=== PATIENT | male | born 1955 | race Caucasian/White ===

== ENCOUNTER 2016-09-19 14:26 | Emergency (ER) | payer MEDICARE, MEDICAID ==
[2016-09-19] MEDS ORDERED: HYDROmorphone* 1 MG/ML 1 ML SYR IV ONE ×3 (16:34→18:03)
[2016-09-19] MEDS ORDERED: Ondansetron INJ* 2 MG/ML VIAL IV ONE ×3 (16:34→21:17)
[2016-09-19] MEDS ORDERED: NS 0.9% 1000 ML* 1,000 ML IV ONE (16:35)
[2016-09-19] MEDS ORDERED: Ondansetron INJ* 2 MG/ML VIAL ONE (16:37)
[2016-09-19 16:40] LABS: Hematocrit 40 % (42-52); Hemoglobin 13.9 g/dl (14.0-18.0); Mean Corpuscular HGB Conc 35 g/dl (31-36); Mean Corpuscular Hemoglobin 29 pg (27-31); Mean Corpuscular Volume 85 fL (80-94); Mean Platelet Volume 8 um3 (7.4-10.4); Red Blood Count 4.73 10^6/ul (4.0-5.4); Red Cell Distribution Width 14 % (10.5-15); White Blood Count 9.8 10^3/ul (3.5-10.8)
[2016-09-19 17:04] LABS: Albumin 3.9 g/dL (3.2-5.2); C Reactive Protein 22.19 mg/L (< 5.00); EGFR African American 98.4 (>60); EGFR Non-African American 76.5 (>60); Globulin 2.8 g/dL (2-4); Potassium 3.3 mmol/L (3.5-5.0); Total Bilirubin 0.7 mg/dL (0.2-1.0); Total Protein 6.7 g/dL (6.4-8.9)
--- NOTE | 2016-09-19 18:12 | RAD ---
INDICATION: Right-sided abdominal pain. COMPARISON: Comparison is made with a prior CT of the abdomen and pelvis from September 13, 2012. TECHNIQUE: A CT scan of the abdomen and pelvis was performed without intravenous or oral contrast. Contiguous axial sections were obtained from the lung bases through the symphysis pubis. Images were reconstructed in the coronal and sagittal planes. FINDINGS: There is mild dependent bilateral lower lobe subsegmental atelectasis. No pleural effusion is present. The liver is normal in size without significant focal abnormality on this noncontrast study. The spleen is mildly enlarged without focal abnormality. No calcified gallstones are seen. The pancreas appears to be within normal limits. The kidneys and adrenal glands are normal in size. There are multiple small bilateral renal calculi measuring up to 5 mm within the right kidney. No hydronephrosis is seen. No ureteral or bladder calculi are noted. The aorta is normal in caliber with moderate calcific plaque present. No significant enlarged retroperitoneal lymph nodes are seen. The stomach, small and large bowel appear nondistended. There is a suture line present along the lateral aspect of the stomach possibly related to a gastric sleeve procedure. The patient is status post appendectomy by history. There is mild to moderate descending and sigmoid diverticulosis without evidence for diverticulitis. There is a suture line present within the sigmoid colon. Dense contrast is noted within a couple diverticuli in the right moderate likely from the patient's prior upper GI series from August 02, 2016. There is a periumbilical hernia containing fat. No free intraperitoneal air or fluid is seen. No significant focal osseous abnormality is seen. IMPRESSION: MULTIPLE BILATERAL RENAL CALCULI, NO EVIDENCE FOR HYDRONEPHROSIS, URETERAL OR BLADDER CALCULI.
[2016-09-19] MEDS ORDERED: Pantoprazole IV* 40 MG IV ONE (19:13)
[2016-09-19] MEDS ORDERED: Metoclopramide IV* 5 MG/ML 2 ML VIAL IV ONE (19:13)
[2016-09-19] MEDS ORDERED: Ketorolac INJ* 30 MG/ML 1 ML VIAL IV ONE (19:13)
--- NOTE | 2016-09-19 19:22 | ED ---
I, DoctorOrquidea, scribed for Abdullahi Ortiz MD on 09/19/16 at 1604 . GI/ HPI - HPI Summary HPI Summary: 61 year old male arrived to [facility] c/o abdominal pain for 3 weeks. He is experiencing some pain on the left side, but it is primarily localized to the right. He rates his pain as 10/10, and describes it as initially dull but now very sharp. The pain radiates from his abdomen to his right flank; it is aggravated with movement and pressure. He has also been experiencing vomiting, nausea, watery diarrhea, and decreased p.o. intake. Pt reports that for the past 2 weeks, he has been unable to hold down any food (vomits 15-30 minutes after eating). He recently had bariatric surgery (03/2016), and indicates that he has been experiencing increased nausea and vomiting since. He also has a kidney stone, but was told by his [employer] (Dr. Mccarty) that it was not of immediate concern. Additionally, he takes regular medication for gout. - History of Current Complaint Chief Complaint: EDAbdPain Time Seen by Provider: 09/19/16 15:48 Stated Complaint: ABD/BACK PAIN Hx Obtained From: Patient Onset/Duration: Started Weeks Ago, Still Present Timing: Constant Severity: Moderate Current Severity: Moderate Pain Intensity: 10 - on 0-10 numerical scale Location of Pain: RUQ, RLQ Pain Characteristics: Sharp - current, Dull - initially dull Pain Radiates to: Flank - right Associated Signs and Symptoms: Positive: Nausea, Vomiting, Diarrhea, Change in Appetite - decreased po intake, Flank Pain, Abdominal Pain Aggravating Factor(s): Movement - Additional Pertinent History Primary Care Physician: [id number] - Allergy/Home Medications Allergies/Adverse Reactions: Allergies Allergy/AdvReac Type Severity Reaction Status Date / Time Iodine Allergy Severe Rash Verified 04/05/16 07:28 Liraglutide [From Victoza] Allergy Severe See Comment Verified 04/05/16 07:28 Meperidine [From Demerol HCl] Allergy Severe Hives Verified 04/05/16 07:28 Phenol [From Victoza] Allergy Severe See Comment Verified 04/05/16 07:28 Propylene Glycol Allergy Severe See Comment Verified 04/05/16 07:28 [From Victoza] Shellfish Allergy Allergy Severe hives/sob Verified 04/05/16 07:28 SEAFOOD Allergy Rash Uncoded 04/05/16 07:28 PMH/Surg Hx/FS Hx/Imm Hx Endocrine/Hematology History: Reports: Hx Anticoagulant Therapy - Plavix, Hx Diabetes - TYPE II- INSULIN Denies: Hx Blood Disorders, Hx Thyroid Disease, Hx Unexplained Bleeding Cardiovascular History: Reports: Hx Angina, Hx Angioplasty - Feb 1992 x2, Hx Auto Implanted Cardiovert Defib - AICD, Hx Congestive Heart Failure - IN THE PAST, Hx Coronary Artery Disease, Hx Hypercholesterolemia, Hx Myocardial Infarction, Hx Pacemaker/ICD - [facility]- DR. WALLACE BURKETT FOLLOWS, Hx Peripheral Vascular Disease, Hx Syncope, Other Cardiovascular Problems/ Disorders - 1991-ANGIOPLASTY X 2,TRIPLE BYPASS-2003 AND 3 STENTS-2011 Denies: Hx Deep Vein Thrombosis, Hx Hypertension, Hx Rheumatic Fever, Hx Valvular Heart Disease Respiratory History: Reports: Hx Asthma - HX OF, Hx Chronic Bronchitis, Hx Chronic Obstructive Pulmonary Disease (COPD), Hx Sleep Apnea - WEARS CPAP AT HOME, Other Respiratory Problems/Disorders - PNEUMONIA IN THE END OF DECEMBER Denies: Hx Cystic Fibrosis, Hx Lung Cancer, Hx Pleural Effusion, Hx Pneumonia , Hx Pulmonary Edema, Hx Pulmonary Embolism, Hx Seasonal Allergies GI History: Reports: Hx Diverticulosis, Hx Gastroesophageal Reflux Disease, Other GI Disorders - DIVERTICULITIS BOWEL RESECTION, 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, OBESITY Denies: Hx Ulcer History: Reports: Hx Kidney Stones - HX OF STATES NONE CURRENTLY, Other Problems/Disorders - URETHRAL STRICTURES IN THE PAST Musculoskeletal History: Reports: Hx Gout Denies: Other Musculoskeletal History Sensory History: Reports: Hx Contacts or Glasses - GLASSES, Hx Eye Prosthesis - LEFT EYE Denies: Hx Cataracts, Hx Eye Injury, Hx Glaucoma, Hx Macular Degeneration, Hx Deafness, Hx Hearing Aid Opthamlomology History: Reports: Hx Contacts or Glasses - GLASSES, Hx Eye Prosthesis - LEFT EYE Denies: Hx Cataracts, Hx Eye Injury, Hx Glaucoma, Hx Macular Degeneration Neurological History: Reports: Hx Transient Ischemic Attacks (TIA), Other Neuro Impairments/Disorders - POSSIBLE TIA IN 2009- STATES NO RESIDUAL - Surgical History Surgery Procedure, Year, and Place: L EYE REMOVED. CABG x3. ICD/defib in place 08/2011. BOWEL RESECTION 11/2009. CARDIAC CATH WITH STENTS X 3. LEFT EYE INJURY & REMOVAL OF EYE. appendectomy age 12. Angioplasty. Right second finger. Left lower leg- COMPOUND FRACTURE Hx Anesthesia Reactions: No - Immunization History Date of Tetanus Vaccine: Unk Date of Influenza Vaccine: Fall 2013 Infectious Disease History: Denies: Hx Clostridium Difficile, Hx Hepatitis, Hx Human Immunodeficiency Virus (HIV), Hx of Known/Suspected MRSA, Hx Shingles, Hx Tuberculosis, Hx Known/ Suspected VRE, Hx Known/Suspected VRSA, History Other Infectious Disease, Traveled Outside the [place] in Last 30 Days - Family History Known Family History: Positive: Cardiac Disease, Diabetes - Social History Alcohol Use: None Hx Substance Use: No Substance Use Type: Reports: None Hx Tobacco Use: Yes - 1 PACK EVERY 4 DAYS Smoking Status (MU): Former Smoker Type: Cigarettes Amount Used/How Often: 2 PPD X 34 YEARS Length of Time of Smoking/Using Tobacco: 40 years Have You Smoked in the Last Year: No Review of Systems Negative: Fever Gastrointestinal: Other - decreased po intake Positive: Abdominal Pain, Vomiting, Diarrhea, Nausea All Other Systems Reviewed And Are Negative: Yes Physical Exam Triage Information Reviewed: Yes Vital Signs On Initial Exam: Initial Vitals Temp Pulse Resp BP Pulse Ox 99.1 F 78 20 118/71 100 09/19/16 14:28 09/19/16 14:28 09/19/16 14:28 09/19/16 14:28 09/19/16 14:28 Vital Signs Reviewed: Yes Appearance: Positive: Well-Appearing, Pain Distress Skin: Positive: Warm, Skin Color Reflects Adequate Perfusion, Dry Head/Face: Positive: Normal Head/Face Inspection Eyes: Positive: Normal ENT: Positive: Normal ENT inspection Neck: Positive: Supple, Nontender Respiratory/Lung Sounds: Positive: Clear to Auscultation, Breath Sounds Present Cardiovascular: Positive: RRR Abdomen Description: Positive: Soft. Negative: Nontender - tender in the right periumbilical region Bowel Sounds: Positive: Present Musculoskeletal: Positive: Normal Neurological: Positive: Normal Psychiatric: Positive: Normal, Affect/Mood Appropriate Diagnostics - Vital Signs Vital Signs Temp Pulse Resp BP Pulse Ox 09/19/16 14:28 99.1 F 78 20 118/71 100 - Laboratory Lab Results: Lab Results 09/19/16 09/19/16 09/19/16 Range/Units 15:50 15:50 15:50 WBC 9.8 (3.5-10.8) 10^3/ul RBC 4.73 (4.0-5.4) 10^6/ul Hgb 13.9 L (14.0-18.0) g/dl Hct 40 L (42-52) % MCV 85 (80-94) fL MCH 29 (27-31) pg MCHC 35 (31-36) g/dl RDW 14 (10.5-15) % Plt Count 171 (150-450) 10^3/ul MPV 8 (7.4-10.4) um3 Neut % (Auto) 77.7 (38-83) % Lymph % (Auto) 14.7 L (25-47) % Elk % (Auto) 5.7 (1-9) % Eos % (Auto) 1.7 (0-6) % Baso % (Auto) 0.2 (0-2) % Absolute Neuts (auto) 7.6 (1.5-7.7) 10^3/ul Absolute Lymphs (auto) 1.4 (1.0-4.8) 10^3/ul Absolute Monos (auto) 0.6 (0-0.8) 10^3/ul Absolute Eos (auto) 0.2 (0-0.6) 10^3/ul Absolute Basos (auto) 0 (0-0.2) 10^3/ul Absolute Nucleated RBC 0 10^3/ul Nucleated RBC % 0 Sodium 137 (133-145) mmol/L Potassium 3.3 L (3.5-5.0) mmol/L Chloride 102 (101-111) mmol/L Carbon Dioxide 27 (22-32) mmol/L Anion Gap 8 (2-11) mmol/L BUN 10 (6-24) mg/dL Creatinine 1.00 (0.67-1.17) mg/dL Est GFR ( Amer) 98.4 (>60) Est GFR (Non-Af Amer) 76.5 (>60) BUN/Creatinine Ratio 10.0 (8-20) Glucose 103 H (70-100) mg/dL Lactic Acid 0.8 (0.5-2.0) mmol/L Calcium 9.0 (8.6-10.3) mg/dL Total Bilirubin 0.70 (0.2-1.0) mg/dL AST 16 (13-39) U/L ALT 12 (7-52) U/L Alkaline Phosphatase 63 (34-104) U/L C-Reactive Protein 22.19 H (< 5.00) mg/L Total Protein 6.7 (6.4-8.9) g/dL Albumin 3.9 (3.2-5.2) g/dL Globulin 2.8 (2-4) g/dL Albumin/Globulin Ratio 1.4 (1-3) Lipase 22 (11.0-82.0) U/L Result Diagrams: 09/19/16 15:50 09/19/16 15:50 Lab Statement: Any lab studies that have been ordered have been reviewed, and results considered in the medical decision making process. - CT CT A/P W/O [CT] CT Interpretation Completed By: Radiologist - IMPRESSION: MULTIPLE BILATERAL RENAL CALCULI, NO EVIDENCE FOR HYDRONEPHROSIS, URETERAL OR BLADDER CALCULI. GIGU Course/Dx - Course Course Of Treatment: Mr. Rosenthal's labs and CT were unremarkable but his pain is severe and refractory to treatment. I consulted Dr. Vera and she recommended an upper GI series after consulting with Dr. Jose. We aare unable to obtain that at this time so will do a PO contrast CT. - Diagnoses Provider Diagnoses: Abdominal pain - Physician Notifications Discussed Care Of Patient With: Dr. Vera Discharge - Discharge Plan Condition: Stable Disposition: ADMITTED TO [facility] documentation as recorded by the Doctor mcqueen Tahera accurately reflects the service I personally performed and the decisions made by me, Abdullahi Ortiz MD.
[2016-09-19 20:19] LABS: Urine Bilirubin Negative (Negative); Urine Glucose Negative (Negative); Urine Nitrite Negative (Negative)
[2016-09-19 22:21] VITALS: BP 100/57
== END 2016-09-19 22:19 | disposition left against medical advice (07) ==
LOC: ED 14:26
DX: R11.2 Nausea with vomiting, unspecified (principal); R19.7 Diarrhea, unspecified; Z87.891 Personal history of nicotine dependence; R10.84 Generalized abdominal pain
CPT/HCPCS: 36415; 74176; 80053; 81003; 83605; 83690; 85025; 86140; 99284; J1170; J1885; J2405

== ENCOUNTER 2017-03-18 21:21 | Emergency (ER) | payer MEDICARE, MEDICAID ==
[2017-03-18] MEDS ORDERED: Aspirin Low Dose CHEW TAB* 81 MG PO ONE (21:27)
[2017-03-18 22:03] LABS: Hematocrit 42 % (42-52); Hemoglobin 14.6 g/dl (14.0-18.0); Mean Corpuscular HGB Conc 35 g/dl (31-36); Mean Corpuscular Hemoglobin 31 pg (27-31); Mean Corpuscular Volume 89 fL (80-94); Mean Platelet Volume 8 um3 (7.4-10.4); Red Blood Count 4.74 10^6/ul (4.0-5.4); Red Cell Distribution Width 13 % (10.5-15); White Blood Count 9.2 10^3/ul (3.5-10.8)
[2017-03-18 22:18] LABS: Albumin 4.1 g/dL (3.2-5.2); BUN/Creatinine Ratio 15.2 (8-20); Calcium 8.9 mg/dL (8.6-10.3); EGFR Non-African American 59.1 (>60); Globulin 2.5 g/dL (2-4); Potassium 4.9 mmol/L (3.5-5.0); Total Bilirubin 0.5 mg/dL (0.2-1.0); Total Protein 6.6 g/dL (6.4-8.9)
--- NOTE | 2017-03-18 22:22 | RAD ---
INDICATION: Chest pain COMPARISON: Chest x-ray dated March 23, 2016 TECHNIQUE: Single AP portable view of the chest was obtained. FINDINGS: Image quality is compromised due to the relative inferiority of a portable chest x-ray. Stable postoperative findings include a left upper chest cardiac pacemaker with one lead overlying the heart and sternotomy wires. The heart and mediastinum exhibit normal size and contour. The lungs are grossly clear. There is no evidence of a large pleural effusion. Visualized bones are normal for the patient's age. IMPRESSION: No radiographic evidence for acute cardiopulmonary abnormality on this portable chest x-ray.
[2017-03-18] MEDS ORDERED: HYDROmorphone INJ* 1 MG/ML CARPUJECT SYRINGE IV SLOW PU ONE (23:16)
[2017-03-18] MEDS ORDERED: Ondansetron INJ* 2 MG/ML VIAL IV ONE (23:16)
[2017-03-18] MEDS ORDERED: fentaNYL* 50 MCG/ML 2 ML VIAL (100 MCG VIAL) IV SLOW PU ONE (23:27)
--- NOTE | 2017-03-18 23:44 | ED ---
Austin Sanford Rebecca, scribed for Maria L Sewell MD on 03/18/17 at 2204 . HPI Chest Pain - HPI Summary HPI Summary: Pt is a 61 y/o M who presents to ED c/o CP. Pain began at 2000 tonight and has been constant since onset. Pain is in the left anterior region, characterized as heaviness and is currently severe, ranked 9/10. Took NTG at home and was given 324 mg ASA upon arrival at [facility]. Sx aggravated and alleviated by nothing. Additionally notes tingling in the left anterior chest at 1500 that resolved shortly after onset. PMHx [place] x3 and current sx are similar to prior MIs. Reports he is hypotensive at baseline. - History of Current Complaint Chief Complaint: EDChestPainROMI Time Seen by Provider: 03/18/17 22:01 Hx Obtained From: Patient Onset/Duration: Still Present Time of Onset: 20:00 Timing: Constant Current Severity: Severe Pain Intensity: 8 Pain Scale Used: 0-10 Numeric Chest Pain Location: Left Anterior Chest Pain Radiates: No Character: Pressure/Squeezing Aggravating Factor(s): Nothing Alleviating Factor(s): Nothing Associated Signs and Symptoms: Positive: Other: - Left anterior chest tingling - resolved - Additional Pertinent History Primary Care Physician: [id number] - Allergy/Home Medications Allergies/Adverse Reactions: Allergies Allergy/AdvReac Type Severity Reaction Status Date / Time Iodine Allergy Severe Rash Verified 03/18/17 22:01 Liraglutide [From Victoza] Allergy Severe See Comment Verified 03/18/17 22:01 Meperidine [From Demerol HCl] Allergy Severe Hives Verified 03/18/17 22:01 Phenol [From Victoza] Allergy Severe See Comment Verified 03/18/17 22:01 Propylene Glycol Allergy Severe See Comment Verified 03/18/17 22:01 [From Victoza] Shellfish Allergy Allergy Severe hives/sob Verified 03/18/17 22:01 SEAFOOD Allergy Rash Uncoded 03/18/17 22:01 PMH/Surg Hx/FS Hx/Imm Hx Endocrine/Hematology History: Reports: Hx Anticoagulant Therapy - Plavix, Hx Diabetes - TYPE II- INSULIN Denies: Hx Blood Disorders, Hx Thyroid Disease, Hx Unexplained Bleeding Cardiovascular History: Reports: Hx Angina, Hx Angioplasty - Feb 1992 x2, Hx Auto Implanted Cardiovert Defib - AICD, Hx Congestive Heart Failure - IN THE PAST, Hx Coronary Artery Disease, Hx Hypercholesterolemia, Hx Myocardial Infarction, Hx Pacemaker/ICD, Hx Peripheral Vascular Disease, Hx Syncope, Other Cardiovascular Problems/Disorders - 1991-ANGIOPLASTY X 2,TRIPLE BYPASS-2003 AND 3 STENTS-2011 Denies: Hx Deep Vein Thrombosis, Hx Hypertension, Hx Rheumatic Fever, Hx Valvular Heart Disease Respiratory History: Reports: Hx Asthma - HX OF, Hx Chronic Bronchitis, Hx Chronic Obstructive Pulmonary Disease (COPD), Hx Sleep Apnea - WEARS CPAP AT HOME, Other Respiratory Problems/Disorders - PNEUMONIA IN THE END OF DECEMBER Denies: Hx Cystic Fibrosis, Hx Lung Cancer, Hx Pleural Effusion, Hx Pneumonia , Hx Pulmonary Edema, Hx Pulmonary Embolism, Hx Seasonal Allergies GI History: Reports: Hx Diverticulosis, Hx Gastroesophageal Reflux Disease, Other GI Disorders - DIVERTICULITIS BOWEL RESECTION, 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, OBESITY Denies: Hx Ulcer History: Reports: Hx Kidney Stones - HX OF STATES NONE CURRENTLY, Other Problems/Disorders - URETHRAL STRICTURES IN THE PAST Musculoskeletal History: Reports: Hx Gout Denies: Other Musculoskeletal History Sensory History: Reports: Hx Contacts or Glasses - GLASSES, Hx Eye Prosthesis - LEFT EYE Denies: Hx Cataracts, Hx Eye Injury, Hx Glaucoma, Hx Macular Degeneration, Hx Deafness, Hx Hearing Aid Opthamlomology History: Reports: Hx Contacts or Glasses - GLASSES, Hx Eye Prosthesis - LEFT EYE Denies: Hx Cataracts, Hx Eye Injury, Hx Glaucoma, Hx Macular Degeneration Neurological History: Reports: Hx Transient Ischemic Attacks (TIA), Other Neuro Impairments/Disorders - POSSIBLE TIA IN 2009- STATES NO RESIDUAL - Surgical History Surgery Procedure, Year, and Place: L EYE REMOVED. CABG x3. ICD/defib in place 08/2011. BOWEL RESECTION 11/2009. CARDIAC CATH WITH STENTS X 3. LEFT EYE INJURY & REMOVAL OF EYE. appendectomy age 12. Angioplasty. Right second finger. Left lower leg- COMPOUND FRACTURE Hx Anesthesia Reactions: No - Immunization History Date of Tetanus Vaccine: Unk Date of Influenza Vaccine: Fall 2013 Infectious Disease History: No Infectious Disease History: Denies: Hx Clostridium Difficile, Hx Hepatitis, Hx Human Immunodeficiency Virus (HIV), Hx of Known/Suspected MRSA, Hx Shingles, Hx Tuberculosis, Hx Known/ Suspected VRE, Hx Known/Suspected VRSA, History Other Infectious Disease, Traveled Outside the [place] in Last 30 Days - Family History Known Family History: Positive: Cardiac Disease, Diabetes - Social History Alcohol Use: None Hx Substance Use: No Substance Use Type: Reports: None Hx Tobacco Use: Yes - 1 PACK EVERY 4 DAYS Smoking Status (MU): Former Smoker Type: Cigarettes Amount Used/How Often: 2 PPD X 34 YEARS Length of Time of Smoking/Using Tobacco: 40 years Have You Smoked in the Last Year: No Review of Systems Positive: Other - Left anterior chest tingling - resolved. Negative: Fever Positive: Chest Pain All Other Systems Reviewed And Are Negative: Yes Physical Exam - Summary Physical Exam Summary: General: Well appearing, mild pain distress Skin: Warm, Skin Color Reflects Adequate Perfusion, Dry Eyes: EOMI, BLAISE ENT: Pharynx normal, TMs normal Neck: Supple, nontender Respiratory: CTA, breath sounds present, no rhonchi, no wheezes, no rales Cardiovascular: RRR, no murmur, no rub, no gallop, Abdomen: Soft, nontender, Non-distended, no guarding, no rebound Bowel: Present Musculoskeletal: SRAVANTHI, No edema Neuro: Sensory/motor intact, A&Ox3, CN intact 2-12 Psych: Affect/mood appropriate Triage Information Reviewed: Yes Vital Signs On Initial Exam: Initial Vitals Temp Pulse Resp BP Pulse Ox 98.6 F 73 14 124/79 98 03/18/17 21:24 03/18/17 21:24 03/18/17 21:24 03/18/17 21:24 03/18/17 21:24 Vital Signs Reviewed: Yes Diagnostics - Vital Signs Vital Signs Temp Pulse Resp BP Pulse Ox 03/18/17 21:24 98.6 F 73 14 124/79 98 - Laboratory Lab Results: Lab Results 03/18/17 03/18/17 03/18/17 Range/Units 21:52 21:52 21:52 WBC 9.2 (3.5-10.8) 10^3/ul RBC 4.74 (4.0-5.4) 10^6/ul Hgb 14.6 (14.0-18.0) g/dl Hct 42 (42-52) % MCV 89 (80-94) fL MCH 31 (27-31) pg MCHC 35 (31-36) g/dl RDW 13 (10.5-15) % Plt Count 165 (150-450) 10^3/ul MPV 8 (7.4-10.4) um3 Neut % (Auto) 67.4 (38-83) % Lymph % (Auto) 21.7 L (25-47) % Band[place] % (Auto) 6.9 (1-9) % Eos % (Auto) 3.0 (0-6) % Baso % (Auto) 1.0 (0-2) % Absolute Neuts (auto) 6.2 (1.5-7.7) 10^3/ul Absolute Lymphs (auto) 2.0 (1.0-4.8) 10^3/ul Absolute Monos (auto) 0.6 (0-0.8) 10^3/ul Absolute Eos (auto) 0.3 (0-0.6) 10^3/ul Absolute Basos (auto) 0.1 (0-0.2) 10^3/ul Absolute Nucleated RBC 0.01 10^3/ul Nucleated RBC % 0.1 INR (Anticoag Therapy) 0.91 (0.89-1.11) APTT 32.3 (26.0-36.3) seconds Sodium 135 (133-145) mmol/L Potassium 4.9 (3.5-5.0) mmol/L Chloride 100 L (101-111) mmol/L Carbon Dioxide 30 (22-32) mmol/L Anion Gap 5 (2-11) mmol/L BUN 19 (6-24) mg/dL Creatinine 1.25 H (0.67-1.17) mg/dL Est GFR ( Amer) 76.0 (>60) Est GFR (Non-Af Amer) 59.1 (>60) BUN/Creatinine Ratio 15.2 (8-20) Glucose 101 H (70-100) mg/dL Calcium 8.9 (8.6-10.3) mg/dL Total Bilirubin 0.50 (0.2-1.0) mg/dL AST 16 (13-39) U/L ALT 12 (7-52) U/L Alkaline Phosphatase 51 (34-104) U/L Troponin I 0.00 (<0.04) ng/mL Total Protein 6.6 (6.4-8.9) g/dL Albumin 4.1 (3.2-5.2) g/dL Globulin 2.5 (2-4) g/dL Albumin/Globulin Ratio 1.6 (1-3) Result Diagrams: 03/18/17 21:52 03/18/17 21:52 Lab Statement: Any lab studies that have been ordered have been reviewed, and results considered in the medical decision making process. - Radiology CXR Xray Interpretation: No Acute Changes - No radiographic evidence for acute cardiopulmonary abnormality on this portable chest x-ray. ED physician reviewed radiology repotr and agrees. Radiology Interpretation Completed By: Radiologist - EKG 2126 Cardiac Rate: NL - 68 bpm EKG Rhythm: Sinus Rhythm ST Segment: Non-Specific - Non-specific T wave changes EKG Interpretation: Anterior Qs EKG Comparison: No Significant Change - From EKG on 03/06/2016 Chest Pain Course/Dx - Course Course Of Treatment: 61 yo with cp since 8pm 01/05 not better with nitro. Pt was discussed with Dr. Ya for admission - Diagnoses Provider Diagnoses: Chest pain Discharge - Discharge Plan Condition: Stable Disposition: ADMITTED TO [facility] The documentation as recorded by the Austin mcqueen Rebecca accurately reflects the service I personally performed and the decisions made by , Maria L Sewell MD.
[2017-03-19 02:23] VITALS: BP 93/56
--- NOTE | 2017-03-21 02:47 | PN ---
Earlene Sanford Edward, scribed for Zachary Caceres on 03/19/17 at 0120 . Progress Note - Progress Note Date of Service: 03/19/17 Note: Pt wants pain medication. Discuss with Dr. Ya about pain medication and recommended not to prescribe any narcotics until he sees the patient. Pt wants to sign out AMA or walk out from the ER because he is demanding narcotics. Pt left AMA. The documentation as recorded by the karenibEarlene torres Edward accurately reflects the service I personally performed and the decisions made by Morris gray Emmanuel.
== END 2017-03-19 01:00 | disposition left against medical advice (07) ==
LOC: ED 21:21
DX: R07.9 Chest pain, unspecified (principal); Z79.02 Long term (current) use of antithrombotics/antiplatelets; Z95.810 Presence of automatic (implantable) cardiac defibrillator; I50.9 Heart failure, unspecified; I25.10 Atherosclerotic heart disease of native coronary artery without angina pectoris; E78.00 Pure hypercholesterolemia, unspecified; I25.2 Old myocardial infarction; I73.9 Peripheral vascular disease, unspecified; J44.9 Chronic obstructive pulmonary disease, unspecified; G47.30 Sleep apnea, unspecified; Z87.442 Personal history of urinary calculi; Z86.73 Personal history of transient ischemic attack (TIA), and cerebral infarction without residual deficits; Z87.891 Personal history of nicotine dependence; Z53.21 Procedure and treatment not carried out due to patient leaving prior to being seen by health care provider
CPT/HCPCS: 36415; 71010; 80053; 84484; 85025; 85610; 85730; 93005; 96374; 96375; 99284; A9270-GY; J1170; J2405; J3010

== ENCOUNTER 2017-06-26 07:11 | Day surgery (SDC) | payer MEDICAID, MEDICARE, OTHER ==
--- NOTE | 2017-06-16 07:32 | HP ---
PREOPERATIVE HISTORY AND PHYSICAL: DATE OF ADMISSION: 06/26/17 PROVIDER: Topher Barbour MD * (DICTATED BY ABNER CHANEY) CHIEF COMPLAINT: Left ankle pain. HISTORY OF PRESENT ILLNESS: Cholo is a 62-year-old gentleman who has been followed by Dr. Barbour for ongoing left ankle pain. He has had many injuries as he was playing football until his 40s, where he also sustained a compound fracture of his tibia. He reports that he had a deformity in the ankle. Ever since that time as the fracture healed with the some malalignment, the deformity in the ankle seems to be progressing worse. At this point, he has attempted bracing in the past with very minimal relief. He has also tried corticosteroids without any relief. He is interested in surgical intervention for correction of this problem. At this point, he states that this has been limiting his activities with any of his family. PAST MEDICAL HISTORY: 1. Cardiomyopathy. 2. Hypertension. 3. Congestive heart failure. 4. Angina. 5. COPD. 6. History of heart attack. 7. He has type 2 diabetes. 8. Gout. PAST SURGICAL HISTORY: 1. Three-vessel coronary artery bypass grafting in 2003. 2. Cardiac catheterization in 1991, 1992, and 2004. 3. Defibrillator placement in 2011. 4. Sigmoid colectomy in 2009. 5. Left eye surgery 1981. 6. Left eyelid surgery in 2014. 7. Bariatric surgery with a laparoscopic sleeve gastrectomy in 2015. 8. Lithotripsy x7. CURRENT MEDICATIONS: 1. Pravastatin sodium 80 mg 1 p.o. q.h.s. 2. Metoprolol succinate 50 mg 1 p.o. b.i.d. 3. Aspirin 81 mg 1 p.o. every day. 4. Protonix 40 mg 1 p.o. every day. 5. Fluticasone nasal spray 2 sprays in each nostril daily. 6. Nitroglycerine 0.5 mg p.r.n. 7. Ranexa 500 mg 2 tabs p.o. every day. 8. Plavix 75 mg 1 p.o. every day. 9. Albuterol sulfate nebulizer 4 times a day as needed. 10. Lasix 20 mg 1 p.o. every day. 11. Naproxen 500 mg 1 p.o. b.i.d. p.r.n. 12. Prochlorperazine maleate 10 mg as needed. 13. Allopurinol 100 mg p.o. every day. 14. Colchicine 0.6 mg 1 tab b.i.d. as needed. 15. Metoclopramide 5 mg p.o. every day as needed. 16. Vitamin B12 supplement. 17. Vitamin D supplement. 18. Potassium. ALLERGIES: DEMEROL, IODINE, SHELLFISH, DAIRY PRODUCTS, and VICTOZA. FAMILY HISTORY: Positive for diabetes, heart disease, hypertension, stroke, cancer and rheumatoid arthritis. SOCIAL HISTORY: He lives with his . He is disabled. He is a former smoker and quit in 2009. He smoked 1-1/2 to 2 packs of cigarettes per day since the age of 18 prior to that. He denies alcohol beverages. He exercises sporadically. REVIEW OF SYSTEMS: Constitutional: Negative for recent hospitalizations, fevers, chills, night sweats, or unexplained weight loss. Head: Negative for headache, lightheadedness or balance problems. Cardiovascular: Negative for chest or arm pain with exertion. Positive for history of heart attack. Negative for heart murmur, negative for heart palpitations. Positive for high blood pressure. Negative for embolism or deep vein thrombosis. Respiratory: Negative for chronic cough. Positive for shortness of breath with exertion. Positive for COPD. Gastrointestinal: Positive for occasional heartburn. Negative for nausea, vomiting, diarrhea, constipation. Positive for GERD. Genitourinary: Negative for nighttime urination, frequency of urination, urinary tract infection. Positive for kidney stones. Musculoskeletal: Negative for chronic back pain or recent fractures. Skin: Negative for rashes , lesions, lumps, or sores. Neurologic: Negative for seizure, stroke, epilepsy , depression, or anxiety. Endocrine: Positive for diabetes. Negative for thyroid problems. Hematology: Positive for easy bleeding due to the Plavix. Negative for anemia. PHYSICAL EXAMINATION GENERAL: He is a well-developed, well-nourished, pleasant male in no acute distress at rest. He is alert and oriented x3 with appropriate mood and affect. VITAL SIGNS: The patient is 5 feet 11 inches, 249 pounds, blood pressure 116/78 , pulse of 65, respirations 18. HEENT: Normocephalic, atraumatic. Hearing and vision are grossly intact. NECK: His trachea is midline. RESPIRATORY: Lungs are clear to auscultation bilaterally. No wheezes, rales, or rhonchi. CARDIOVASCULAR: Regular rate and rhythm. No murmurs, rubs, or gallops appreciated. Normal S1, S2. ABDOMEN: Soft, nondistended, nontender. Normal bowel sounds. EXTREMITIES: Exam of the left lower extremity, skin is intact without abrasions or open wounds. He has severely restricted dorsiflexion and plantar flexion of the ankle. He has limited inversion and eversion as well. He is tender to palpation along the anterior lateral ankle joint line. His sensation to light touch is intact. He has a 2+ dorsalis pedis pulse. IMAGING AND SCANNING: X-ray of the left ankle showed a severe valgus deformity with bone and bone arthritic changes. IMPRESSION: Left ankle osteoarthritis. PLAN: The patient is to undergo left ankle fusion by Dr. Barbour on 06/26/17. The risks, benefits, and postoperative course were discussed with the patient at length and he would like to proceed. A prescription for oxycodone was printed and given to the patient as he gets his medications filled through the [facility]. The patient is pending Cardiac and primary care clearance by his doctors through the [facility]. We will follow up with the patient in the postoperative phase. ABNER CHANEY [id number]/CPS #: [id number] MTDD
[~2017-06-26 07:11] MED LIST: Acetaminophen IV 1GM/100ML * 1,000 MG/100 ML VIAL IVPB ONE; Buffered Lidocaine 0.9% SYRIN* 5 ML/SYR SYRINGE INTRADERM ONE; Dexamethasone IV* 4 MG/ML 1 ML (4 MG) IV SLOW PU ONE; Lidocaine 2% PF * 5 ML VIAL ONE; Midazolam* 1 MG/ML 2 ML VIAL (2 MG) ONE; Sodium Citrate/Citric Acid* 15 ML UDC PO ONE; fentaNYL* 50 MCG/ML 2 ML VIAL (100 MCG VIAL) ONE
[2017-06-26] MEDS ORDERED: Dexamethasone IV* 4 MG/ML 1 ML (4 MG) ONE (07:49)
[2017-06-26] MEDS ORDERED: ceFAZolin 2 GM PREMIX (*) 2 GM/50 ML BAG IVPB ONE (07:49)
[2017-06-26] MEDS ORDERED: Buffered Lidocaine 0.9% SYRIN* 5 ML/SYR SYRINGE ONE (07:49)
[2017-06-26] MEDS ORDERED: Sodium Citrate/Citric Acid* 15 ML UDC ONE (07:49)
[2017-06-26] MEDS ORDERED: Acetaminophen IV 1GM/100ML * 100 ML ONE (08:33)
[2017-06-26] MEDS ORDERED: Bupivacaine 0.5% SDV PF* 10-30ML VIAL ONE (08:53)
[2017-06-26] MEDS ORDERED: Midazolam* 1 MG/ML 2 ML VIAL (2 MG) ONE (09:33)
[2017-06-26] MEDS ORDERED: fentaNYL* 50 MCG/ML 2 ML VIAL (100 MCG VIAL) ONE ×3 (10:15→11:30)
[2017-06-26] MEDS ORDERED: Gelfoam 12-7 ADSORBABL SPONGE* 1 EA SPONGE ONE (10:43)
[2017-06-26] MEDS ORDERED: Gelfoam Sponge SIZE 100* SPONGE ONE (10:44)
[2017-06-26] MEDS ORDERED: Ondansetron INJ* 2 MG/ML VIAL IV PRN (10:47)
[2017-06-26] MEDS ORDERED: Naloxone* 0.4 MG/ML 1 ML VIAL IV PRN (10:47)
[2017-06-26] MEDS ORDERED: oxyCODONE TAB* 5 MG TAB ONE (11:16)
[2017-06-26] MEDS ORDERED: HYDROmorphone INJ* 2 MG/ML CARPUJECT SYRINGE ONE (11:17)
[2017-06-26] MEDS: oxyCODONE TAB* 5 MG TAB PO PRN ×2 (11:17→11:18)
[2017-06-26] MEDS: fentaNYL* 50 MCG/ML 2 ML VIAL (100 MCG VIAL) IV PRN ×4 (11:20→11:49)
[2017-06-26] MEDS: HYDROmorphone INJ* 1 MG/ML CARPUJECT SYRINGE IV PRN ×5 (11:28→12:32)
[2017-06-26 12:34] VITALS: BP 114/77
--- NOTE | 2017-06-27 08:43 | RAD ---
INDICATION: Left ankle fusion, left ankle pain COMPARISONS: December 14, 2016 TECHNIQUE: Fluoroscopy was provided for a surgical procedure. Total fluoroscopy time is: 3.9 seconds FINDINGS: Spot images demonstrate fusion across the ankle. IMPRESSION: FLUOROSCOPY WAS PROVIDED FOR A SURGICAL PROCEDURE CPT II Codes: 6045F
--- NOTE | 2017-06-27 10:03 | OP ---
DATE OF OPERATION: 06/26/17 - [facility] DATE OF : 59 SURGEON: Topher Barbour MD MANAGER COMPETITIVE INTELLIGENCE: Polly Carvalho PA-C ANESTHESIOLOGIST: Ayanna Stratton MD ANESTHESIA: General PRE-OP DIAGNOSIS: Left tibiotalar arthrosis. POST-OP DIAGNOSIS: Left tibiotalar arthrosis. OPERATIVE PROCEDURE: Left tibiotalar fusion. DESCRIPTION OF PROCEDURE: The patient was taken to the operating room where longitudinal incision was made over the distal fibula then towards the sinus tarsi. Full-thickness flap raised off the anterior aspect of the tibiotalar joint and a lamina senior benefits specialist placed within the joint. A 5-mm power bur was used to prepare the joint for arthrodesis. We also harvested some cancellous bone from the lateral and distal fibular cortex. The bone graft was placed along the tibiotalar joint, held in the neutral position. We then compressed the joint using three 6.5-mm cannulated screws, two from the inferolateral aspect, one from the superolateral aspect. Good fixation was obtained throughout and neutral alignment noted. We then irrigated the lateral wound closing with 0 Vicryl sutures, 2-0 for the subcu, and philip for the skin. A compression dressing and plaster splint was applied. [id number]/[facility] #: [id number] MTDD
== END 2017-06-26 13:00 | disposition home or self-care (01) ==
LOC: OR 07:11
PROVIDERS: ATTEND Orthopaedic Surgery
DX: M19.172 Post-traumatic osteoarthritis, left ankle and foot (principal); Z87.891 Personal history of nicotine dependence; J44.9 Chronic obstructive pulmonary disease, unspecified; I25.2 Old myocardial infarction; I25.119 Atherosclerotic heart disease of native coronary artery with unspecified angina pectoris; Z79.01 Long term (current) use of anticoagulants; E11.9 Type 2 diabetes mellitus without complications; M10.9 Gout, unspecified; I42.9 Cardiomyopathy, unspecified; I11.0 Hypertensive heart disease with heart failure; I50.9 Heart failure, unspecified
CPT/HCPCS: 76000; A9270-GY; C1713; C1776; J0690; J1100; J1170; J2250; J3010

== ENCOUNTER 2017-11-20 07:57 | Day surgery (SDC) | payer OTHER, MEDICAID, MEDICARE ==
[~2017-11-20 07:57] MED LIST changes: -Acetaminophen IV 1GM/100ML * 1,000 MG/100 ML VIAL IVPB ONE; -Dexamethasone IV* 4 MG/ML 1 ML (4 MG) IV SLOW PU ONE; +Famotidine IV* 10 MG/ML 2 ML (20 mg) IV ONE; -Lidocaine 2% PF * 5 ML VIAL ONE; -Midazolam* 1 MG/ML 2 ML VIAL (2 MG) ONE; -Sodium Citrate/Citric Acid* 15 ML UDC PO ONE; -fentaNYL* 50 MCG/ML 2 ML VIAL (100 MCG VIAL) ONE
[2017-11-20] MEDS ORDERED: Buffered Lidocaine 0.9% SYRIN* 5 ML/SYR SYRINGE ONE (08:14)
[2017-11-20] MEDS ORDERED: ceFAZolin 2 GM PREMIX (*) 2 GM/50 ML BAG IVPB ONE (08:14)
[2017-11-20] MEDS ORDERED: Famotidine IV* 10 MG/ML 2 ML (20 mg) ONE (08:14)
[2017-11-20] MEDS ORDERED: ceFAZolin 1 GM in Dextrose (*) 1 GM/50 ML BAG IVPB ONE (09:01)
[2017-11-20] MEDS ORDERED: Midazolam* 1 MG/ML 5 ML VIAL (5 MG) ONE (09:27)
[2017-11-20] MEDS ORDERED: fentaNYL* 50 MCG/ML 2 ML VIAL (100 MCG VIAL) ONE ×2 (09:27→13:04)
[2017-11-20] MEDS ORDERED: Bupivacaine 0.5% SDV PF* 30ML VIAL ONE (10:31)
[2017-11-20] MEDS ORDERED: Lidocaine 2% PF * 5 ML VIAL ONE ×2 (10:57→11:03)
[2017-11-20] MEDS ORDERED: Dexamethasone IV* 4 MG/ML 1 ML (4 MG) ONE ×2 (10:57→11:03)
[2017-11-20] MEDS ORDERED: Ketorolac INJ* 30 MG/ML 1 ML VIAL ONE ×2 (10:57→11:03)
[2017-11-20] MEDS ORDERED: Propofol* 10 MG/ML 20 ML BTL IV PUSH ONE ×2 (10:57→11:03)
[2017-11-20] MEDS ORDERED: Acetaminophen TAB* 325 MG PO PRN (10:59)
[2017-11-20] MEDS ORDERED: Ondansetron INJ* 2 MG/ML VIAL IV PRN (10:59)
[2017-11-20] MEDS ORDERED: Naloxone* 0.4 MG/ML 1 ML VIAL IV PRN (10:59)
[2017-11-20] MEDS ORDERED: HYDROmorphone INJ* 0.5 MG/0.5 ML SYRINGE ONE (12:01)
[2017-11-20] MEDS ORDERED: HYDROmorphone INJ* 2 MG/ML CARPUJECT SYRINGE ONE (12:41)
[2017-11-20] MEDS ORDERED: Acetaminophen TAB* 325 MG ONE (12:41)
[2017-11-20] MEDS ORDERED: oxyCODONE TAB* 5 MG TAB ONE ×2 (12:41→12:53)
[2017-11-20] MEDS: HYDROmorphone INJ* 1 MG/ML CARPUJECT SYRINGE IV PRN ×5 (12:43→13:28)
[2017-11-20] MEDS: oxyCODONE TAB* 5 MG TAB PO PRN ×2 (12:44→12:54)
[2017-11-20] MEDS: fentaNYL* 50 MCG/ML 2 ML VIAL (100 MCG VIAL) IV SLOW PU PRN ×2 (13:09→13:21)
[2017-11-20] MEDS ORDERED: Midazolam* 1 MG/ML 2 ML VIAL (2 MG) IV ONE (14:18)
[2017-11-20] MEDS ORDERED: Midazolam* 1 MG/ML 2 ML VIAL (2 MG) ONE (14:19)
[2017-11-20] MEDS ORDERED: HYDROmorphone INJ* 1 MG/ML CARPUJECT SYRINGE IV SLOW PU PRN (14:20)
[2017-11-20 15:46] VITALS: BP 113/67
--- NOTE | 2017-11-20 20:55 | RAD ---
CPT II Codes: G9500 INDICATION: Left ankle fusion TECHNIQUE: Intraoperative fluoroscopy was provided during revision of left ankle fusion surgery. FINDINGS: 2 spot films depict placement of a plate and screw fixator spanning the distal tibia and talus.. Fluoroscopy time: 3.4 seconds IMPRESSION: As above.
--- NOTE | 2017-11-21 07:12 | OP ---
DATE OF OPERATION: 11/20/17 - [facility] DATE OF : 59 SURGEON: Topher Barbour MD COMMERCIAL SUBCONTRACTOR: ABNER Germain PRE-OP DIAGNOSIS: Nonunion left tibiotalar fusion. POST-OP DIAGNOSIS: Nonunion left tibiotalar fusion. OPERATIVE PROCEDURE: Removal of hardware left ankle, revision fusion with the Arthrex locking plate and tibial bone graft. DESCRIPTION OF PROCEDURE: The patient was taken to the operating room where a longitudinal incision was made over the distal fibula. Anterior to the fibula, we were able to expose the 3 cannulated screws crossing the tibiotalar joint, these were removed except for the topdown screw had the very end of it broken off some more down in the talus. Once these screws were removed, we were able to open the tibiotalar nonunion easily with a Sue elevator. A thorough pulsatile lavage was used to clean the joint and cultures were sent. We then prepared the joint for arthrodesis using a 4-mm power bur at low RPM. We harvested cancellous bone from the proximal tibia. A longitudinal incision was made at Gerdy's tubercle incising down through the periosteum and a small part of bur used to open the proximal lateral cortex. Cancellous bone was harvested from this area and then packed with allograft chips closing the periosteum with 2-0 Vicryl and philip for the skin. The copious amount of autograft was then placed along the tibiotalar joint. An osteotomy was performed in the fibula at this level about 4 to 5 cm proximally. The distal fibula removed. We were able to fashion the Arthrex locking ankle fusion plate to the posterolateral aspect, fixing it distally with locked screws, then placing the proximal 50 mm length compression cancellous screw and after over drilling the proximal cortex, a good compression was obtained. We then placed one more sliding compression screw proximally, and then the rest were locked. We also placed a 6.5-mm lag screw from the neck of the talus up to the medial malleolus giving good compression intentional on the medial aspect. X-rays intraoperatively showed satisfactory position of the hardware and the bone surfaces. We then irrigated the wound closing deeply with 2-0 Vicryl, subcu with 2-0 Vicryl and philip for the skin, and a compression dressing and plaster splint was applied. [id number]/[facility] #: [id number] MARTIND
== END 2017-11-20 15:46 | disposition home or self-care (01) ==
LOC: OR 07:57
PROVIDERS: ATTEND Orthopaedic Surgery
DX: M96.0 Pseudarthrosis after fusion or arthrodesis (principal); M19.172 Post-traumatic osteoarthritis, left ankle and foot; Z87.891 Personal history of nicotine dependence; I42.9 Cardiomyopathy, unspecified; I50.9 Heart failure, unspecified; J44.9 Chronic obstructive pulmonary disease, unspecified; Z79.01 Long term (current) use of anticoagulants; E11.9 Type 2 diabetes mellitus without complications; Z95.810 Presence of automatic (implantable) cardiac defibrillator; I11.0 Hypertensive heart disease with heart failure; Z95.1 Presence of aortocoronary bypass graft; M10.9 Gout, unspecified
CPT/HCPCS: 76001; 87070; 87073; 87205; A9270-GY; C1713; C1776; C9359; J0690; J1100; J1170; J1885; J2250; J2704; J3010

== ENCOUNTER 2018-07-05 11:08 | Emergency (ER) | payer MEDICARE, MEDICAID ==
[2018-07-05] MEDS ORDERED: Ondansetron INJ* 2 MG/ML VIAL IV ONE (11:30)
[2018-07-05] MEDS ORDERED: Morphine VIAL* 10 MG/ML 1 ML VIAL IV ONE ×2 (11:30→12:12)
[2018-07-05] MEDS ORDERED: NS 0.9% 1000 ML** 1,000 ML IV ONE (11:53)
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
[2018-07-05 12:00] LABS: ABS Basophils 0.1 10^3/ul (0-0.2); ABS Eosinophils 0.2 10^3/ul (0-0.6); ABS Lymphocytes 1.4 10^3/ul (1.0-4.8); ABS Monocytes 0.5 10^3/ul (0-0.8); ABS Neutrophils 5.1 10^3/ul (1.5-7.7); ABS Nucleated RBC 0 10^3/ul; Hematocrit 41 % (42-52); Hemoglobin 13.8 g/dl (14.0-18.0); Lymphocyte % 19.1 %; Mean Corpuscular HGB Conc 34 g/dl (31-36); Mean Corpuscular Hemoglobin 30 pg (27-31); Mean Corpuscular Volume 87 fL (80-94); Mean Platelet Volume 8.2 fL (7.4-10.4); Nucleated Red Blood Cells % 0.1; Platelet Count 187 10^3/ul (150-450); Red Blood Count 4.65 10^6/ul (4.00-5.40); Red Cell Distribution Width 14 % (10.5-15); White Blood Count 7.2 10^3/ul (3.5-10.8)
[2018-07-05 12:21] LABS: Albumin/Globulin Ratio 1.6 (1-3); BUN/Creatinine Ratio 11.4 (8-20); C Reactive Protein 4.37 mg/L (<8.01); EGFR African American 72.4 (>60); EGFR Non-African American 59.8 (>60); Globulin 2.5 g/dL (2-4); Potassium 4.2 mmol/L (3.5-5.0); Total Bilirubin 0.6 mg/dL (0.2-1.0); Total Protein 6.5 g/dL (6.4-8.9)
[2018-07-05 14:13] LABS: Urine Appearance Clear; Urine Bacteria Absent (Absent); Urine Bilirubin Negative (Negative); Urine Blood Negative (Negative); Urine Color Amber; Urine Glucose Negative (Negative); Urine Ketones Negative (Negative); Urine Nitrite Negative (Negative); Urine Protein Negative (Negative); Urine Red Blood Cell Absent (Absent); Urine Specific Gravity 1.018 (1.010-1.030); Urine Squamous Epithelial Cell Present (Absent); Urine Urobilinogen Negative (Negative); Urine White Blood Cell 1+(6-10/hpf) (Absent)
[2018-07-05 14:41] VITALS: BP 103/70
== END 2018-07-05 14:40 | disposition home or self-care (01) ==
LOC: ED 11:08
DX: R10.9 Unspecified abdominal pain (principal); N20.0 Calculus of kidney
CPT/HCPCS: 36415; 74176; 80053; 81003; 81015; 83605; 83690; 85025; 86140; 87086; 96361; 96374; 96375; 96376; 99282; J2270; J2405

== ENCOUNTER 2018-07-23 05:44 | Day surgery (SDC) | payer OTHER, MEDICARE, MEDICAID ==
[~2018-07-23 05:44] MED LIST changes: -Buffered Lidocaine 0.9% SYRIN* 5 ML/SYR SYRINGE INTRADERM ONE; +Buffered Lidocaine 1% SYRIN* 1 ML/SYRINGE INTRADERM ONE; -Famotidine IV* 10 MG/ML 2 ML (20 mg) IV ONE
[2018-07-23] MEDS ORDERED: Lactated Ringers 1000 ML Bag* 1,000 ML IV SCH (06:00)
[2018-07-23] MEDS ORDERED: ceFAZolin 2 GM PREMIX in ORs 2 GM/50 ML BAG IVPB ONE (07:08)
[2018-07-23] MEDS ORDERED: Midazolam* 1 MG/ML 5 ML VIAL (5 MG) ONE (07:33)
[2018-07-23] MEDS ORDERED: Propofol* 10 MG/ML 20 ML BTL ONE (07:49)
[2018-07-23] MEDS ORDERED: fentaNYL* 50 MCG/ML 2 ML VIAL (100 MCG VIAL) ONE ×2 (07:49→08:38)
[2018-07-23] MEDS ORDERED: Lidocaine 2% PF * 5 ML VIAL ONE (07:51)
[2018-07-23] MEDS ORDERED: ROPIVACAINE 5 MG/ML 30 ML BTL (0.5%) ONE (08:04)
[2018-07-23] MEDS ORDERED: Naloxone* 0.4 MG/ML 1 ML VIAL IV PRN (08:10)
[2018-07-23] MEDS ORDERED: Ondansetron INJ* 2 MG/ML VIAL IV PRN (08:10)
[2018-07-23] MEDS ORDERED: oxyCODONE TAB* 5 MG TAB ONE ×2 (08:27→08:29)
[2018-07-23] MEDS: oxyCODONE TAB* 5 MG TAB PO PRN ×2 (08:27→08:29)
[2018-07-23] MEDS: fentaNYL* 50 MCG/ML 2 ML VIAL (100 MCG VIAL) IV PRN ×5 (08:39→09:09)
[2018-07-23 09:47] VITALS: BP 112/49
--- NOTE | 2018-07-23 20:28 | OP ---
DATE OF OPERATION: 07/23/18 - [facility] DATE OF : 59 SURGEON: Topher Barbour MD PRE-OP DIAGNOSIS: Delayed union, left tibiotalar fusion with intramedullary nail. POST-OP DIAGNOSIS: Delayed union, left tibiotalar fusion with intramedullary nail. OPERATIVE PROCEDURE: Dynamization, left nail. DESCRIPTION OF PROCEDURE: The patient was taken to the operating room, where local anesthetic with some IV sedation was performed. We made two 1 cm incisions over the medial distal tibia directly over the screw heads which were removed with appropriate screwdriver. The incisions were then closed with interrupted Prolene sutures and a compression dressing applied. [id number]/[facility] #: [id number] MTDD
== END 2018-07-23 09:47 | disposition home or self-care (01) ==
LOC: OR 05:44
PROVIDERS: ATTEND Orthopaedic Surgery
DX: T84.89XA Other specified complication of internal orthopedic prosthetic devices, implants and grafts, initial encounter (principal); M19.072 Primary osteoarthritis, left ankle and foot; J44.9 Chronic obstructive pulmonary disease, unspecified; I10 Essential (primary) hypertension; E78.00 Pure hypercholesterolemia, unspecified; G89.4 Chronic pain syndrome; Z79.01 Long term (current) use of anticoagulants; Z87.891 Personal history of nicotine dependence; I25.10 Atherosclerotic heart disease of native coronary artery without angina pectoris; Z95.1 Presence of aortocoronary bypass graft; G47.33 Obstructive sleep apnea (adult) (pediatric); Z86.73 Personal history of transient ischemic attack (TIA), and cerebral infarction without residual deficits
CPT/HCPCS: 88300; A9270-GY; J0690; J2250; J2704; J2795; J3010

== ENCOUNTER → 2018-09-11 19:46 | Emergency (ER) | payer OTHER, MEDICARE, MEDICAID ==
--- OUTSIDE RECORDS SUMMARY | 2018-09-11 20:10 | XMS REPORT | Continuity of Care Document ---
:1955 External Reference #:[id number] Author Name Dawn Costa Care Team Providers Name Role Phone Ry Hays M.D., FOR[facility]LY [facility], [facility] Care Team Information Clinical Rn Unavailable Payers Date Identification Numbers Payment Provider Subscriber Effective: Policy Number: [id number] [facility] Medicare Solutions Marietta Rosenthal 2017 PayID: [id number] [address] [address] [place] [address] Policy Number: [id number] Veterans Choice Program Marietta Rosenthal PayID: [id number] [address] [place] [address] Expires: 2017 Policy Number: [id number] Va/ Non Va Care Marietta Rosenthal Group Name: Va/ Non Va Care [address] [address] PayID: [id number] [place] [address] Effective: 2015 Policy Number: [id number] Medicaid Marietta Rosenthal Group Name: 1 1 [address] PayID: [id number] [place] [address] Expires: 2017 Policy Number: [id number] Medicare Marietta Rosenthal PayID: [id number] [address] [place] [address] Advance Directives Description No Information Available Problems Description No Information Family History Date Family Member(s) Observation Comments General Diabetes General Heart Disease General Hypertension General Stroke General Cancer General Rheumatoid Arthritis Social History Type Date Description Comments Sex Unknown Lives With Occupation Disabled Occupation Retired ETOH Use Denies alcohol use Tobacco Use Start: Unknown End: Patient is a former smoker Unknown Smoking Status Reviewed: 09/04/18 Patient is a former smoker Exercise Type/Frequency Exercises sporadically Allergies, Adverse Reactions, Alerts Date Description Reaction Status Severity Comments 03/23/2016 Demerol Active 03/23/2016 Iodine Active 03/23/2016 Shellfish-derived Products Active 12/14/2016 Victoza Active Medications Medication Date Status Form Strength Qnty SIG Indications Ordering Provider Carrier 08/07/19 Active Tablets 5-325mg 30tab 1 by Topher 19 s mouth Km, every 6 M.D. hours as needed Tramadol HCL 08/03/19 Active Tablets 50mg 42tab 1 tablet Topher 19 s by mouth Km, every 6 M.D. hours as needed pain MS Contin 04/04/20 Active Tablets ER 15mg 10tab 1 tab by Topher 18 s delaney Barbour, twice a M.D. day Pravastatin 05/17/20 Active Tablets 80mg 90tab 1 tablet Ry Rooney Sodium 12 s once Hays, daily at M.D., bedtime FACUNNO Powell Metoprolol Active Tablets ER 50mg 1 by Unknown Succinate ER 00 24HR mouth twice Aspirin Adult Active Tablets DR 81mg take one Unknown Low Strength 00 tablet by mouth daily. Protonix Active Tablets DR 40mg 1 by Unknown 00 mouth twice daily Nasal Carson Active 2 sprays Unknown 00 each nostril daily Nitroglycerin Active Tablets 0.6mg prn Unknown 00 Sub Ranexa Active Tablets ER 500mg take 2 Unknown 00 12HR tablet by mouth daily Plavix Active Tablets 75mg 1 by Unknown 00 mouth every day Albuterol Active Nebulizer (5mg/ML) four Unknown Sulfate 00 0.5% times a day or as needed Lasix Active Tablets 20mg 1 by Unknown 00 mouth every day Naproxen Active Tablets 500mg 1 tablet Unknown 00 with food by mouth twice a day Prochlorperazine Active Tablets 10mg as Unknown Maleate 00 needed Allopurinol Active Tablets 100mg 1 by Unknown 00 mouth every day Colchicine Active Tablets 0.6mg take one Unknown 00 tablet by mouth twice a day as needed for pain from gout attack Metoclopramide Active Tablets 5mg JOSELINE Emerson MD Chemo -12 Active Unknown 00 Doxycycline Active as Unknown Hyclate 00 directed Oxycodone HCL 04/02/20 Hx Tablets 5mg 30tab 1 tabs Topher 18 - s by mouth Km, Unknown every M.D. 4-6 hours as needed Oxycodone HCL 11/21/19 Hx Tablets 5mg 40tab 1-2 tabs M19.172 Topher 18 - s by mouth Km, 12/26/19 every M.D. 18 4-6 hours as needed Carrier 10/25/19 Hx Tablets 5-325mg 30tab 1 by [id number] Topher 18 - s mouth Km, 11/21/19 every M.D. 18 six hours as needed for pain Knee Scooter 07/04/19 Hx use as M19.172 Topher 18 - needed Km, 10/24/19 M.D. 18 Oxycodone HCL 06/13/19 Hx Tablets 5mg 40tab 1-2 tabs Topher 18 - s by mouth Km, 10/24/19 every M.D. 18 4-6 hours as needed for post op pain surgery 06/26/17 Lortab 03/23/20 Hx Elixir 10-300mg/ 240ml 10ML PO Denisse 16 - 15ML Q4H prn B. Unknown Pain Eckenrode, BOTTOM PRESSER Hydrocodone 03/23/20 Hx Solution 7.5-325mg 240ml 10ml po Denisse Bitartrate/Aceta 16 - /15ML q4h prn B. minophen Unknown pain Eckenrode, BOTTOM PRESSER Carvedilol 01/16/20 Hx Tablets 25mg 60tab 1 by Ry Rooney 13 - s mouth Saúl, Unknown twice a M.D., day FACC, FASNC Losartan 10/06/19 Hx Tablets 25mg 30tab 1 by Ry Rooney Potassium 13 - s mouth Saúl, Unknown every M.D., day FACC, FASNC Ranexa 05/01/20 Hx Tablets ER 1000mg 60tab 1 tab by Ry Rooney 12 - 12HR s mouth Saúl, Unknown twice a M.D., day FACC, FASNC Furosemide 03/09/20 Hx Tablets 20mg 90tab 1 tab by Ry Rooney 12 - s mouth Saúl, Unknown every M.D., morning FACC, FASNC Plavix Hx Tablets 75mg 1 by Unknown 00 - mouth Unknown every day Fish Oil Hx Capsules 1000mg 1 by Unknown 00 - mouth Unknown twice daily Vitamin B12 Hx Tablets ER 1000mcg 1 by Unknown 00 - mouth Unknown every day Vitamin D Hx Tablets 1000Unit by mouth Unknown 00 - 2tabs Unknown every Am and 1 every PM Zetia Hx Tablets 10mg 1 by Unknown 00 - mouth Unknown every day Lantus Hx Solution 100Unit/M as Unknown 00 - L directed Unknown 36 units daily Novolin R Hx Solution 100Unit/M >150 0 Unknown 00 - L units; Unknown 150-200 6units; 201-250 12units; 251-300 18 units; 301-350 24 units; 351-400 30 units; >400 call md Gabapentin Hx Capsules 300mg 1 Tab Unknown 00 - tid Unknown Immunizations Description No Information Available Vital Signs Date Vital Result Comment 09/04/2018 7:56am Height 71 inches 5'11" Weight 260.00 lb Heart Rate 68 /min BP Systolic 110 mmHg BP Diastolic 72 mmHg Body Temperature 97.4 F Pain Level 6 BMI (Body Mass Index) 36.3 kg/m2 08/02/2018 7:57am Height 71 inches 5'11" BP Systolic 130 mmHg BP Diastolic 88 mmHg Respiratory Rate 16 /min Body Temperature 96.5 F Pain Level 8 07/10/2018 7:56am Height 71 inches 5'11" Heart Rate 84 /min BP Systolic 124 mmHg BP Diastolic 78 mmHg Body Temperature 98.0 F Pain Level 4 06/14/2018 8:05am Height 71 inches 5'11" Heart Rate 74 /min BP Systolic 130 mmHg BP Diastolic 84 mmHg Body Temperature 97.9 F Pain Level 4 05/15/2018 8:22am Height 71 inches 5'11" Heart Rate 72 /min BP Systolic 124 mmHg BP Diastolic 78 mmHg Body Temperature 97.0 F Pain Level 0 04/26/2018 10:49am Height 71 inches 5'11" Heart Rate 80 /min BP Systolic 112 mmHg BP Diastolic 70 mmHg Body Temperature 98.2 F Pain Level 0 04/10/2018 10:18am Height 71 inches 5'11" Heart Rate 72 /min BP Systolic 132 mmHg BP Diastolic 82 mmHg Body Temperature 98.2 F Pain Level 8 03/06/2018 7:58am Height 71 inches 5'11" Weight 259.00 lb Heart Rate 68 /min BP Systolic 118 mmHg BP Diastolic 68 mmHg Respiratory Rate 12 /min Body Temperature 97.1 F Pain Level 4 BMI (Body Mass Index) 36.1 kg/m2 02/08/2018 7:53am Height 71 inches 5'11" Weight 259.00 lb BP Systolic 132 mmHg BP Diastolic 74 mmHg Respiratory Rate 18 /min Body Temperature 96.6 F Pain Level 2 BMI (Body Mass Index) 36.1 kg/m2 01/18/2018 9:10am Height 71 inches 5'11" Weight 259.00 lb Heart Rate 78 /min BP Systolic Sitting 110 mmHg BP Diastolic Sitting 70 mmHg Respiratory Rate 16 /min Pain Level 0 BMI (Body Mass Index) 36.1 kg/m2 12/26/2017 8:09am Height 71 inches 5'11" Weight 259.00 lb Heart Rate 76 /min BP Systolic 122 mmHg BP Diastolic 76 mmHg Respiratory Rate 12 /min Pain Level 0 BMI (Body Mass Index) 36.1 kg/m2 12/12/2017 10:50am Height 71 inches 5'11" Weight 259.00 lb Heart Rate 84 /min BP Systolic 108 mmHg BP Diastolic 66 mmHg Respiratory Rate 12 /min Body Temperature 97.8 F Pain Level 0 BMI (Body Mass Index) 36.1 kg/m2 11/30/2017 8:31am Height 71 inches 5'11" Weight 255.00 lb BP Systolic 130 mmHg BP Diastolic 78 mmHg Respiratory Rate 20 /min Body Temperature 97.6 F Pain Level 7 BMI (Body Mass Index) 35.6 kg/m2 10/24/2017 8:56am Height 71 inches 5'11" Weight 255.00 lb BP Systolic 107 mmHg BP Diastolic 62 mmHg Respiratory Rate 16 /min Pain Level 9 BMI (Body Mass Index) 35.6 kg/m2 10/03/2017 8:55am Height 71 inches 5'11" Weight 250.00 lb Heart Rate 88 /min BP Systolic 100 mmHg BP Diastolic 64 mmHg Respiratory Rate 16 /min Body Temperature 97.1 F Pain Level 8 intermittent BMI (Body Mass Index) 34.9 kg/m2 09/12/2017 9:57am Heart Rate 72 /min BP Systolic 110 mmHg BP Diastolic 70 mmHg Respiratory Rate 16 /min Body Temperature 98.3 F Pain Level 0 08/29/2017 8:34am Height 71 inches 5'11" Heart Rate 83 /min Body Temperature 98.0 F Pain Level 10 08/10/2017 8:42am Height 71 inches 5'11" Weight 250.00 lb per patient Heart Rate 88 /min BP Systolic Sitting 128 mmHg BP Diastolic Sitting 84 mmHg Pain Level 0 BMI (Body Mass Index) 34.9 kg/m2 07/18/2017 10:27am Height 71 inches 5'11" Weight 249.00 lb Heart Rate 70 /min Respiratory Rate 16 /min Body Temperature 98.0 F Pain Level 0 BMI (Body Mass Index) 34.7 kg/m2 07/04/2017 10:38am Height 71 inches 5'11" Weight 249.00 lb Heart Rate 89 /min Respiratory Rate 14 /min Body Temperature 97.8 F Pain Level 0 BMI (Body Mass Index) 34.7 kg/m2 06/13/2017 8:51am Height 71 inches 5'11" Weight 249.00 lb Heart Rate 65 /min BP Systolic 116 mmHg BP Diastolic 78 mmHg Respiratory Rate 18 /min Body Temperature 97.1 F Pain Level 9 BMI (Body Mass Index) 34.7 kg/m2 12/14/2016 2:30pm Height 71 inches 5'11" Weight 239.00 lb Heart Rate 64 /min BP Systolic 114 mmHg BP Diastolic 79 mmHg Respiratory Rate 17 /min Body Temperature 98.1 F Pain Level 9 BMI (Body Mass Index) 33.3 kg/m2 10/03/2016 9:04am Height 71 inches 5'11" Weight 249.00 lb Heart Rate 66 /min BP Systolic 114 mmHg BP Diastolic 78 mmHg Respiratory Rate 16 /min Body Temperature 97.8 F BMI (Body Mass Index) 34.7 kg/m2 08/03/2016 1:25pm Height 71 inches 5'11" Weight 254.00 lb Heart Rate 62 /min BP Systolic 118 mmHg BP Diastolic 78 mmHg Respiratory Rate 18 /min Body Temperature 97.3 F BMI (Body Mass Index) 35.4 kg/m2 08/01/2016 11:28am Height 71 inches 5'11" Weight 258.00 lb Heart Rate 72 /min BP Systolic 118 mmHg BP Diastolic 72 mmHg Respiratory Rate 18 /min Body Temperature 97.1 F BMI (Body Mass Index) 36.0 kg/m2 04/15/2016 10:38am Height 71 inches 5'11" Weight 290.00 lb Heart Rate 78 /min BP Systolic 110 mmHg BP Diastolic 70 mmHg Respiratory Rate 16 /min Body Temperature 97.8 F BMI (Body Mass Index) 40.4 kg/m2 03/23/2016 1:18pm Height 71 inches 5'11" Weight 310.00 lb Heart Rate 78 /min BP Systolic 100 mmHg BP Diastolic 60 mmHg Respiratory Rate 16 /min Body Temperature 97.1 F BMI (Body Mass Index) 43.2 kg/m2 Results Test Date Facility Test Result H/L Range Note Laboratory test 07/23/2018 [facility] Surgical SEE RESULT [address] [place] [address] [phone] Laboratory test 04/02/2018 [facility] Surgical SEE RESULT [address] [place] [address] [phone] Wound 04/02/2018 [facility] Wound/Misc SEE RESULT 3 Culture/Sensi [address] Culture[place] [address] Stain [phone] Laboratory test 04/02/2018 [facility] Point of Care 100 mg/dL N 70-100 [address] [place] [address] [phone] Wound 11/20/2017 [facility] Wound/Misc SEE RESULT 5 Culture/Sensi [address] [place] [address] Stain [phone] Laboratory test 11/20/2017 [facility] Anaerobic SEE RESULT [address] [place] [address] [phone] Laboratory test 11/20/2017 [facility] Cancellous Chips SEE RESULTS 7, [address] 5cc BELO <[place] [address] NOTE> [phone] DBX 2.5 SEE RESULTS BELO <SEE NOTE> 9 Laboratory test 11/20/2017 [facility] Point of Care 103 mg/dL High 70-100 [address] [place] [address] [phone] Laboratory test 06/26/2017 [facility] Point of Care 124 mg/dL High 70-100 [address] [place] [address] [phone] Bariatric Panel 10/04/2016 [facility] Ferritin 242.3 N 24-336 12 Post Op [address] ng/[place] [address] [phone] Vitamin B12 761 pg/mL N 180-914 13 Folic Acid (Folate) 16.39 ng/mL N >3.99 14 Vitamin D Total 25(Oh) 25.1 ng/mL Low 30-50 15 Vitamin B1 (Whole Blood) 126 nmol/L N 70-180 16 Vitamin E Level 9.0 mg/L N 5.5 - 17.0 17 Comp Metabolic Panel 10/04/2016 [facility] Sodium 141 mmol/L N 133-[address] [place] [address] [phone] Potassium 4.2 mmol/L N 3.5-5.0 Chloride 104 mmol/L N 101-111 Co2 Carbon Dioxide 29 mmol/L N 22-32 Anion Gap 8 mmol/L N 2-11 Glucose 100 mg/dL N 70-100 Creatinine 1.08 mg/dL N 0.67-1.17 Calcium 9.3 mg/dL N 8.6-10.3 Albumin 4.1 g/dL N 3.2-5.2 Alkaline Phosphatase 67 U/L N 34-104 Alt 11 U/L N 7-52 Ast 13 U/L N 13-39 Egfr Non- 70.0 N >60 Egfr 90.0 N >60 18 Blood Urea Nitrogen 12 mg/dL N 6-24 BUN/Creatinine Ratio 11.1 N 8-20 Total Protein 6.7 g/dL N 6.4-8.9 Globulin 2.6 g/dL N 2-4 Albumin/Globulin Ratio 1.6 N 1-3 Total Bilirubin 0.90 mg/dL N 0.2-1.0 CBC Auto Diff 10/04/2016 [facility] White Blood 9.1 10^3/uL N 3.5-10.[address] [place] [address] [phone] Red Blood Count 5.04 10^6/uL N 4.0-5.4 Hemoglobin 14.4 g/dL N 14.0-18.0 Hematocrit 43 % N 42-52 Mean Corpuscular Volume 86 fL N 80-94 Mean Corpuscular Hemoglobin 29 pg N 27-31 Mean Corpuscular HGB Conc 33 g/dL N 31-36 Red Cell Distribution Width 14 % N 10.5-15 Platelet Count 187 10^3/uL N 150-450 Mean Platelet Volume 8 um3 N 7.4-10.4 Abs Neutrophils 6.9 10^3/uL N 1.5-7.7 Abs Lymphocytes 1.5 10^3/uL N 1.0-4.8 Abs Monocytes 0.5 10^3/uL N 0-0.8 Abs Eosinophils 0.2 10^3/uL N 0-0.6 Abs Basophils 0.1 10^3/uL N 0-0.2 Abs Nucleated RBC 0.01 10^3/uL N Granulocyte % 75.5 % N 38-83 Lymphocyte % 16.1 % Low 25-47 Monocyte % 5.6 % N 1-9 Eosinophil % 2.2 % N 0-6 Basophil % 0.6 % N 0-2 Nucleated Red Blood Cells % 0.1 N Iron & Iron Binding 10/04/2016 [facility] Iron 71 g/dL N 50- [address] [place] [address] [phone] Unsaturated Iron Binding 136 g/dL N Total Iron Binding Capacity 207 g/dL Low 250-450 % Iron Saturation 34 % N 15-55 Laboratory test 09/22/2016 [facility] Surgical SEE RESULT [address] Interface [place] [address] [phone] CBC Auto Diff 08/02/2016 [facility] White Blood 6.7 10^3/uL N 3.5-[address] Count .8 [place] [address] [phone] Red Blood Count 5.12 10^6/uL N 4.0-5.4 Hemoglobin 14.8 g/dL N 14.0-18.0 Hematocrit 44 % N 42-52 Mean Corpuscular Volume 85 fL N 80-94 Mean Corpuscular Hemoglobin 29 pg N 27-31 Mean Corpuscular HGB Conc 34 g/dL N 31-36 Red Cell Distribution Width 14 % N 10.5-15 Platelet Count 171 10^3/uL N 150-450 Mean Platelet Volume 8 um3 N 7.4-10.4 Abs Neutrophils 4.4 10^3/uL N 1.5-7.7 Abs Lymphocytes 1.6 10^3/uL N 1.0-4.8 Abs Monocytes 0.5 10^3/uL N 0-0.8 Abs Eosinophils 0.2 10^3/uL N 0-0.6 Abs Basophils 0 10^3/uL N 0-0.2 Abs Nucleated RBC 0.01 10^3/uL N Granulocyte % 65.7 % N 38-83 Lymphocyte % 23.2 % Low 25-47 Monocyte % 7.6 % N 1-9 Eosinophil % 2.8 % N 0-6 Basophil % 0.7 % N 0-2 Nucleated Red Blood Cells % 0.2 N Comp Metabolic Panel 08/02/2016 [facility] Sodium 138 mmol/L N 133-[address] [place] [address] [phone] Potassium 4.2 mmol/L N 3.5-5.0 Chloride 101 mmol/L N 101-111 Co2 Carbon Dioxide 32 mmol/L N 22-32 Anion Gap 5 mmol/L N 2-11 Glucose 97 mg/dL N 70-100 Blood Urea Nitrogen 12 mg/dL N 6-24 Creatinine 1.19 mg/dL High 0.67-1.17 BUN/Creatinine Ratio 10.1 N 8-20 Calcium 9.4 mg/dL N 8.6-10.3 Total Protein 6.8 g/dL N 6.4-8.9 Albumin 4.2 g/dL N 3.2-5.2 Globulin 2.6 g/dL N 2-4 Albumin/Globulin Ratio 1.6 N 1-3 Total Bilirubin 1.00 mg/dL N 0.2-1.0 Alkaline Phosphatase 66 U/L N 34-104 Alt 13 U/L N 7-52 Ast 14 U/L N 13-39 Egfr Non- 62.6 N >60 Egfr 80.5 N >60 20 Laboratory test 04/05/2016 [facility] Surgical SEE RESULT [address] [place] [address] [phone] Basic Metabolic 03/23/2016 [facility] Sodium 136 mmol/L N 133- [address] 5 [place] [address] [phone] Potassium 4.1 mmol/L N 3.5-5.0 Chloride 98 mmol/L Low 101-111 Co2 Carbon Dioxide 30 mmol/L N 22-32 Anion Gap 8 mmol/L N 2-11 Glucose 109 mg/dL High 70-100 Blood Urea Nitrogen 22 mg/dL N 6-24 Creatinine 1.41 mg/dL High 0.67-1.17 BUN/Creatinine Ratio 15.6 N 8-20 Calcium 10.0 mg/dL N 8.6-10.3 Egfr Non- 51.6 N >60 Egfr 66.4 N >60 22 CBC No Diff 03/23/2016 [facility] White Blood 8.6 10^3/uL N 3.5-10.[address] [place] [address] [phone] Red Blood Count 5.21 10^6/uL N 4.0-5.4 Hemoglobin 15.0 g/dL N 14.0-18.0 Hematocrit 44 % N 42-52 Mean Corpuscular Volume 85 fL N 80-94 Mean Corpuscular Hemoglobin 29 pg N 27-31 Mean Corpuscular HGB Conc 34 g/dL N 31-36 Red Cell Distribution Width 15 % N 10.5-15 Platelet Count 196 10^3/uL N 150-450 Mean Platelet Volume 8 um3 N 7.4-10.4 Basic Metabolic Panel 03/09/2012 [facility] Sodium 139 mmol/L 133-[address] [place] [address] [phone] Potassium 3.8 mmol/L 3.5-5.0 Chloride 103 mmol/L 101-111 Co2 Carbon Dioxide 28.0 mmol/L 22-32 Anion Gap 8.0 mmol/L 2-11 Glucose 79 mg/dL 70-100 Blood Urea Nitrogen 12 mg/dL 6-24 Creatinine 1.20 mg/dL 0.50-1.40 BUN/Creatinine Ratio 10.0 8-20 Calcium 9.0 mg/dL 8.1-9.9 Egfr Non- 63.1 >60 Egfr 81.1 >60 23 1 SEE RESULT BELOW Name: MARIETTA ROSENTHAL : [address]: Topher Barbour MD Acct: [id number] Unit: [id number] AGE: 63 Location: OR Re07/23/18 SEX: M Status: DEP SDC SPEC: [id number] DANNY: 07/23/18- [facility] DR: Topher Barbour MD REQ: [id number] RECD: 07/23/18 STATUS: SOUT _ ORDERED: LEVEL 1 FINAL DIAGNOSIS Leg, left, hardware removal: Foreign body (orthopedic hardware) (gross diagnosis) PRE-OPERATIVE DIAGNOSIS Left leg painful hardware. GROSS DESCRIPTION The specimen is received fresh labeled, Left Leg Hardware, and consists of two gold metallic threaded spline-headed screws averaging 3.2 x 0.5 cm. Per established hospital medical staff protocol, no tissue is submitted. Gross only. Signed by and Reported on: Denise Fisher MD 07/24/18 1324 END OF REPORT DEPARTMENT OF PATHOLOGY, [address] [place] [address] Derrick Farrell M.D. Director [facility] # [id number] 2 SEE RESULT BELOW Name: RAGINIMARIETTA : [address]: Topher Barbour MD Acct: [id number] Unit: [id number] AGE: 62 Location: OR Re04/02/18 SEX: M Status: REG [facility] SPEC: [id number] DANNY: 04/02/18- [facility] DR: Topher Barbour MD REQ: [id number] RECD: 04/02/18 STATUS: SOUT _ ORDERED: LEVEL 1 FINAL DIAGNOSIS Ankle, left, hardware removal: Foreign body (orthopedic hardware) (gross diagnosis). PRE-OPERATIVE DIAGNOSIS Arthritis left ankle and foot. GROSS DESCRIPTION The specimen is received fresh labeled, Left Ankle Hardware, and consists of a 10.5 by up to 2.5 x 0.4 cm blue metallic plate with multiple circular ovoid holes. The following inscription is identified: [id number] Arthrex [id number]. Received separately in the same container are nine nair to blue metallic threaded to partially threaded screws (drx-Skefp-apxaue, zjrdk-giznng-lplkgc) ranging from 3.1 x 0.4 cm to 5.5 x 0.5 cm. Also received are two previously disrupted blue metallic threaded spline-headed screws measuring 3.8 x 0.4 cm and 4.0 x 0.4 cm and a 1.3 x 0.2 cm nair circular washer. Per established hospital medical staff protocol, no tissue is submitted. Gross only. Signed by and Reported on: Denise Fisher MD 04/04/18 0928 END OF REPORT DEPARTMENT OF PATHOLOGY, [address] [place] [address] Derrick Farrell M.D. Director [facility] # [id number] 3 SEE RESULT BELOW Name: MARIETTA ROSENTHAL : [address]: Topher Barbour MD Acct: [id number] Unit: [id number] AGE: 62 Location: OR Re04/02/18 SEX: M Status: REG SDC SPEC: [id number] DANNY: 04/02/18 [facility] DR: Topher Barbour MD REQ: [id number] RECD: 04/02/18 STATUS: ИВАН OSULLIV[facility] DR: Crystal Bartlett MD _ SOURCE: ANKLE LEFT SPDESC: ORDERED: Culture Stain QUERIES: Specimen Description LEFT ANKLE Procedure Result Reported Site Wound/Misc Gram Stain Final 04/02/18- 1539 ML 2+ Epithelial Cells 2+ Neutrophils No Organisms Seen Wound/Misc Culture Final 04/04/18- 1035 ML No Growth Day 2 * - Main Lab . END OF REPORT DEPARTMENT OF PATHOLOGY, [address] [place] [address] Derrick Farrell M.D. Director [facility] # [id number] 4 Sieve Repairer: [id number] 5 SEE RESULT BELOW Name: MARIETTA ROSENTHAL : [address]: Topher Barbour MD Acct: [id number] Unit: [id number] AGE: 62 Location: OR Re11/20/17 SEX: M Status: REG SDC SPEC: [id number] DANNY: 11/20/17-1124 [facility] DR: Topher Barbour MD REQ: [id number] RECD: 11/20/17-1214 STATUS: RES OT DR: Crystal Bartlett MD _ SOURCE: WOUND SPDESC:ANKLE LEFT ORDERED: Anaerobic Cult, Culture Stain QUERIES: Specimen Description LEFT ANKLE FUSION REVISION Procedure Result Reported Site Anaerobic Culture PENDING Wound/Misc Gram Stain Final 11/20/17- 1249 ML 2+ Neutrophils No Organisms Seen Wound/Misc Culture PENDING * ML - Main Lab . END OF REPORT DEPARTMENT OF PATHOLOGY, [address] [place] [address] Derrick Farrell M.D. Director [facility] # [id number] 6 SEE RESULT BELOW Name: MARIETTA ROSENTHAL : [address]: Topher Barbour MD Acct: [id number] Unit: [id number] AGE: 62 Location: OR Re11/20/17 SEX: M Status: DEP SDC SPEC: [id number] DANNY: 11/20/17 [facility] DR: Topher Barbour MD REQ: [id number] RECD: 11/20/17 STATUS: ИВАН [facility] DR: Crystal Bartlett MD _ SOURCE: WOUND SPDESC:ANKLE LEFT ORDERED: Anaerobic Cult, Culture Stain QUERIES: Specimen Description LEFT ANKLE FUSION REVISION Procedure Result Reported Site Anaerobic Culture Final 11/24/17- 1024 ML No Growth Day 4 Wound/Misc Gram Stain Final 11/20/17- 1249 ML 2+ Neutrophils No Organisms Seen Wound/Misc Culture Final 11/24/17- 1024 ML No Growth Day 4 * ML - Main Lab . END OF REPORT DEPARTMENT OF PATHOLOGY, [address] [place] [id number] Derrick Farrell M.D. Director [facility] # [id number] 7 LEFT ANKLE FUSION REVISION, TIBIAL BONE GRAFT 8 SEE RESULTS BELOW [id number] CANC CHIPS 5CC TRANSFUSED 11/20/17 1116 [id number] CANC CHIPS 5CC TRANSFUSED 11/20/17 1116 9 SEE RESULTS BELOW [id number] DBX 2.5 TRANSFUSED 11/20/17 1116 10 Sieve Repairer: [id number] Sieve Repairer: [id number] FASTING 13 Normal Range 180 to 914 Indeterminate Range 145 to 180 Deficient Range <145 14 FASTING 15 FASTING 16 ADDITIONAL INFORMATION This test was developed and its performance characteristics determined by [facility] in a manner consistent with CLIA requirements. This test has not been cleared or approved by the U.S. Food and Drug Administration. Test Performed by: [facility] [place] [address] 17 ADDITIONAL INFORMATION This test was developed and its performance characteristics determined by [facility] in a manner consistent with CLIA requirements. This test has not been cleared or approved by the U.S. Food and Drug Administration. Test Performed by: [place] [id number] Because ethnic data is not always readily available, this report includes an eGFR for both -Americans and non- Americans. The National Kidney Disease Education Program (NKDEP) does not endorse the use of the MDRD equation for patients that are not between the ages of 18 and 70, are , have extremes of body size, muscle mass, or nutritional status, or are non- or non-. According to the National Kidney Foundation, irrespective of diagnosis, the stage of the disease is based on the level of kidney function: Stage Description GFR(mL/min/1.73 m(2)) 1 Kidney damage with normal or decreased GFR 90 2 Kidney damage with mild decrease in GFR 60-89 3 Moderate decrease in GFR 30-59 4 Severe decrease in GFR 15-29 5 Kidney failure <15 (or dialysis) 19 SEE RESULT BELOW Name: MARIETTA ROSENTHAL : [address]: Chris Mccarty MD Acct: [id number] Unit: [id number] AGE: 61 Location: ENDO Re09/22/16 SEX: M Status: DEP REF SPEC: [id number] DANNY: 09/22/16-161 [facility] DR: Chris Mccarty MD REQ: [id number] RECD: 09/22/16 STATUS: KENDRICK OSULLIVAN DR: Earl Jose MD _ ORDERED: H PYLORI [facility], LEVEL 4 Addendum: An immunohistochemical stain for Helicobacter pylori-like organisms was performed with appropriate controls and is negative. Addendum Signed (signature on file) Derrick Farrell MD 1525 FINAL DIAGNOSIS Stomach, antrum, biopsy: -- Antral-type gastric mucosa with focally active moderate chronic gastritis and reactive chemical gastropathy; see comment. COMMENT: An H. pylori immunostain is pending and the results will be reported in an addendum. CLINICAL HISTORY Nausea and vomiting POST-OPERATIVE DIAGNOSIS Larynx - normal; esophagus - normal, esophagogastric 42 - loose/open; stomach - sleeve, suture line intact, antrum approximately 8 nodules; duodenum - normal. Conclusions/Plan: Loose esophagogastric; status post gastric sleeve, nausea and vomiting GROSS DESCRIPTION The specimen is received in formalin labeled, Biopsies Gastric Antrum, and consists of three larsen-pink irregular to polypoid soft tissue fragments measuring 0.4 x 0.3 x 0.2 cm, 0.4 x 0.3 by up to 0.2 cm and 0.9 x 0.2 x 0.2 cm which are entirely submitted in one cassette. Signed (signature on file) Denise Fisher MD 1205 END OF REPORT * ML=Testing performed at Main Lab DEPARTMENT OF PATHOLOGY, [address] [place] [address] Derrick Farrell M.D. Director [facility] # [id number] 20 Because ethnic data is not always readily available, this report includes an eGFR for both -Americans and non- Americans. The National Kidney Disease Education Program (NKDEP) does not endorse the use of the MDRD equation for patients that are not between the ages of 18 and 70, are , have extremes of body size, muscle mass, or nutritional status, or are non- or non-. According to the National Kidney Foundation, irrespective of diagnosis, the stage of the disease is based on the level of kidney function: Stage Description GFR(mL/min/1.73 m(2)) 1 Kidney damage with normal or decreased GFR 90 2 Kidney damage with mild decrease in GFR 60-89 3 Moderate decrease in GFR 30-59 4 Severe decrease in GFR 15-29 5 Kidney failure <15 (or dialysis) 21 SEE RESULT BELOW Name: MARIETTA ROSENTHAL : [address]: Earl Jose MD Acct: [id number] Unit: [id number] AGE: 60 Location: [place] [address] Re04/05/16 SEX: M Status: ADM IN SPEC: [id number] DANNY: 04/05/16- [facility] DR: Earl Jose MD REQ: [id number] RECD: 04/05/161036 STATUS: SOUT _ ORDERED: LEVEL V FINAL DIAGNOSIS Stomach, partial resection: -- Segment of stomach with fundic-type mucosa and passive vascular congestion. PRE-OPERATIVE DIAGNOSIS Morbid obesity GROSS DESCRIPTION The specimen is received in formalin labeled, Portion of Stomach, and consists of a 24.5 x 5.5 x 4.0 cm portion of gastric tissue. The serosa is shaggy larsen-pink with multiple superficial serosal defects, scant adherent yellow fat and a prominent staple line. The mucosa is glistening larsen-pink with rare larsen-red sessile polyps and normal rugal folds. Spot Facer sections, one cassette. Signed (signature on file) Derrick Farrell MD 1441 END OF REPORT * ML=Testing performed at Main Lab DEPARTMENT OF PATHOLOGY, [address] [place] [address] Derrick Farrell M.D. Director [facility] # [id number] 22 Because ethnic data is not always readily available, this report includes an eGFR for both -Americans and non- Americans. The National Kidney Disease Education Program (NKDEP) does not endorse the use of the MDRD equation for patients that are not between the ages of 18 and 70, are , have extremes of body size, muscle mass, or nutritional status, or are non- or non-. According to the National Kidney Foundation, irrespective of diagnosis, the stage of the disease is based on the level of kidney function: Stage Description GFR(mL/min/1.73 m(2)) 1 Kidney damage with normal or decreased GFR 90 2 Kidney damage with mild decrease in GFR 60-89 3 Moderate decrease in GFR 30-59 4 Severe decrease in GFR 15-29 5 Kidney failure <15 (or dialysis) 23 Because ethnic data is not always readily available, this report includes an eGFR for both -Americans and non- Americans. The National Kidney Disease Education Program (NKDEP) does not endorse the use of the MDRD equation for patients that are not between the ages of 18 and 70, are , have extremes of body size, muscle mass, or nutritional status, or are non- or non-. According to the National Kidney Foundation, irrespective of diagnosis, the stage of the disease is based on the level of kidney function: Stage Description GFR(mL/min/1.73 m(2)) 1 Kidney damage with normal or decreased GFR 90 2 Kidney damage with mild decrease in GFR 60-89 3 Moderate decrease in GFR 30-59 4 Severe decrease in GFR 15-29 5 Kidney failure <15 (or dialysis) Procedures Date Code Description Status 07/23/2018 Removal Implant Deep Wire,Screw Nail,Ronny Or Plate Completed 07/23/2018 Removal Implant Deep Wire,Screw Nail,Ronny Or Plate Completed 04/26/2018 89419 Short Leg Cast Completed 04/10/2018 51449 Short Leg Cast Completed 04/02/2018 48075 Arthrodesis Ankle,open Completed 04/02/2018 69765 Arthrodesis Ankle,open Completed 04/02/2018 Bone Graft Any Donor Area Minr Or SM (Eg Dowel Or Button) Completed 04/02/2018 Bone Graft Any Donor Area Minr Or SM (Eg Dowel Or Button) Completed 12/12/2017 66618 Short Leg Cast Completed 11/20/2017 78836 Arthrodesis Ankle,open Completed 11/20/2017 62606 Arthrodesis Ankle,open Completed 08/29/2017 39108 Walking Cast Completed 07/18/2017 15772 Short Leg Cast Completed 07/04/2017 12603 Short Leg Cast Completed 06/26/2017 57052 Arthrodesis Ankle,open Completed 06/26/2017 00510 Arthrodesis Ankle,open Completed 04/05/2016 52595 Laparoscopy Surg Gerard Restrict Procedure Longitudinal Completed Gastrectomy 04/05/2016 63648 Laparoscopy Surg Gerard Restrict Procedure Longitudinal Completed Gastrectomy 10/13/2015 52420 EKG, Interpretation Only Completed 07/14/2014 87293 EKG, Interpretation Only Completed 04/11/2013 18233 EKG, Interpretation Only Completed 01/01/2013 42150 Icd eval w/iterative adjment single lead Icd Completed 10/04/2012 51272 EKG Tracing & Interpretation Completed 10/01/2012 31981 ECHO Transthoracic, Real-Time 2D With Doppler And Color Completed Flow 08/30/2012 61298 Interrogation Implant Cardiovasc Monitor System Incl Completed Analysis Int 08/30/2012 76576 Interrogation Implant Cardiovasc Monitor System Incl Completed Analysis Int 08/30/2012 61929 Icd eval w/iterative adjment single lead Icd Completed 08/30/2012 28561 EKG Tracing & Interpretation Completed 05/14/2012 19374 EKG, Interpretation Only Completed 05/13/2012 67257 EKG, Interpretation Only Completed 05/01/2012 05452 Icd eval w/iterative adjment single lead Icd Completed Encounters Type Date Location Provider Dx Diagnosis Office Visit 07/10/2018 [facility]bour, M19.072 Primary 8:15a [facility] [place] osteoarthritis, left ankle and foot Office Visit 05/15/2018 [facility], M19.072 Primary 8:45a [facility] osteoarthritis, left ankle and foot Office Visit 10/03/2017 [facility] Top[facility] M19.172 Post-traumatic 8:45a [facility] osteoarthritis, left ankle and foot Office Visit 09/12/2017 [facility] Top[facility] Barbour M19.172 Post-traumatic 9:45a [facility] osteoarthritis, left ankle and foot Office Visit 12/14/2016 [facility] M19.172 Post-traumatic 2:45p [facility] osteoarthritis, left ankle and foot Office Visit 10/03/2016 Surgical Earl Jose, R11.2 Nausea with 9:15a [facility] vomiting, unspecified R10.11 Right upper quadrant pain Z98.84 Bariatric surgery status Office Visit 08/03/2016 1:30p Surgical Earl Jose, K25.9 Gastric ulcer, [facility] unsp as acute or chronic, w/o hemor or perf R11.2 Nausea with vomiting, unspecified Z98.84 Bariatric surgery status Office Visit 08/01/2016 11:00a Surgical Earl Jose, R11.2 Nausea with [facility] vomiting, unspecified R10.11 Right upper quadrant pain Z98.84 Bariatric surgery status Office Visit 04/08/2016 [facility] Slime Wang E11.8 Type 2 diabetes 12:41p Assoc,yanira Barry NP mellitus with Hospitalists unspecified complications E78.5 Hyperlipidemia, unspecified I25.10 [facility] heart disease of [place] coronary artery w/o ang pctrs I10 Essential (primary) hypertension Office Visit 04/07/2016 [facility] Slime Wang E11.8 Type 2 diabetes 12:40p Assoc,pc Jhonny, BOTTOM PRESSER mellitus with Hospitalists unspecified complications E78.5 Hyperlipidemia, unspecified I10 Essential (primary) hypertension I25.10 Athscl heart disease of [place] coronary artery w/o ang pctrs Office Visit 04/06/2016 12:40p [facility] Joellen I25.10 Athscl heart Assoc,pc JOHANN Saenz disease of Hospitalists [place] coronary artery w/o ang pctrs E11.8 Type 2 diabetes mellitus with unspecified complications E78.5 Hyperlipidemia, unspecified I10 Essential (primary) hypertension Office Visit 04/05/2016 12:38p [facility] Desmond I25.10 Athscl heart Assoc,pc Al N.P. 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 Hayley Lemus, R07.89 Other chest Assoc,pc D.O. pain Hospitalists E11.9 Type 2 diabetes mellitus without complications I25.10 Athscl heart disease of [place] coronary artery w/o ang pctrs I10 Essential (primary) hypertension Office Visit 10/13/2015 1:34p [facility] Hayley Lemus, R07.89 Other chest Assoc,pc D.O. pain Hospitalists E11.9 Type 2 diabetes mellitus without complications I25.10 Athscl heart disease of [place] coronary artery w/o ang pctrs I10 Essential (primary) hypertension Office Visit 07/14/2014 9:36a [facility] Shandra Cortes 786.50 Pain Chest Assoc,pc Chuy NAbhilash Unspec Hospitalists 414.00 Coronary Atherosclerosis Unspec Type Vessel [place] 414.8 Ischemic Heart Disease Chronic Other Spec Forms Office Visit 07/13/2014 9:36a [facility] Tru Cordero 786.50 Pain Chest Assoc,pc Julius MALIK Unspec Hospitalists 414.00 Coronary Atherosclerosis Unspec Type Vessel [place] 414.8 Ischemic Heart Disease Chronic Other Spec Forms Office Visit 04/13/2013 2:32p [facility] Edwin Mazariegos 414.9 Ischemic [facility] [place] Os[place] M.D. Disease Chronic Unspec 786.50 Pain Chest Unspec Office Visit 04/13/2013 6:14p [facility] Linda 786.50 Pain Chest Assoc,yanira Farris M.D. Unspec Hospitalists 414.01 Coronary Atherosclerosis [place] 401.9 Hypertension Unspec 250.00 Diabetes Mellitus W/O Compl Type II Or Unspec Controlled Office Visit 04/12/2013 11:51a [facility] Mel Gibson, 786.50 Pain Chest Of [place] Unspec 414.9 Ischemic Heart Disease Chronic Unspec Office Visit 04/12/2013 6:14p [facility] [place] 786.50 Pain Chest Assoc,yanira Farris M.D. Unspec Hospitalists 414.01 Coronary Atherosclerosis [place] 401.9 Hypertension Unspec 250.00 Diabetes Mellitus W/O Compl Type II Or Unspec Controlled Office Visit 04/10/2013 6:12p [facility] [place] 786.50 Pain Chest Assoc,yanira Farris M.D. Unspec Hospitalists 414.01 Coronary Atherosclerosis [place] 401.9 Hypertension Unspec 250.00 Diabetes Mellitus W/O Compl Type II Or Unspec Controlled Office Visit 12/19/2012 10:28a [facility] [place] 577.0 Pancreatitis Acute Assoc,yanira Farris M.D. Hospitalists 789.06 Pain Abdominal Epigastric 414.00 Coronary Atherosclerosis Unspec Type Vessel [place] Office Visit 12/18/2012 [facility] Salvatore 577.0 Pancreatitis Acute 10:28a Assocyanira M.D. Hospitalists 789.06 Pain Abdominal Epigastric 414.00 Coronary Atherosclerosis Unspec Type Vessel [place] Office Visit 12/17/2012 [facility] [place] 577.0 Pancreatitis Acute 10:28a yanira Harmon M.D. Hospitalists 789.06 Pain Abdominal Epigastric 414.00 Coronary Atherosclerosis Unspec Type Vessel [place] Office Visit 12/16/2012 [facility] [place] 577.0 Pancreatitis Acute 10:27a Assyanira sepulveda M.D. Hospitalists 789.06 Pain Abdominal Epigastric 414.00 Coronary Atherosclerosis Unspec Type Vessel [place] Office Visit 12/15/2012 [facility] 577.0 Pancreatitis Acute 10:27a yanira Harmon M.D. Hospitalists 789.06 Pain Abdominal Epigastric 414.00 Coronary Atherosclerosis Unspec Type Vessel [place] Office Visit 10/04/2012 10:00a [facility] Ry Rooney 414.9 Ischemic [facility] [place] H[place] M.D., Disease Chronic FACC, FASNC Unspec Office Visit 05/16/2012 7:21p [facility] [place] 786.51 Pain Precordial Assoc,yanira Farris M.D. Hospitalists Office Visit 05/15/2012 7:21p [facility] [place] 786.51 Pain Precordial Assoc,yanira Farris M.D. Hospitalists Office Visit 05/14/2012 2:23p [facility] Edwin Mazariegos 414.9 Ischemic [facility] [place] Os[place] M.D. Disease Chronic Unspec 786.50 Pain Chest Unspec Office Visit 05/14/2012 [facility] [place] 786.51 Pain Precordial 7:20p Assyanira sepulveda M.D. Hospitalists Office Visit 05/13/2012 [facility] Tomi FAdam 414.01 Coronary 11:39a Julius Hanna Atherosclerosis [place] 401.1 Hypertension Benign 786.50 Pain Chest Unspec 250.00 Diabetes Mellitus W/O Compl Type II Or Unspec Controlled Office Visit 05/13/2012 [facility] [place] 411.1 Coronary Syndrome 7:20p yanira Harmon M.D. Intermediate Hospitalists [facility] [facility] 562.11 Diverticulitis 12:30a yanira Harmon M.D. 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 Tree Ann, 562.11 Diverticulitis 1:00a yanira Harmon M.D. Colon W/O Hospitalists Hemorrhage 414.9 Ischemic Heart Disease Chronic Unspec Office Visit 10/09/2009 12:30a [facility] [place], 414.9 Ischemic Heart yanira Harmon M.D. Disease Chronic Hospitalists Unspec 562.11 Diverticulitis Colon W/O Hemorrhage Office Visit 10/08/2009 12:15a [facility] Annika Brown, 276.51 Dehydration Assoc,pc M.D. 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 W/O Hemorrhage Hospitalists 789.00 Pain Abdominal Unspec Site Office 08/20/2009 [facility] 562.11 Diverticulitis Visit 12:30a yanira Harmon M.D. Colon W/O Hospitalists Hemorrhage Office 08/19/2009 [facility] 562.11 Diverticulitis Visit 12:45a yanira Harmon M.D. Colon W/O Hospitalists Hemorrhage 787.03 Vomiting Alone Office 08/18/2009 [facility] 562.11 Diverticulitis Visit 3:45a yanira Harmon M.D. Colon W/O Hospitalists Hemorrhage Plan of Treatment Future Appointment(s):10/04/2018 8:15 am - [facility] Topher Barbour M.D.M19.072 Primary osteoarthritis, left ankle and footNew Xrays:Ankle Left 3+VWS, Ordered: Follow up:1 woujnO57.2 Encounter for removal of internal fixation device
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
[2018-09-11] MEDS: Indomethacin CAP* 25 MG CAP PO ONE ×2 (20:42→21:50)
[2018-09-11 21:00] LABS: ABS Basophils 0.1 10^3/ul (0-0.2); ABS Eosinophils 0.2 10^3/ul (0-0.6); ABS Lymphocytes 1.6 10^3/ul (1.0-4.8); ABS Monocytes 0.8 10^3/ul (0-0.8); ABS Neutrophils 6.1 10^3/ul (1.5-7.7); ABS Nucleated RBC 0 10^3/ul; Eosinophil % 2.6 %; Hematocrit 39 % (36-46); Hemoglobin 13.5 g/dL (14.0-18.0); Mean Corpuscular HGB Conc 35 g/dL (31-36); Mean Corpuscular Hemoglobin 31 pg (27-31); Mean Corpuscular Volume 88 fL (80-94); Mean Platelet Volume 7.9 fL (7.4-10.4); Nucleated Red Blood Cells % 0; Platelet Count 199 10^3/uL (150-450); Red Blood Count 4.41 10^6 /uL (4.18-5.48); Red Cell Distribution Width 13 % (10.5-15); White Blood Count 8.8 10^3/uL (3.5-10.8)
[2018-09-11 21:13] LABS: BUN/Creatinine Ratio 11.6 (8-20); C Reactive Protein 81.72 mg/L (<8.01); Calcium 9.1 mg/dL (8.6-10.3); EGFR African American 73.8 (>60)
[2018-09-11 21:54] VITALS: BP 109/61
== END | disposition home or self-care (01) ==
LOC: ED 19:46
DX: M25.571 Pain in right ankle and joints of right foot (principal); R22.41 Localized swelling, mass and lump, right lower limb; Z79.01 Long term (current) use of anticoagulants; Z98.84 Bariatric surgery status
CPT/HCPCS: 36415; 80048; 85025; 86140; 99283; A9270-GY

== ENCOUNTER → 2018-10-19 14:31 | Emergency (ER) | payer OTHER ==
[~2018-10-19 14:31] MED LIST changes: -Buffered Lidocaine 1% SYRIN* 1 ML/SYRINGE INTRADERM ONE; +HYDROcodone/ACETAMIN 5-325 MG* 1 TAB PO ONE; +HYDROmorphone INJ1* 1 MG/ML SYRINGE IM ONE
--- OUTSIDE RECORDS SUMMARY | 2018-10-19 14:50 | XMS REPORT | Continuity of Care Document ---
:1955 External Reference #:[id number] Author Name Kinjal Caban Care Team Providers Name Role Phone Patient's Choice Primary Care Physician Unavailable Payers Date Identification Numbers Payment Provider Subscriber Policy Number: [id number] Va/ Non Va Care Marietta Rosenthal PayID: [id number] [address] [address] [place] [address] Effective: 2018 Policy Number: [facility] Medicare Solutions Marietta Rosenthal [id number] PayID: [id number] [address] [address] [place] [address] Effective: 2018 Policy Number: [id number] Medicaid Marietta Rosenthal Group Name: 1 1 [address] PayID: [id number] [place] [address] Expires: 2018 Policy Number: [id number] Va/ Non Va Care Marietta Rosenthal Group Name: Va/ Non Va Care [address] [address] PayID: [id number] [place] [address] Advance Directives Description No Information Available Problems [...] a former smoker Unknown Smoking Status Reviewed: 10/04/18 Patient is a former smoker Exercise Type/Frequency Exercises sporadically Allergies, Adverse Reactions, Alerts Active Allergies Reaction Severity Comments Date Demerol 03/23/2016 Iodine 03/23/2016 Shellfish-derived Products 03/23/2016 Victoza 12/14/2016 Medications Active Medications SIG Qnty Indications Ordering Date Provider Medrol take as 21units Topher Barbour, 09/27/2018 4mg TBPK directed on M.D. pack [place] 1 by mouth 30tabs Topher Barbour, 08/06/2018 5-325mg Tablets every 6 hours M.D. as needed Tramadol HCL 1 tablet by 42tabs Tophre Barbour, 08/02/2018 50mg Tablets mouth every 6 M.D. hours as needed pain MS Contin 1 tab by mouth 10tabs Topher Barbour, 04/04/2018 15mg Tablets ER twice a day M.D. Pravastatin Sodium 1 tablet once 90tabs Ry Rooney 05/17/2012 80mg daily at [facility], Tablets bedtime FACC, FASNC Potassium Unknown Vitamin D 1 by mouth Unknown (Cholecalciferol) every day 1000Unit Capsules Ezetimibe take one tablet Unknown 10mg Tablets daily, use generic Doxycycline Hyclate as directed Unknown B-12 Unknown Metoclopramide HCL Chemo Emerson, 5mg MD Tablets Colchicine take one tablet Unknown 0.6mg Tablets by mouth twice a day as needed for pain from gout attack Allopurinol 1 by mouth Unknown 100mg Tablets every day Prochlorperazine Maleate as needed Unknown 10mg Tablets Naproxen 1 tablet with Unknown 500mg Tablets food by mouth twice a day Lasix 1 by mouth Unknown 20mg Tablets every day Albuterol Sulfate four times a Unknown (5mg/ML) day or as 0.5% Nebulizer needed Plavix 1 by mouth Unknown 75mg Tablets every day Ranexa take 2 tablet Unknown 500mg Tablets ER 12HR by mouth daily Nitroglycerin prn Unknown 0.6mg Tablets Sub Nasal [place] 2 sprays each Unknown nostril daily Protonix 1 by mouth Unknown 40mg Tablets DR twice daily Aspirin Adult Low take one tablet Unknown Strength by mouth daily. 81mg Tablets DR Metoprolol Succinate ER 1 by mouth Unknown 50mg twice Tablets ER 24HR History Medications Oxycodone HCL 1 tabs by mouth 30tabs Topher Barbour, 04/02/2018 - 5mg every 4-6 hours M.D. Unknown Tablets as needed Oxycodone HCL 1-2 tabs by 40tabs M19.172 Topher Barbour, 11/20/2017 - 5mg mouth every 4-6 M.D. 12/25/2017 Tablets hours as needed [place] 1 by mouth every 30tabs M19.172 Topher Barbour, 10/24/2017 - 5-325mg six hours as M.D. 11/20/2017 Tablets needed for pain Knee Scooter use as needed M19.172 Topher Barbour, 07/04/2017 - M.D. 10/23/2017 Oxycodone HCL 1-2 tabs by 40tabs Topher Barbour, 06/13/2017 - 5mg mouth every 4-6 M.D. 10/23/2017 Tablets hours as needed for post op pain surgery 06/26/17 Lortab 10ML PO Q4H prn 240ml Denisse B. 03/23/2016 - Pain [place], CIGAR BINDER Unknown 10-300mg/15ML Elixir Hydrocodone 10ml po q4h prn 240ml Denisse B. 03/23/2016 - Bitartrate/Acetamin pain [place], CIGAR BINDER Unknown ophen 7.5-325mg/15ML Solution Carvedilol 1 by mouth twice 60tabs Ry Hays, 01/15/2013 - 25mg a day M.D., NUNO ZARAGOZA Unknown Tablets Losartan Potassium 1 by mouth every 30tabs Ry Hays, 10/05/2012 - day M.D., GAMALIEL ZARAGOZANC Unknown 25mg Tablets Ranexa 1 tab by mouth 60tabs Ry Hays, 05/01/2012 - 1000mg twice a day M.D., NUNO ZARAGOZA Unknown Tablets ER 12HR Furosemide 1 tab by mouth 90tabs Ry Hays, 03/09/2012 - 20mg every morning M.D., NUNO ZARAGOZA Unknown Tablets Plavix 1 by mouth every Unknown - 75mg Tablets day Unknown Fish Oil 1 by mouth twice Unknown - 1000mg daily Unknown Capsules Vitamin B12 1 by mouth every Unknown - 1000mcg day Unknown Tablets ER Vitamin D by mouth 2tabs Unknown - 1000Unit every Am and 1 Unknown Tablets every PM Zetia 1 by mouth every Unknown - 10mg Tablets day Unknown Lantus as directed 36 Unknown - 100Unit/ML units daily Unknown Solution Novolin R >150 0 units; Unknown - 150-200 6units; Unknown 100Unit/ML Solution 201-250 12units; 251-300 18 units; 301-350 24 units; 351-400 30 units; >400 call Gabapentin 1 Tab tid Unknown - 300mg Unknown Capsules Medications Administered in Office Medication SIG Qnty Indications Ordering Provider Date Triamcinolone (Kenalog) JOSE Germain 09/12/2018 Injection Immunizations Description No Information Available Vital Signs Date Vital Result Comment 10/04/2018 8:06am Height 71 inches 5'11" Heart Rate 72 /min BP Systolic 110 mmHg BP Diastolic 78 mmHg Respiratory Rate 12 /min Body Temperature 97.6 F Pain Level 8 09/12/2018 1:38pm Height 71 inches 5'11" Weight 250.00 lb Heart Rate 64 /min BP Systolic 100 mmHg BP Diastolic 70 mmHg Respiratory Rate 14 /min Body Temperature 97.9 F Pain Level 8 BMI (Body Mass Index) 34.9 kg/m2 09/04/2018 7:56am Height 71 inches 5'11" Weight [...] Result H/L Range Note Laboratory test 07/23/2018 [facility] Surgical SEE RESULT [address] [place] [address] [phone] Laboratory test 04/02/2018 [facility] Surgical SEE RESULT [address] [place] [address] [phone] Wound 04/02/2018 [facility] Wound/Misc SEE RESULT 3 Culture/Sensi [address] [address] Stain [phone] Laboratory test 04/02/2018 [facility] Point of Care 100 mg/dL N 70-100 [address] [place] [address] [phone] Laboratory test 11/20/2017 [facility] Anaerobic SEE RESULT [address] [place] [place] [address] [phone] Laboratory test 11/20/2017 [facility] Cancellous Chips SEE RESULTS 6, [address] 5cc BELO <[place] [address] NOTE> [phone] DBX 2.5 SEE RESULTS BELO <SEE NOTE> 8 Wound 11/20/2017 [facility] Wound/Misc SEE RESULT 9 Culture/Sensi [address] [place] [address] Stain [phone] Laboratory test 11/20/2017 [facility] Point of Care 103 mg/dL High 70-1 [address] Glucose 00 [place] [address] [phone] Laboratory test 06/26/2017 [facility] Point of Care 124 mg/dL High 70-1 [address] Glucose 00 [place] [address] [phone] Bariatric Panel 10/04/2016 [facility] Ferritin 242.3 N 24-3 12 Post Op [address] ng/mL 36 [place] [address] [phone] Vitamin B12 761 pg/mL N 180-916 13 Folic Acid (Folate) 16.39 ng/mL N >3.99 14 Vitamin D Total 25(Oh) 25.1 ng/mL Low 30-50 15 Vitamin B1 (Whole Blood) 126 nmol/L N 70-180 16 Vitamin E Level 9.0 mg/L N 5.5 - 17.0 17 Comp Metabolic Panel 10/04/2016 [facility] Sodium 141 mmol/L N 133-[address] [place] [address] [phone] Potassium 4.2 mmol/L N 3.5-5.0 Chloride 104 [...] mg/dL N 0.2-1.0 CBC Auto Diff 10/04/2016 [facility] White Blood 9.1 10^3/uL N 3.5-10.[address] [place] [address] [phone] Red Blood Count 5.04 10^6/uL N 4.0-5.4 [...] 0.1 N Iron & Iron Binding 10/04/2016 [facility] Iron 71 g/dL N 50- [address] [place] [address] [phone] Unsaturated Iron Binding 136 g/dL N Total Iron Binding Capacity 207 g/dL Low 250-450 % Iron Saturation 34 % N 15-55 Laboratory test 09/22/2016 [facility] Surgical SEE RESULT [address] [place] [address] [phone] CBC Auto Diff 08/02/2016 [facility] White Blood 6.7 10^3/uL N 3.5-[address] Count .8 [place] [address] [phone] Red Blood Count 5.12 10^6/uL N 4.0-5.4 [...] % 0.2 N Comp Metabolic Panel 08/02/2016 [facility] Sodium 138 mmol/L N 133-[address] [place] [address] [phone] Potassium 4.2 mmol/L N 3.5-5.0 Chloride 101 [...] 80.5 N >60 20 Laboratory test 04/05/2016 [facility] Surgical SEE RESULT [address] [place] [address] [phone] CBC No Diff 03/23/2016 [facility] White Blood 8.6 10^3/uL N 3.5-[address] Count .8 [place] [address] [phone] Red Blood Count 5.21 10^6/uL N 4.0-5.4 Hemoglobin 15.0 g/dL N 14.0-18.0 Hematocrit 44 % N 42-52 Mean Corpuscular Volume 85 fL N 80-94 Mean Corpuscular Hemoglobin 29 pg N 27-31 Mean Corpuscular HGB Conc 34 g/dL N 31-36 Red Cell Distribution Width 15 % N 10.5-15 Platelet Count 196 10^3/uL N 150-450 Mean Platelet Volume 8 um3 N 7.4-10.4 Basic Metabolic Panel 03/23/2016 [facility] Sodium 136 mmol/L N 133-[address] [place] [address] [phone] Potassium 4.1 mmol/L N 3.5-5.0 Chloride 98 mmol/L Low 101-111 Co2 Carbon Dioxide 30 mmol/L N 22-32 Anion Gap 8 mmol/L N 2-11 Glucose 109 mg/dL High 70-100 Blood Urea Nitrogen 22 mg/dL N 6-24 Creatinine 1.41 mg/dL High 0.67-1.17 BUN/Creatinine Ratio 15.6 N 8-20 Calcium 10.0 mg/dL N 8.6-10.3 Egfr Non- 51.6 N >60 Egfr 66.4 N >60 22 Basic Metabolic Panel 03/09/2012 [facility] Sodium 139 mmol/L 133-[address] [place] [address] [phone] Potassium 3.8 mmol/L 3.5-5.0 Chloride 103 mmol/L 101-111 Co2 Carbon Dioxide 28.0 mmol/L 22-32 Anion Gap 8.0 mmol/L 2-11 Glucose 79 mg/dL 70-100 Blood Urea Nitrogen 12 mg/dL 6-24 Creatinine 1.20 mg/dL 0.50-1.40 BUN/Creatinine Ratio 10.0 8-20 Calcium 9.0 mg/dL 8.1-9.9 Egfr Non- 63.1 >60 Egfr 81.1 >60 23 1 SEE RESULT BELOW Name: RAGINIMARIETTA : [address]: Topher Barbour MD Acct: [id number] Unit: [id number] AGE: 63 Location: OR Re07/23/18 SEX: M Status: [facility] SPEC: [id number] DANNY: 07/23/18- [facility] DR: Topher Barbour MD REQ: [id number] RECD: 07/23/18 STATUS: SOUT _ ORDERED: LEVEL [...] 1324 END OF REPORT DEPARTMENT OF PATHOLOGY, [address] [place] [address] Derrick Farrell M.D. Director [facility] # [id number] 2 SEE RESULT BELOW Name: MARIETTA ROSENTHAL : [address]: Topher Barbour MD Acct: [id number] Unit: [id number] AGE: 62 Location: OR Re04/02/18 SEX: M Status: REG [facility] SPEC: [id number] DANNY: 04/02/18- [facility] DR: Topher Barbour MD REQ: [id number] RECD: 04/02/18 STATUS: SOUT _ ORDERED: LEVEL [...] The following inscription is identified: [id number] Arthrex [id number]. Received separately in the same container are nine nair to blue metallic threaded to partially threaded screws (rke-Ploat-nlyyju, zvufy-zsrfcy-zlmpic) ranging from 3.1 x 0.4 cm to [...] 0928 END OF REPORT DEPARTMENT OF PATHOLOGY, [address] [place] [address] Derrick Farrell M.D. Director [facility] # [id number] 3 SEE RESULT BELOW Name: MARIETTA ROSENTHAL : [address]: Topher Barbour MD Acct: [id number] Unit: [id number] AGE: 62 Location: OR Re04/02/18 SEX: M Status: REG SDC SPEC: [id number] DANNY: 04/02/18 [facility] [address]: Topher Barbour MD REQ: [id number] RECD: 04/02/187 STATUS: ИВАН FOSS DR: Crystal Bartlett MD _ SOURCE: ANKLE LEFT SPDESC: ORDERED: Culture Stain QUERIES: Specimen Description LEFT ANKLE Procedure Result Reported Site Wound/Misc Gram Stain Final 04/02/18- 1539 ML 2+ Epithelial Cells 2+ Neutrophils No Organisms Seen Wound/Misc Culture Final 11/07/18- 1035 ML No Growth Day 2 * ML - Main Lab . END OF REPORT DEPARTMENT OF PATHOLOGY, [address] [place] [address] Derrick Farrell M.D. Director [facility] # [id number] 4 Firing Pin Gauger: [id number] 5 SEE RESULT BELOW Name: MARIETTA ROSENTHAL : [address]: Topher Barbour MD Acct: [id number] Unit: [id number] AGE: 62 Location: OR Re11/20/17 SEX: M Status: DEP SDC SPEC: [id number] DANNY: 11/20/17-112[address] [facility] [address]: Topher Barbour MD REQ: [id number] RECD: 11/20/17 STATUS: COMP OTHR DR: Crystal Bartlett MD _ SOURCE: WOUND [...] . END OF REPORT DEPARTMENT OF PATHOLOGY, [address] [place] [address] Derrick Farrell M.D. Director [facility] # [id number] 6 LEFT ANKLE FUSION REVISION, TIBIAL BONE GRAFT 7 SEE RESULTS BELOW [id number] CANC CHIPS 5CC TRANSFUSED 11/20/171115 [id number] CANC CHIPS 5CC TRANSFUSED 11/20/171115 8 SEE RESULTS BELOW [id number] DBX 2.5 TRANSFUSED 11/20/171115 9 SEE RESULT BELOW Name: MARIETTA ROSENTHAL : [address]: Topher Barbour MD Acct: [id number] Unit: [id number] AGE: 62 Location: OR Re11/20/17 SEX: M Status: REG SDC SPEC: [id number] DANNY: 11/20/17 [facility] [address]: Topher Barbour MD REQ: [id number] RECD: 11/20/17 STATUS: RES OT DR: Crystal Bartlett MD _ SOURCE: WOUND SPDESC:ANKLE LEFT ORDERED: Anaerobic Cult, Culture Stain QUERIES: Specimen Description LEFT ANKLE FUSION REVISION Procedure Result Reported Site Anaerobic Culture PENDING Wound/Misc Gram Stain Final 11/20/17- 1249 ML 2+ Neutrophils No Organisms Seen Wound/Misc Culture PENDING * ML - Main Lab . END OF REPORT DEPARTMENT OF PATHOLOGY, [address] [place] [address] Derrick Farrell M.D. Director [facility] # [id number] 10 Firing Pin Gauger: [id number] 11 Firing Pin Gauger: [id number] FASTING 13 Normal Range 180 to 914 Indeterminate Range 145 to 180 Deficient Range <145 14 FASTING 15 FASTING 16 ADDITIONAL INFORMATION This test was developed and its performance characteristics determined by [facility] in a manner consistent with CLIA requirements. This test has not been cleared or approved by the U.S. Food and Drug Administration. Test Performed by: [facility] [facility] - [address] [address] 17 ADDITIONAL INFORMATION This test was developed and its performance characteristics determined by [facility] in a manner consistent with CLIA requirements. This test has not been cleared or approved by the U.S. Food and Drug Administration. Test Performed by: [facility] [place] [address] 18 Because ethnic data is not always [...] [address]: Chris Mccarty MD Acct: [id number] Unit: [id number] AGE: 61 Location: ENDO Re09/22/16 SEX: M Status: DEP REF SPEC: [id number] DANNY: 09/22/16-1610 [facility] DR: Chris Mccarty MD REQ: [id number] RECD: 09/22/16 STATUS: KENDRICK OSULLIVAN DR: Earl Jose MD _ ORDERED: H PYLORI IMM , LEVEL 4 Addendum: An immunohistochemical stain for [...] Signed (signature on file) Denise Fisher MD 1209 END OF REPORT * ML=Testing performed at Main Lab DEPARTMENT OF PATHOLOGY, [address] [place] [address] Derrick Farrell M.D. Director [facility] # [id number] 20 Because ethnic data is not always [...] [address]: Earl Jose MD Acct: [id number] Unit: [id number] AGE: 60 Location: [place] [address]- Re04/05/16 SEX: M Status: ADM IN SPEC: [id number] DANNY: 04/05/16- [facility] DR: Earl Jose MD REQ: [id number] RECD: 04/05/161036 STATUS: SOUT _ ORDERED: LEVEL [...] larsen-red sessile polyps and normal rugal folds. Health Information Coder sections, one cassette. Signed (signature on file) Derrick Farrell MD 1441 END OF REPORT * ML=Testing performed at Main Lab DEPARTMENT OF PATHOLOGY, [address] [place] [address] Derrick Farrell M.D. Director [facility] # [id number] 22 Because ethnic data is not always [...] (or dialysis) Procedures Date Code Description Status 09/12/2018 Inject/Drain Joint/Bursa Major W/O US Completed 07/23/2018 Removal Implant Deep Wire,Screw Nail,Ronny Or Plate Completed 07/23/201850741 Removal Implant Deep Wire,Screw Nail,Ronny Or Plate Completed 04/26/2018 37646 Short Leg Cast Completed 04/10/2018 66485 Short Leg Cast Completed 04/02/2018 37752 Arthrodesis Ankle,open Completed 04/02/2018 61279 Arthrodesis Ankle,open Completed 04/02/2018 11614 Bone Graft Any Donor Area Minr Or SM (Eg Dowel Or Button) Completed 04/02/2018 Bone Graft Any Donor Area Minr Or SM (Eg Dowel Or Button) Completed 12/12/2017 26779 Short Leg Cast Completed 11/20/2017 85829 Arthrodesis Ankle,open Completed 11/20/2017 49595 Arthrodesis Ankle,open Completed 08/29/2017 61770 Walking Cast Completed 07/18/2017 67682 Short Leg Cast Completed 07/04/2017 80510 Short Leg Cast Completed 06/26/2017 03497 Arthrodesis Ankle,open Completed 06/26/2017 18261 Arthrodesis Ankle,open Completed 04/05/2016 93897 Laparoscopy Surg Gerard Restrict Procedure Longitudinal Completed Gastrectomy 04/05/2016 21801 Laparoscopy Surg Gerard Restrict Procedure Longitudinal Completed Gastrectomy 10/13/2015 85519 EKG, Interpretation Only Completed 07/14/2014 49299 EKG, Interpretation Only Completed 04/11/2013 89618 EKG, Interpretation Only Completed 01/01/2013 22967 Icd eval w/iterative adjment single lead Icd Completed 10/04/2012 32861 EKG Tracing & Interpretation Completed 10/01/2012 58200 ECHO Transthoracic, Real-Time 2D With Doppler And Color Completed Flow 08/30/2012 12066 Interrogation Implant Cardiovasc Monitor System Incl Completed Analysis Int 08/30/2012 29345 Interrogation Implant Cardiovasc Monitor System Incl Completed Analysis Int 08/30/2012 08289 Icd eval w/iterative adjment single lead Icd Completed 08/30/2012 18712 EKG Tracing & Interpretation Completed 05/14/2012 72359 EKG, Interpretation Only Completed 05/13/2012 62102 EKG, Interpretation Only Completed 05/01/2012 77338 Icd eval w/iterative adjment single lead Icd Completed Encounters Type Date Location Provider Dx Diagnosis Office Visit 09/12/2018 [facility] Mario M.D. M25.571 Pain in right 1:30p [facility] of right foot Office Visit 07/10/2018 Orthopedic Topher Barbour M19.072 Primary 8:15a [facility] [place] osteoarthritis, left ankle and foot Office Visit 05/15/2018 [facility]opedic Topher Barbour M19.072 Primary 8:45a [facility] [place] [...] Jose, R11.2 Nausea with [facility] RIGGS, CALI vomiting, unspecified R10.11 Right upper quadrant pain Z98.84 Bariatric surgery status Office Visit 04/08/2016 [facility] E11.8 Type 2 diabetes 12:41p Assoc,pc Jhonny, [employer]IG[employer] mellitus with Hospitalists unspecified complications E78.5 Hyperlipidemia, unspecified I25.10 [facility] heart disease [place] coronary artery w/o ang pctrs I10 Essential (primary) hypertension Office Visit 04/07/2016 [facility] E11.8 Type 2 diabetes 12:40p Assoc,pc Jhonny C[employer] B[employer]ER mellitus with Hospitalists unspecified complications E78.5 Hyperlipidemia, unspecified I10 Essential (primary) hypertension I25.10 Athscl heart disease of [place] coronary artery w/o ang pctrs Office Visit 04/06/2016 12:40p [facility] Joellen I25.10 Athscl heart Assoc,pc Letty, CIG[employer] B[employer]ER disease of Hospitalists [place] coronary artery w/o ang pctrs E11.8 Type 2 diabetes mellitus with unspecified complications E78.5 Hyperlipidemia, unspecified I10 Essential (primary) hypertension Office Visit 04/05/2016 12:38p [facility] Desmond I25.10 Athscl heart Assoc,pc Al, N.P. disease of Hospitalists [place] coronary artery w/o ang pctrs I10 Essential (primary) hypertension E78.5 Hyperlipidemia, unspecified E11.8 Type 2 diabetes mellitus with unspecified complications Office Visit 10/14/2015 11:18a [facility] Luis Carlos Lopez R07.89 Other chest Of [place] Specialist AT [facility] MD Terri, pain FACC, FSCAI I25.810 Atherosclerosis of CABG w/o angina pectoris Office Visit 10/14/2015 1:35p [facility] Hayley Lemus, R07.89 Other chest Assoc,pc D.O. pain Hospitalists E11.9 Type 2 diabetes mellitus without complications I25.10 Athscl heart disease of [place] coronary artery w/o ang pctrs I10 Essential (primary) hypertension Office Visit 10/13/2015 1:34p [facility] Hayley Lemus, R07.89 Other chest Assoc,pc D.OAdam pain Hospitalists E11.9 Type 2 diabetes mellitus without complications I25.10 Athscl heart disease of [place] coronary artery w/o ang pctrs I10 Essential (primary) hypertension Office Visit 07/14/2014 9:36a [facility] Shandra SAdam 786.50 Pain Chest Assoc,yanira Vera N.P. Unspec Hospitalists 414.00 Coronary Atherosclerosis Unspec Type Vessel [place]/Graft 414.8 Ischemic Heart Disease Chronic Other Spec Forms Office Visit 07/13/2014 9:36a [facility] Tru Cordero 786.50 Pain Chest Assoc,yanira MALIK M.D. Unspec Hospitalists 414.00 Coronary Atherosclerosis Unspec Type Vessel [place]/Graft 414.8 Ischemic Heart Disease Chronic Other Spec Forms Office Visit 04/13/2013 2:32p [facility] Edwin Mazariegos 414.9 Ischemic Heart Of [place] Osborn M.D. Disease Chronic Unspec 786.50 Pain Chest Unspec Office Visit 04/13/2013 6:14p [facility] Linda 786.50 Pain Chest Assoc,yanira Farris M.D. Unspec Hospitalists 414.01 Coronary Atherosclerosis [place] 401.9 Hypertension Unspec 250.00 Diabetes Mellitus W/O Compl Type II Or Unspec Controlled Office Visit 04/12/2013 6:14p [facility] Linda 786.50 Pain Chest Assoc,yanira Farris M.D. Unspec Hospitalists 414.01 Coronary Atherosclerosis [place] 401.9 Hypertension Unspec 250.00 Diabetes Mellitus W/O Compl Type II Or Unspec Controlled Office Visit 04/12/2013 11:51a [facility] Mel Gibson 786.50 Pain Chest Of [place] Unspec 414.9 Ischemic Heart Disease Chronic Unspec Office Visit 04/10/2013 6:12p [facility] Linda 786.50 Pain Chest Assoc,yanira Farris M.D. Unspec Hospitalists 414.01 Coronary Atherosclerosis [place] 401.9 Hypertension Unspec 250.00 Diabetes Mellitus W/O Compl Type II Or Unspec Controlled Office Visit 12/19/2012 10:28a [facility] Linda 577.0 Pancreatitis Acute Assoc,yanira Farris M.D. Hospitalists 789.06 Pain Abdominal Epigastric 414.00 Coronary Atherosclerosis Unspec Type Vessel [place]/Graft Office Visit 12/18/2012 [facility] Salvatore 577.0 Pancreatitis Acute 10:28a Assoc,yanira Christy M.D. Hospitalists 789.06 Pain Abdominal Epigastric 414.00 Coronary Atherosclerosis Unspec Type Vessel [place]/Graft Office Visit 12/17/2012 [facility] Salvatore 577.0 Pancreatitis Acute 10:28a yanira Harmon M.D. Hospitalists 789.06 Pain Abdominal Epigastric 414.00 Coronary Atherosclerosis Unspec Type Vessel [place]/Graft Office Visit 12/16/2012 [facility] Salvatore 577.0 Pancreatitis Acute 10:27a yanira Harmon M.D. Hospitalists 789.06 Pain Abdominal Epigastric 414.00 Coronary Atherosclerosis Unspec Type Vessel [place]/Graft Office Visit 12/15/2012 [facility] Salvatore 577.0 Pancreatitis Acute 10:27a yanira Harmon M.D. Hospitalists 789.06 Pain Abdominal Epigastric 414.00 Coronary Atherosclerosis Unspec Type Vessel [place]/Graft Office Visit 10/04/2012 10:00a [facility] Ry Rooney 414.9 Ischemic Heart [facility] [place] Hays M.D., Disease Chronic FACC, FASNC Unspec Office Visit 05/16/2012 7:21p [facility] Linda 786.51 Pain Precordial Assoc,yanira Farris M.D. Hospitalists Office Visit 05/15/2012 7:21p [facility] Linda 786.51 Pain Precordial Assoc,yanira Farris M.D. Hospitalists Office Visit 05/14/2012 2:23p [facility] Edwin Mazariegos 414.9 Ischemic [facility] [place] Osborn M.D. Disease Chronic Unspec 786.50 Pain Chest Unspec Office Visit 05/14/2012 [facility] Linda 786.51 Pain Precordial 7:20p yanira Harmon M.D. Hospitalists Office Visit 05/13/2012 [facility] Tomi Cohn 414.01 Coronary 11:39a Julius Hanna Atherosclerosis [place] 401.1 Hypertension Benign 786.50 Pain Chest Unspec 250.00 Diabetes Mellitus W/O Compl Type II Or Unspec Controlled Office Visit 05/13/2012 [facility] Linda 411.1 Coronary Syndrome 7:20p yanira Harmon M.D. Intermediate Hospitalists Office Visit 10/11/2009 [facility] Tree [place], 562.11 Diverticulitis 12:30a yanira Harmon M.D. 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 Colon W/O Hospitalists Hemorrhage 414.9 Ischemic Heart Disease Chronic Unspec Office [facility].9 Ischemic Heart yanira Harmon M.D. Disease Chronic Hospitalists Unspec 562.11 Diverticulitis Colon W/O Hemorrhage Office Visit 10/08/2009 12:15a [facility] Annika Brown, 276.51 Dehydration Assyanira sepulveda M.D. 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 W/O Hemorrhage Hospitalists 789.00 Pain Abdominal Unspec Site Office 08/20/2009 [facility] 562.11 Diverticulitis Visit 12:30a yanira Harmon M.D. Colon W/O Hospitalists Hemorrhage Office 08/19/2009 [facility] 562.11 Diverticulitis Visit 12:45a yanira Harmon M.D. Colon W/O Hospitalists Hemorrhage 787.03 Vomiting Alone Office 08/18/2009 [facility] 562.11 Diverticulitis Visit 3:45a yanira Harmon M.D. Colon W/O Hospitalists Hemorrhage Plan of Treatment 10/04/2018 - Topher Barbour M.D.M96.0 Pseudarthrosis after fusion or arthrodesisNew Xrays:Ankle Left 3+VWS, Ordered: 10/04/18CT Extremity Lower Left Wo, Ordered: 10/04/18New Therapy:Rehab ReferralFollow up:after testing is completed
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
[2018-10-19 19:51] VITALS: BP 113/69
== END | disposition home or self-care (01) ==
LOC: ED 14:31
DX: M65.9 Synovitis and tenosynovitis, unspecified (principal); M93.871 Other specified osteochondropathies, right ankle and foot; I11.0 Hypertensive heart disease with heart failure; I50.9 Heart failure, unspecified; I25.10 Atherosclerotic heart disease of native coronary artery without angina pectoris; I25.2 Old myocardial infarction; E11.9 Type 2 diabetes mellitus without complications; E78.00 Pure hypercholesterolemia, unspecified; J44.9 Chronic obstructive pulmonary disease, unspecified; K21.9 Gastro-esophageal reflux disease without esophagitis; K57.90 Diverticulosis of intestine, part unspecified, without perforation or abscess without bleeding; M10.9 Gout, unspecified; Z88.8 Allergy status to other drugs, medicaments and biological substances; Z79.01 Long term (current) use of anticoagulants; Z95.810 Presence of automatic (implantable) cardiac defibrillator; Z86.73 Personal history of transient ischemic attack (TIA), and cerebral infarction without residual deficits
CPT/HCPCS: 96372; 99282; J1170

== ENCOUNTER 2018-10-29 08:38 | Day surgery (SDC) | payer OTHER, MEDICAID ==
[2018-10-29] MEDS ORDERED: Acetaminophen TAB* 325 MG ONE (08:58)
[2018-10-29] MEDS ORDERED: ceFAZolin 2 GM PREMIX in ORs 2 GM/50 ML BAG ONE (08:58)
[2018-10-29] MEDS ORDERED: Succinylcholine* 20 MG/ML 10 ML VIAL ONE (09:54)
[2018-10-29] MEDS ORDERED: Lidocaine 2% PF * 5 ML VIAL ONE (09:54)
[2018-10-29] MEDS ORDERED: Propofol* 10 MG/ML 20 ML BTL ONE (09:54)
[2018-10-29] MEDS ORDERED: Rocuronium* 10 MG/ML VIAL ONE (09:56)
[2018-10-29] MEDS ORDERED: fentaNYL* 50 MCG/ML 2 ML VIAL (100 MCG VIAL) ONE (10:00)
[2018-10-29] MEDS ORDERED: Midazolam* 1 MG/ML 2 ML VIAL (2 MG) ONE (10:00)
[2018-10-29] MEDS ORDERED: Bupivacaine 0.5%* 50 ML VIAL ONE (11:08)
[2018-10-29] MEDS ORDERED: DiMENhydriNATE IV* 50 MG/ML VIAL IV PUSH PRN (11:51)
[2018-10-29] MEDS ORDERED: Naloxone* 0.4 MG/ML 1 ML VIAL IV PRN (11:51)
[2018-10-29] MEDS ORDERED: Dexamethasone IV* 4 MG/ML 1 ML (4 MG) ONE (11:52)
[2018-10-29] MEDS ORDERED: Metoclopramide IV* 5 MG/ML 2 ML VIAL ONE (11:52)
[2018-10-29] MEDS ORDERED: Ondansetron INJ* 2 MG/ML VIAL ONE (11:52)
[2018-10-29] MEDS ORDERED: Ketorolac INJ* 30 MG/ML 1 ML VIAL ONE (11:52)
[2018-10-29] MEDS ORDERED: Sugammadex * 200 MG/2 ML VIAL IV PUSH ONE (12:07)
[2018-10-29] MEDS ORDERED: oxyCODONE TAB* 5 MG TAB ONE (12:39)
[2018-10-29] MEDS ORDERED: HYDROmorphone INJ1* 1 MG/ML SYRINGE ONE ×2 (12:40→14:04)
[2018-10-29] MEDS: HYDROmorphone INJ1* 1 MG/ML SYRINGE IV PRN ×5 (12:41→13:07)
[2018-10-29] MEDS: oxyCODONE TAB* 5 MG TAB PO PRN ×2 (12:43→12:44)
[2018-10-29 14:38] VITALS: BP 116/71
--- NOTE | 2018-10-29 21:03 | OP ---
DATE OF OPERATION: 10/29/18 - [facility] DATE OF : 59 SURGEON: Topher Barbour MD. EXCHANGE CLERK: Polly Carvalho PA-C. PRE-OP DIAGNOSIS: Torn peroneus brevis longus tendon. POST-OP DIAGNOSIS: Torn peroneus brevis longus tendon OPERATIVE PROCEDURE: Tenodesis, peroneus brevis tendon to peroneus longus tendon with allograft interposition. DESCRIPTION OF PROCEDURE: The patient was taken to the operating room. In the lateral position, with thigh tourniquet, we made an 8-cm longitudinal incision over his peroneals just behind the fibula. We opened up the sheath by reflecting the peroneal retinaculum off the back of the fibula. The tendon degeneration and tearing was extreme. There was a proximal stump of the peroneus brevis muscle, no visible peroneus longus tendon at this level. Distally, there were two torn portions of each tendon below the malleolus leaving a gap of functional tissue probably 4 to 5 cm. We therefore used an allograft semitendinosus tendon. The tendon itself was doubled and then laid into a trough cut longitudinally in the proximal brevis musculature. With a 2-0 Monocryl suture, we sewed [id number] through the split brevis anchoring the allograft proximally. The two limbs were then brought down and each sewn individually into the brevis stump and longus stump and the two sewn together as well. This was a strong tenodesis construct. There was essentially no functional groove at the back of the fibula. We cut a longitudinal osteotomy just posterior to the lateral cortex and then drove this anteriorly with a bone tamp. Through-bone sutures of #1 Vicryl were used in a [place]-Angel fashion to repair the retinaculum and a good strong repair was achieved. We irrigated thoroughly closing the subcu with Monocryl, philip for the skin, and a compression dressing and plaster splint. [id number]/[facility] #: [id number] [facility] CENTERBhumi
== END 2018-10-29 14:47 | disposition home or self-care (01) ==
LOC: OR 08:38
PROVIDERS: ATTEND Orthopaedic Surgery
DX: M76.71 Peroneal tendinitis, right leg (principal); S86.311A Strain of muscle(s) and tendon(s) of peroneal muscle group at lower leg level, right leg, initial encounter; X58.XXXA Exposure to other specified factors, initial encounter; Y92.9 Unspecified place or not applicable; E78.00 Pure hypercholesterolemia, unspecified; I10 Essential (primary) hypertension; G89.29 Other chronic pain; Z95.0 Presence of cardiac pacemaker; Z68.34 Body mass index [BMI] 34.0-34.9, adult; I25.10 Atherosclerotic heart disease of native coronary artery without angina pectoris; Z95.1 Presence of aortocoronary bypass graft; J44.9 Chronic obstructive pulmonary disease, unspecified; I25.2 Old myocardial infarction; G47.33 Obstructive sleep apnea (adult) (pediatric); Z79.01 Long term (current) use of anticoagulants; Z79.899 Other long term (current) drug therapy; K21.9 Gastro-esophageal reflux disease without esophagitis
CPT/HCPCS: 88304; A9270-GY; C1776; J0330; J0690; J1100; J1170; J1885; J2250; J2405; J2704; J2765; J3010; J3490; L8699

== ENCOUNTER 2019-02-06 12:26 | Observation (INO) | payer MEDICARE, OTHER ==
--- OUTSIDE RECORDS SUMMARY | 2019-02-06 12:57 | XMS REPORT | Continuity of Care Document ---
:1955 External Reference #:[id number] Author Name Topher Barbour M.D. 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 Problems Description No Information Available Social History Type Date Description Comments Sex Unknown ETOH Use Denies alcohol use Tobacco Use Start: Unknown End: Patient is a former smoker Unknown Smoking Status Reviewed: 01/23/19 Patient is a former smoker Exercise Type/Frequency Exercises sporadically Allergies, Adverse Reactions, Alerts Active Allergies Reaction Severity Comments Date Demerol 03/23/2016 Iodine 03/23/2016 Shellfish-derived Products 03/23/2016 Victoza 12/14/2016 Medications Active Medications SIG Qnty Indications Ordering Date Provider Hurley 1 by mouth 60tabs M96.0 Topher Barbour, 01/23/2019 5-325mg Tablets every 8 hours M.D. as needed for pain Oxycodone HCL 1 tabs by mouth 30tabs Topher Barbour, 10/29/2018 5mg Tablets every 8 hours M.D. as needed Tramadol HCL 1 tablet by 42tabs Topher Barbour, 08/02/2018 50mg Tablets mouth every 6 [...] tablet Unknown 10mg Tablets daily, use generic B-12 Unknown Metoclopramide HCL Chemo Emerson MD 5mg Tablets Colchicine take one tablet Unknown 0.6mg [...] Nitroglycerin prn Unknown 0.6mg Tablets Sub Nasal Seymour 2 sprays each Unknown nostril daily Protonix 1 by mouth Unknown 40mg Tablets DR twice daily Aspirin Adult Low take one tablet Unknown Strength by mouth daily. 81mg Tablets DR Metoprolol Succinate ER 1 by mouth Unknown 50mg twice Tablets ER 24HR History Medications Keflex 1 by mouth three 30caps M96.0 Topher Barbour, 01/03/2019 - 500mg times a day M.D. 01/22/2019 Capsules Medrol take as directed 21units Topher Barbour, 09/27/2018 - 4mg TBPK on pack M.D. 10/22/2018 Hurley 1 by mouth every 6 60tabs Topher Barbour, 08/06/2018 - 5-325mg hours as needed M.D. 01/07/2019 Tablets Medications Administered in Office Medication SIG Qnty Indications Ordering Provider Date Triamcinolone (Kenalog) JOSE Germain 09/12/2018 Injection Immunizations Description No Information Available Vital Signs Date Vital Result Comment 01/23/2019 3:21pm Height 71 inches 5'11" Weight 247.00 lb Heart Rate 85 /min BP Systolic Sitting 128 mmHg BP Diastolic Sitting 76 mmHg Respiratory Rate 16 /min Pain Level 9 O2 % BldC Oximetry 97 % BMI (Body Mass Index) 34.4 kg/m2 01/03/2019 7:54am Height 71 inches 5'11" Weight 240.00 lb BP Systolic 128 mmHg BP Diastolic 86 mmHg Respiratory Rate 18 /min Body Temperature 96.4 F Pain Level 10 BMI (Body Mass Index) 33.5 kg/m2 Results Test Date Facility Test Result H/L Range Note Laboratory test 10/29/2018 [facility] Surgical SEE RESULT [address] [place] [address] [phone] Laboratory test 10/29/2018 [facility] Point of Care 110 mg/dL High 70-100 [address] [place] [place] [address] [phone] Laboratory test 10/28/2018 [facility] Semiten SEE RESULTS 3 , [address] BELO <[place] [address] NOTE> [phone] Xray 10/18/2018 [facility] US Soft Tissue <pending> [address] [place] [address] [phone] 1 SEE RESULT BELOW Name: MARIETTA EID : [address]: Topher Barbour MD Acct: [id number] Unit: [id number] AGE: 63 Location: OR Re10/29/18 SEX: M Status: TALIA CARTER SPEC: [id number] DANNY: 10/29/18- SUBM DR: Topher Barbour MD REQ: [id number] RECD: 10/29/18-3553 STATUS: SOUT _ ORDERED: LEVEL 3 FINAL DIAGNOSIS Right ankle, tendon, resection: -- Tophaceous gout. -- Tendon tissue with degenerative features. PRE-OPERATIVE DIAGNOSIS Right ankle pain GROSS DESCRIPTION The specimen is received in formalin labeled, Right Ankle Foreign Tendon, and consists of a 3.2 x 2.5 x 1.1 cm aggregate of larsen-red irregular rubbery fibrous tissue fragments admixed with scant bone. The cut surface is rubbery larsen-pink with a small amount of chalky larsen-white speckling. [facility] sections, one cassette. Signed by and Reported on: Derrick Farrell MD 09/14 1805 END OF REPORT DEPARTMENT OF PATHOLOGY, [address] [place] [address] Derrick Farrell M.D. Director [facility] # [id number] 2 [employer]: [id number] 3 PERONEAL TENDINITIS, RIGHT LEG 4 SEE RESULTS BELOW [id number] SEMITEN TRANSFUSED 10/29/18 1030 Procedures Date Code Description Status 11/08/2018 10412 Short Leg Cast Completed 10/29/2018 81526 Repair Flexor Tendon Leg Secondary W/Wo Graft Completed 10/29/2018 38637 Repair Flexor Tendon Leg Secondary W/Wo Graft Completed 10/29/2018 62062 Repair Flexor Tendon Leg Secondary W/Wo Graft Completed 10/29/2018 41710 Repair Flexor Tendon Leg Secondary W/Wo Graft Completed 09/12/2018 68220 Inject/Drain Joint/Bursa Major W/O US Completed Medical Devices Description No Information Available Encounters Type Date Location Provider Dx Diagnosis Office Visit 01/03/2019 Orthopedic Topher Barbour, M96.0 Pseudarthrosis after 8:00a Services Of [facility] fusion or arthrodesis C.M.A. Office Visit 10/16/2018 Orthopedic Topher Barbour, M76.71 Peroneal tendinitis, 8:45a Services Of M.D. right leg C.M.A. S84.11xA Injury of peroneal nerve at lower leg level, right leg, init M25.571 Pain in right ankle and joints of right foot Office Visit 10/04/2018 Raymond Obando 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 arthrodesis Office Visit 09/12/2018 Orthopedic Herberth Mario, M25.571 Pain in right ankle 1:30p Services Of [facility] and joints of right C.M.A. foot Assessments Date Code Description Provider 01/23/2019 M96.0 Pseudarthrosis after fusion or arthrodesis Topher Barbour M.D. 01/03/2019 M96.0 Pseudarthrosis after fusion or arthrodesis Topher Barbour M.D. 12/06/2018 M76.71 Peroneal tendinitis, right leg Topher Barbour M.D. 11/08/2018 M76.71 Peroneal tendinitis, right leg Topher Barbour M.D. 11/08/2018 M96.0 Pseudarthrosis after fusion or arthrodesis Topher Barbour M.D. 10/29/2018 S84.11xA Injury of peroneal nerve at lower leg level, JOSE Germain right leg, init 10/29/2018 S84.11xA Injury of peroneal nerve at lower leg level, Topher Barbour M.D. right leg, initial encounter 10/29/2018 M76.71 Peroneal tendinitis, right leg JOSE Germain 10/29/2018 M76.71 Peroneal tendinitis, right leg Topher Barbour M.D. 10/23/2018 M76.71 Peroneal tendinitis, right leg Topher Barbour M.D. 10/16/2018 M76.71 Peroneal tendinitis, right leg Topher Barbour M.D. 10/16/2018 S84.11xA Injury of peroneal nerve at lower leg level, Topher Barbour M.D. right leg, init 10/16/2018 M25.571 Pain in right ankle and joints of right foot Topher Barbour M.D. 10/04/2018 M96.0 Pseudarthrosis after fusion or arthrodesis Topher Barbour M.D. 09/12/2018 M25.571 Pain in right ankle and joints of right foot Polly Carvalho RPA-Andre 09/12/2018 M25.571 Pain in right ankle and joints of right foot Herberth Mario M.D. 09/04/2018 M19.072 Primary osteoarthritis, left ankle and foot Topher Barbour M.D. 09/04/2018 Z47.2 Encounter for removal of internal fixation Topher Barbour M.D. device 08/02/2018 M19.072 Primary osteoarthritis, left ankle and foot Topher Barbour M.D. Plan of Treatment Future Appointment(s):02/26/2019 8:00 am [facility] Topher Barbour M.D.M96.0 Pseudarthrosis after fusion or arthrodesisNew Medication:Hurley 5-325 mg - 1 by mouth every 8 hours as needed for painNew Therapy:Rehab Referral Functional Status Description No Information Available Mental Status Description No Information Available Referrals Description No Information Available
[2019-02-06] MEDS ORDERED: Nitroglycerin TAB 0.4 MG* 0.4 MG TAB SL ONE (13:04)
[2019-02-06] MEDS ORDERED: Aspirin 81 mg CHEW TAB* 81 MG TAB.CHEW PO ONE (13:04)
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
[2019-02-06 13:11] LABS: ABS Eosinophils 0.2 10^3/ul (0-0.6); ABS Lymphocytes 1.6 10^3/ul (1.0-4.8); ABS Monocytes 0.6 10^3/ul (0-0.8); ABS Neutrophils 5.2 10^3/ul (1.5-7.7); Eosinophil % 3.1 %; Hematocrit 40 % (42-52); Hemoglobin 13.8 g/dL (14.0-18.0); Lymphocyte % 20.7 %; Mean Corpuscular HGB Conc 34 g/dL (31-36); Mean Corpuscular Hemoglobin 30 pg (27-31); Mean Corpuscular Volume 89 fL (80-94); Mean Platelet Volume 8.2 fL (7.4-10.4); Platelet Count 180 10^3/uL (150-450); Red Blood Count 4.54 10^6 /uL (4.18-5.48); Red Cell Distribution Width 16 % (10-15); White Blood Count 7.6 10^3/uL (3.5-10.8)
[2019-02-06 13:18] LABS: INR 1.06 (0.82-1.09)
[2019-02-06 13:32] LABS: Albumin 4.1 g/dL (3.2-5.2); Albumin/Globulin Ratio 1.7 (1-3); BUN/Creatinine Ratio 9.6 (8-20); Calcium 9.2 mg/dL (8.6-10.3); EGFR African American 78.2 (>60); EGFR Non-African American 64.7 (>60); Globulin 2.4 g/dL (2-4); Potassium 3.7 mmol/L (3.5-5.0); Total Bilirubin 0.5 mg/dL (0.2-1.0); Total Protein 6.5 g/dL (6.4-8.9)
[2019-02-06] MEDS ORDERED: Morphine 4 MG/ML VIAL (1 ml) 4 MG/ML VIAL IV ONE (13:38)
[2019-02-06] MEDS ORDERED: Ondansetron INJ* 2 MG/ML VIAL IV ONE (14:10)
[2019-02-06] MEDS ORDERED: Albuterol 2.5 MG/3 ML NEB.SOL* (0.083%) INH PRN (15:11)
[2019-02-06] MEDS ORDERED: Albuterol HFA INHALER* 8 gm MDI INH PRN (15:11)
[2019-02-06] MEDS ORDERED: NITROGLYCERIN 0.6 MG SL PRN (15:11)
[2019-02-06] MEDS ORDERED: Al Hydrox/Mg Hydrox/Simet LIQ* 30 ML UDC PO PRN (15:18)
[2019-02-06] MEDS ORDERED: Ondansetron INJ* 2 MG/ML VIAL IV PRN (15:18)
[2019-02-06] MEDS: HYDROcodone/ACETAMIN 5-325 MG* 1 TAB PO PRN (15:21)
[2019-02-06] MEDS ORDERED: Al Hydrox/Mg Hydrox/Simet LIQ* 30 ML UDC PO ONE (15:22)
[2019-02-06] MEDS ORDERED: Perflutren Lipid Microsphere* 3 ML VIAL ONE (16:07)
--- NOTE | 2019-02-06 17:25 | ECHO ---
*[facility]* [place] [address] Fax #: [phone] Transthoracic Echocardiogram Patient: Cholo Rosenthal : 1955 Study Date: 02/06/2019 Age: 63 Gender: M HR: 67 bpm Height: 71 in /180.3 cm BSA: 2.31 m^2 Weight: 248.5 lb /112.9 kg BMI: 34.7 kg/m^2 *Paperboard Boxes Estimator: * Josselyn Morelos [facility] *Referring Physician: * Yumiko Michelle *Reading Physician: * Mel Gibson MD Indications: Chest Pain, unspecified. SOB. History: S/P AICD insert,angioplasty in the past,COPD,asthma,GERD, former smoker. Conclusions Summary: - Procedure narrative: Image quality was suboptimal. The study was technically limited due to COPD. - Left ventricle: The cavity size is moderately dilated. Systolic function is severely reduced. The estimated ejection fraction is 20-25%. Severe diffuse hypokinesis with regional variations, lateral wall moves best. The end-diastolic diameter (PLAX) is 5.9 cm. - Right ventricle: Systolic function is moderately to severely reduced. - Mitral valve: There is mild regurgitation, directed centrally. - Compared with prior echocardiogram of 08/10/10, ejection fraction has decreased from 30-35%, left ventricle dilatation previously 6.4 cm, right ventricle hypokinesis is new, mitral regurgitation is newly noted. Study data: Transthoracic echocardiogram. Procedure: Transthoracic echocardiography was performed. Image quality was suboptimal. The study was technically limited due to COPD. Intravenous Definity , 5 mlswas administered. Image enhancement administered by Complete 2D, spectral Doppler, and color flow Doppler. Location: Emergency department. Patient status: Observation. Rhythm: Normal sinus rhythm with PVC's. Findings Left ventricle: The cavity size is moderately dilated. Wall thickness is normal. Systolic function is severely reduced. The estimated ejection fraction is 20-25%. Severe diffuse hypokinesis with regional variations, lateral wall moves best. Doppler parameters are consistent with abnormal left ventricular relaxation (grade 1 diastolic dysfunction). Right ventricle: Poorly visualized. The cavity size is mildly dilated. Wall thickness is normal. Systolic function is moderately to severely reduced. Ventricular septum: Well visualized. Left atrium: Well visualized. The atrium is at the upper limits of normal in size. Right atrium: Not well visualized. Atrial septum: Well visualized. Mitral valve: Well visualized. The leaflets are normal thickness. No echocardiographic evidence for prolapse. There is no evidence of stenosis. There is mild regurgitation, directed centrally. Aortic valve: Not well visualized. The valve is trileaflet. The leaflets are normal thickness. There is no evidence of stenosis. There is no significant regurgitation. Tricuspid valve: Not well visualized. Pulmonic valve: Not well visualized. Aorta: The aorta is not visualized. Pericardium: There is no pericardial effusion. No evidence of pleural fluid accumulation. Pulmonary arteries: Not well visualized. Systemic veins: Not well visualized. Pulmonary veins: Visualization of the pulmonary venous anatomy is incomplete, but a significant abnormality is unlikely. Measurements Left ventricle Value Ref Aortic valve Value Ref ABRAHAM, LAX (H) 5.9 cm 4.2 - Andres diam, ED 2.2 cm ----- 5.8 Andres diam/bsa, ED 0.9 cm/m^2 ----- ESD, LAX (H) 5.5 cm 2.5 - Peak v, S 1.09 m/sec ----- 4.0 VTI, S 25.9 cm ----- FS, LAX (L) 7 % 25 43 Mean grad, S 3.0 mm Hg ----- PW, ED, LAX 0.8 cm 0.6 - Peak grad, S 5.0 mm Hg ----- 1.0 LVOT/AV, VTI ratio 0.53 ----- FS (L) 7 % 25 - 43 Mid-wall FS 5 % ------- Mitral valve Value Ref PW, ED 0.8 cm 0.6 - Peak E 0.82 m/sec ----- 1.0 Peak A 0.86 m/sec ----- PW/ID, ED 0.13 ------- Decel time 232 ms ----- E', lat andres, TDI (L) 8.7 cm/sec >=10.0 Peak grad, D 2.7 mm Hg --- -- E/e', lat andres, TDI 9 ------- Peak E/A ratio 1 ----- E', med andres, TDI (L) 4.1 cm/sec >=7.0 E/e', med andres, TDI 20 ------- Pulmonic valve Value Ref E', avg, TDI 6.4 cm/sec ------- Peak v, S 0.69 m/sec ----- E/e', avg, TDI 13 <=14 Peak grad, S 2.0 mm Hg --- -- LVOT Value Ref Tricuspid valve Value Ref Peak mervin, S 0.57 m/sec ------- TR peak v 2.31 m/sec <=2.8 VTI, S 13.7 cm ------- Peak RV-RA grad, S 21 mm Hg ----- Mean grad, S 1 mm Hg ------- Max TR mervin 2.31 m/sec ----- Ventricular septum Value Ref Aortic root Value Ref IVS, ED 0.8 cm 0.6 - Root diam 3.8 cm <4.4 1.0 Root max diam, ED 3.8 cm <4.4 Right ventricle Value Ref Ascending aorta Value Ref ABRAHAM, LAX 3.0 cm ------- AAo AP diam, S 3.3 cm ----- AAo AP diam/bsa, S 1.4 cm/m^2 ----- Left atrium Value Ref Vol/bsa, ES, 1-p 34 ml/m^2 12 - 37 A4C Right atrium Value Ref Estimated RAP 8 mm Hg ------- Legend: (L) and (H) brice values outside specified reference range. Prepared and electronically signed by Mel Gibson MD 02/06/2019 17:25
[2019-02-06] MEDS ORDERED: Allopurinol TAB* 300 MG PO SCH (18:00)
[2019-02-06] MEDS ORDERED: Fluticasone NASAL SPRAY 50MCG* 16 gm SPRAY BTL BOTH NARES SCH ×2 (18:00→21:00)
[2019-02-06] MEDS ORDERED: Ezetimibe TAB* 10 MG PO SCH (18:00)
[2019-02-06] MEDS: Morphine 4 MG/ML VIAL (1 ml) 4 MG/ML VIAL IV PRN ×2 (18:24→22:47)
[2019-02-06] MEDS: Metoclopramide TAB* 10 MG PO SCH (18:26)
[2019-02-06] MEDS: Pantoprazole TAB * 40 MG TAB PO SCH (18:26)
--- NOTE | 2019-02-06 20:33 | HP ---
CC: Dr. Crystal Bartlett; Dr. Osborn; Dr. Hays; Dr. Barbour; Ko Rob NP, [place] Office, [place] * HISTORY AND PHYSICAL: DATE OF ADMISSION: 02/06/19 PRIMARY CARE PHYSICIAN: Crystal Bartlett MD CHIEF COMPLAINT: Chest pain. HISTORY OF PRESENT ILLNESS: Cholo Rosenthal is a 63-year-old male with history of coronary artery disease who was hospitalized for angina symptoms in June 2018 at [facility] in [place], during which time he had a cardiac catheterization performed showing as per Ko Rob's note from September 2018 "no significant change compared to the hospital in [place] at the [facility] cardiac catheterization from 2018 and stable coronary artery disease." The patient was noted to be on appropriate medications and was noted paint that was "noncardiac " and medical management was recommended. Today, the patient presents complaining of chest pain that he developed when he was sitting on a toilet seat and having loose bowel movement. The patient stated that he had another loose bowel movement in the middle of the night. Right now, he complains of no abdominal pain, no shortness of breath, but complains of severe substernal chest pain, feels "like a little panda sitting on my chest." He rated it as 8/ 10. He already received 12 mg of morphine and nitroglycerin without much of an effect. He describes the pain as nonpleuritic and no changes with movement. He denies shortness of breath. The pain is similar to the pain that he had in June 2018, but more severe. So far, his cardiac workup including troponin and EKG that were unchanged and unremarkable and he is going to be placed on overnight observation with a diagnosis of chest pain. PAST MEDICAL HISTORY: 1. The patient reports history of "angina." He describes substernal chest pain when he walks and does activity, that resolves after he stops the activity or takes nitroglycerin. That had been ongoing for several years now and the last episode he had was in June 2018. 2. History of coronary artery disease, status post coronary artery bypass grafting and stenting, [facility] Last cardiac catheterization was noted to be during the hospital stay in May or June 2018. It showed no significant changes in his coronary artery disease. 3. History of ischemic cardiomyopathy with EF of approximately 40. 4. Hypertension. 5. Hyperlipidemia. 6. History of systolic CHF. 7. COPD. Recently, the patient was placed on oxygen at 2 L with exercise and 2 L at night. 8. History of gastroesophageal reflux disease. 9. Diverticulitis, status post partial colectomy due to that. 10. History of kidney stones. 11. History of pancreatitis related to Victoza usage. 12. History of hypoxemia with exercise and at night for which he uses oxygen. 13. History of bariatric surgery at [facility] in 2016. 14. Status post left eye trauma and prosthesis to the left eye. 15. History of bilateral foot surgeries in 2019 and most recent one was left ankle surgery in October [address] Barbour. The patient currently wears a splint in that area. 16. 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 17. History of coronary artery disease, status post bypass in 2003. 18. Pacemaker placement. 19. Pt was diabetic prior to his bariatric surgery, not his DM resolved MEDICATIONS: At home include: 1. Acetaminophen 1000 mg every 4 hours p.r.n. 2. Combivent Respimat 1 puff b.i.d. 3. Plavix 75 mg daily. 4. Colchicine 0.6 mg on a p.r.n. basis. 5. Vitamin B12 1000 mcg daily. 6. Hydrocodone/acetaminophen 5/325 mg 2 tablets every 4 hours p.r.n. 7. Pravachol 80 mg daily. 8. Albuterol inhaler on a p.r.n. basis. 9. Allopurinol 300 mg daily. 10. Aspirin 81 mg daily. 11. Vitamin D3 2000 units daily. 12. Zetia 10 mg daily. 13. Flonase nasal spray 50 mcg 2 sprays both nostrils q.p.m. 14. Furosemide 20 mg daily. 15. Gabapentin 300 mg b.i.d. 16. Metoclopramide 10 mg t.i.d. 17. Metoprolol succinate 25 mg b.i.d. 18. Nitroglycerin sublingual on a p.r.n. basis. 19. Protonix 40 mg b.i.d. 20. Potassium 10 mEq daily. 21. Ranexa 1000 mg b.i.d. 22. Tobradex eye drops 1 drop for left eye b.i.d. ALLERGIES: Include DEMEROL, IODINE, SHELLFISH, and VICTOZA. FAMILY HISTORY: Positive for diabetes and heart disease in both parents. SOCIAL HISTORY: The patient is . He has history of smoking approximately 40 pack years and quit in 2009. He denies any alcohol or drug use. His surrogate decision maker is his . REVIEW OF SYSTEMS: Please see history of present illness. The patient stated that he had 2 loose bowel movements in the past 24 hours, but denies any abdominal pain or nausea or vomiting. He had not taken his medications today and he has not eaten today yet. The chest pain he describes is substernal, pressure like, nonpleuritic as mentioned above. The patient has history of "chronic angina," which is exertional chest pain that occurs every few weeks. The last one was in June 2018. He was just recently placed by his primary care provider on oxygen at 2 L with exertion and 2 L at night. All of the remaining 12 systems were reviewed with the patient and the ones mentioned in the history of present illness were negative. PHYSICAL EXAMINATION GENERAL: The patient is a very pleasant 63-year-old male, who is in no acute distress, alert, awake, oriented x3. VITAL SIGNS: Blood pressure of 104/66, heart rate of 76 and regular, respiratory rate 16, oxygen saturation 98% on room air, temperature of 98.0. HEENT: Head: Atraumatic, normocephalic. Eyes: Left eye is prosthetic. The right eye is with round pupil and reactive to light. Oropharynx clear. Mucosa moist. NECK: Supple. No JVD. No bruits bilaterally. RESPIRATORY: Clear to auscultation bilaterally. CARDIOVASCULAR: Regular rate and rhythm. No murmur. ABDOMEN: Soft, nontender. Bowel sounds present in all 4 quadrants. EXTREMITIES: There is trace bilateral ankle edema. Pulses are +2 bilaterally. There is no clubbing, cyanosis. The patient wears an immobilizer in the left ankle area. The postoperative wounds are healed without evidence of any open areas on bilateral ankles. NEUROLOGIC: On neuro evaluation, speech clear. Cranial nerves II through XII grossly intact. Motor strength is 5/5 bilaterally. DIAGNOSTIC STUDIES/LABORATORY DATA: Laboratory data showed white blood cell count of 7.6, hemoglobin 13.8, hematocrit 40, and platelets 180. D-dimer was 265. Sodium was 138, potassium 3.7, chloride 103, carbon dioxide 50, BUN 11, creatinine is 1.15. Liver function tests were unremarkable. Random glucose level is 104. Troponin of 0. Portable chest x-ray, impression, "no evidence of acute intravascular disease." The patient's EKG showed sinus rhythm with PACs with heart rate of 81 with T waves throughout, 1 PVC, no evidence of acute changes. ASSESSMENT AND PLAN: 1. The patient's chest pain is similar to the pain in May 2018. At that point as per the patient's senior medical billing specialist's note, it was described as a noncardiac pain and at that point, cardiac catheterization at [facility] was noted to have no significant changes to the patient's baseline cardiac cath from the past. At this point, the patient's troponin is negative, his EKG is unremarkable and I suspect the patient once again may have noncardiac chest pain. With his cardiac catheterization done just within the past several months, I do not believe that a stress test or another cardiac catheterization will be of any value. If the patient's troponins continue to be negative, the patient is going to undergo transthoracic echocardiogram. His cardiac medications are going to be continued. I am concerned that the patient may have developed dependency to narcotics. It appears that he has been using [place] 2 tablets every 4 hours on as needed basis during the day. He required a fair amount of morphine and he still complains of significant pain. The patient is going to be placed on [place] and morphine and observed. 2. For the patient's congestive heart failure history, the patient is going to be placed on daily weights. His furosemide is going to be continued. He appears fairly euvolemic. 3. For chronic hypoxemic respiratory failure, his oxygen at 2 L is going to be continued. 4. The patient describes history of likely chronic obstructive pulmonary disease. He stated that his lungs were damaged by smoking and now he is using inhalers. I will continue the patient's inhalers as well as oxygen as mentioned above. 5. For DVT prophylaxis, the patient is going to be placed on heparin subcutaneously. 6. The patient's code status is full. His surrogate is his . Please note that the patient's D-dimer just came slightly positive at 265. Corrected to the patient's age, his D-dimer was actually within normal limits. TIME SPENT: Approximately 62 minutes was spent on admission of this patient, more than half of that time was spent [id number] with the patient during the interview and physical exam. [id number]/[facility] #: [id number] CELINA
[2019-02-06] MEDS: CMCS: Ranolazine (NF) 500 MG TAB PO SCH (21:03)
[2019-02-06] MEDS: Tobramycin/Dexameth OPTH.SUSP* 2.5 M L BTL LEFT EYE SCH (21:03)
[2019-02-06] MEDS: Gabapentin CAP(*) 300 MG PO SCH (21:04)
[2019-02-06] MEDS: Metoprolol Succinate XL TAB* 25 MG PO SCH (21:04)
[2019-02-06] MEDS: Heparin VIAL(*) 5000 UNITS/ML VIAL (FIVE THOUSAND) SUBCUT SCH (21:05)
[2019-02-06] MEDS ORDERED: Atorvastatin* 20 MG TAB PO SCH (21:30)
[2019-02-07] MEDS: Morphine 4 MG/ML VIAL (1 ml) 4 MG/ML VIAL IV PRN (03:22)
[2019-02-07] MEDS: Heparin VIAL(*) 5000 UNITS/ML VIAL (FIVE THOUSAND) SUBCUT SCH ×2 (05:53→14:02)
[2019-02-07] MEDS ORDERED: Tiotropium Brom/Olodaterol MDI INH SCH (06:00)
[2019-02-07 06:53] LABS: ABS Eosinophils 0.2 10^3/ul (0-0.6); ABS Lymphocytes 1.1 10^3/ul (1.0-4.8); ABS Monocytes 0.3 10^3/ul (0-0.8); ABS Neutrophils 3.2 10^3/ul (1.5-7.7); Eosinophil % 4.1 %; Hematocrit 38 % (42-52); Hemoglobin 13.1 g/dL (14.0-18.0); Lymphocyte % 22.8 %; Mean Corpuscular HGB Conc 34 g/dL (31-36); Mean Corpuscular Hemoglobin 30 pg (27-31); Mean Corpuscular Volume 88 fL (80-94); Platelet Count 157 10^3/uL (150-450); Red Blood Count 4.31 10^6 /uL (4.18-5.48); Red Cell Distribution Width 15 % (10-15); White Blood Count 4.9 10^3/uL (3.5-10.8)
[2019-02-07 07:10] LABS: Calcium 8.9 mg/dL (8.6-10.3); EGFR African American 82.3 (>60); EGFR Non-African American 68.1 (>60); HDL Cholesterol 32.7 mg/dL; Potassium 3.9 mmol/L (3.5-5.0)
[2019-02-07] MEDS: HYDROcodone/ACETAMIN 5-325 MG* 1 TAB PO PRN ×2 (07:45→11:55)
[2019-02-07] MEDS: Metoclopramide TAB* 10 MG PO SCH ×2 (07:45→11:55)
[2019-02-07] MEDS: Gabapentin CAP(*) 300 MG PO SCH (08:54)
[2019-02-07] MEDS: Metoprolol Succinate XL TAB* 25 MG PO SCH (08:55)
[2019-02-07] MEDS: Pantoprazole TAB * 40 MG TAB PO SCH (08:59)
[2019-02-07] MEDS: CMCS: Ranolazine (NF) 500 MG TAB PO SCH (08:59)
[2019-02-07] MEDS: Tobramycin/Dexameth OPTH.SUSP* 2.5 M L BTL LEFT EYE SCH (08:59)
[2019-02-07] MEDS ORDERED: Aspirin EC TAB* 81 MG TAB.EC PO SCH (09:00)
[2019-02-07] MEDS ORDERED: Potassium Chlor TAB* 10 MEQ TAB.ER PO SCH (09:00)
[2019-02-07] MEDS ORDERED: Cholecalciferol TAB* 1000 UNITS PO SCH (09:00)
[2019-02-07] MEDS ORDERED: Furosemide TAB* 20 MG PO SCH (09:00)
[2019-02-07] MEDS ORDERED: Clopidogrel TAB* 75 MG PO SCH (09:00)
--- NOTE | 2019-02-07 09:55 | CONSULT ---
<AdrianalphonseKenia - Last Filed: 02/07/19 10:15> Subjective Date of Service: 02/07/19 - chest pain Interval History: 63 year old male patient with a notable h/o CAD with CABG x3 with known occlusion of vein graft to OM and RCA with patent L/LAD. He also has a h/o ICM LVEF 20-25% with single chamber ICD in situ. He has been in his usual state of health and states the last episode of chest pain was prior to [facility] 05/2018. apparently yesterday morning after having a bowel movement he stood up and developed dizziness then started to develop sternal chest pain described as a pressure radiating down left arm. Pain was worse with inspiration. It was constant and ongoing until 0400 today. Not related to activity. No c/o syncope, palpitations, sensation of heart racing, edema or increased shortness of breath. Family History: Unchanged from Admission Social History: Findings - , former tobacco user quit in 2009, denies alcohol use or drug use. Past Medical History: Findings - CAD, HTN, HLD, SHF, COPD, GERD, Diverticulitis. Medications Active Medications: Hydrocodone Bitart/Acetaminophen ([place] 5-325 Tab*) 2 tab PO Q4H PRN PRN Reason: PAIN - MODERATE Last Admin: 02/07/19 07:45 Dose: 2 tab Al Hydrox/Mg Hydrox/Simethicone (Maalox Plus*) 30 ml PO Q6H PRN PRN Reason: INDIGESTION Albuterol (Ventolin 2.5 Mg/3 Ml Neb.Riccardo*) 2.5 mg INH QID PRN PRN Reason: SOB/WHEEZING Albuterol (Ventolin Hfa Inhaler*) 2 puff INH Q6HR PRN PRN Reason: SOB/WHEEZING Allopurinol (Zyloprim Tab*) 300 mg PO QPM [facility] Last Admin: 02/06/19 18:02 Dose: 300 mg Aspirin (Aspirin Ec Tab*) 81 mg PO QAM [facility] Last Admin: 02/07/19 08:54 Dose: 81 mg Atorvastatin Calcium (Lipitor*) 20 mg PO BEDTIME [facility] Last Admin: 02/06/19 21:30 Dose: 20 mg Cholecalciferol (Vitamin D Tab*) 2,000 units PO QAM [facility] Last Admin: 09/12/19 08:54 Dose: 2,000 units Clopidogrel Bisulfate (Plavix Tab*) 75 mg PO DAILY [facility] Last Admin: 02/07/19 08:54 Dose: 75 mg Ezetimibe (Zetia Tab*) 10 mg PO QPM [facility] Last Admin: 02/06/19 18:02 Dose: 10 mg Fluticasone Propionate (Flonase Nasal [place] 50mcg*) 2 spray BOTH NARES BEDTIME [facility] Last Admin: 02/06/19 21:02 Dose: 2 spray Furosemide (Lasix Tab*) 20 mg PO QAM [facility] Last Admin: 02/07/19 08:53 Dose: 20 mg Gabapentin (Neurontin Cap(*)) 300 mg PO BID [facility] Last Admin: 02/07/19 08:54 Dose: 300 mg Heparin Sodium (Porcine) (Heparin Vial(*)) 5,000 units SUBCUT Q8HR [facility] Last Admin: 02/07/19 05:53 Dose: 5,000 units Metoclopramide HCl (Reglan Tab*) 10 mg PO TID AC [facility] Last Admin: 02/07/19 07:45 Dose: 10 mg Metoprolol Succinate (Toprol Xl Tab*) 25 mg PO BID [facility] Last Admin: 02/07/19 08:55 Dose: 25 mg Nitroglycerin (Nitroglycerin Tab 0.6 Mg*) 0.6 mg SL Q5M PRN PRN Reason: ANGINA Pantoprazole Sodium (Protonix Tab*) 40 mg PO BID@0900,1700 [facility] Last Admin: 02/07/19 08:59 Dose: 40 mg Potassium Chloride (Klor Con Er Tab*) 10 meq PO QAM [facility] Last Admin: 02/07/19 08:54 Dose: 10 meq Ranolazine (Ranexa (Nf)) 1,000 mg PO BID [facility]; Protocol Last Admin: 02/07/19 08:59 Dose: 1,000 mg Tiotropium Streetman/Olodaterol (Stiolto Respimat Inh [place] (60 Puff)) 2 puff INH DAILY@0600 [facility] Last Admin: 02/07/19 05:54 Dose: 2 puff Tobramycin/Dexamethasone (Tobradex 0.3-0.1%*) 1 drop LEFT EYE BID [facility] Last Admin: 02/07/19 08:59 Dose: 1 drop Home Medications: Albuterol HFA INHALER* [Ventolin HFA Inhaler*] 2 puff INH Q6HR PRN 04/23/12 [ History Confirmed 02/06/19] Nitroglycerin TAB 0.4 MG* 0.6 mg SL Q5M PRN 04/10/13 [History Confirmed 02/06/19 ] Albuterol 2.5MG/3ML (0.083%)* [Ventolin 2.5 MG/3 ML NEB.RICCARDO*] 2.5 mg INH QID PRN 10/17/13 [History Confirmed 02/06/19] Cyanocobalamin (Vitamin B-12) [Vitamin B-12] 1,000 mcg PO QAM 07/13/14 [History Confirmed 02/06/19] Ezetimibe TAB* [Zetia TAB*] 10 mg PO QPM 12/08/14 [History Confirmed 02/06/19] Colchicine* [Colcrys*] 0.6 mg PO SEE INSTRUCTIONS 01/19/16 [History Confirmed ] Fluticasone NASAL SPRAY 50MCG* [Flonase NASAL SPRAY 50MCG*] 2 spray BOTH NARES QPM 03/25/16 [History Confirmed 02/06/19] Furosemide TAB* [Lasix TAB*] 20 mg PO QAM 09/20/16 [History Confirmed 02/06/19] Metoprolol Succinate XL TAB* [Toprol XL TAB*] 25 mg PO BID 09/20/16 [History Confirmed 02/06/19] Pantoprazole TAB * [Protonix TAB (NF)] 40 mg PO BID 09/20/16 [History Confirmed 02/06/19] Ranolazine (NF) [Ranexa (NF)] 1,000 mg PO BID 09/20/16 [History Confirmed ] Albuterol/Ipratropium RESP(NF) [Combivent Respimat (NF)] 1 puff INH BID PRN [History Confirmed 02/06/19] Cholecalciferol TAB* [Vitamin D TAB*] 2,000 units PO QAM 11/13/17 [History Confirmed 02/06/19] Pravastatin Sodium [Pravachol] 80 mg PO BEDTIME 11/13/17 [History Confirmed 04/16] Potassium 10 meq PO QAM 11/20/17 [History Confirmed 02/06/19] Aspirin [Aspir-Low] 81 mg PO QAM 03/26/18 [History Confirmed 02/06/19] Acetaminophen [Tylenol Extra Strength] 1,000 mg PO Q4HR PRN 07/16/18 [History Confirmed 02/06/19] Allopurinol [Zyloprim 300 MG TAB] 300 mg PO QPM 10/25/18 [History Confirmed 04/16] Hydrocodone/Acetaminophen [Hydrocodone/Acetaminophen 5-325 mg] 1 tab PO Q6H PRN 10/25/18 [History Confirmed 02/06/19] Clopidogrel TAB* [Plavix TAB*] 75 mg PO DAILY 02/06/19 [History Confirmed ] Gabapentin CAP(*) [Neurontin 300 CAP(*)] 300 mg PO BID 02/06/19 [History Confirmed 02/06/19] Metoclopramide TAB* [Reglan TAB*] 10 mg PO TID 02/06/19 [History Confirmed 02/06] Tobramycin/Dexameth OPTH.SUSP* [Tobradex 0.3-0.1%*] 1 applic LEFT EYE BID [History Confirmed 02/06/19] Review of Systems - Measurements Intake and Output: Intake and Output Last 24 Hours 02/05/19 02/06/19 02/07/19 02/08/19 06:59 06:59 06:59 06:59 Intake Total 360 Balance 360 Weight 241 lb 240 lb Intake: Oral 360 - Review of Systems Constitutional Symptoms: Positive: Weight Loss Cardiology: Positive: Chest Pain Review of Systems Statement: All other review of systems negative, unless stated above. Objective Vital Signs: Temp Pulse Resp BP Pulse Ox 97.3 F 68 16 112/76 99 02/07/19 03:16 02/07/19 08:43 02/07/19 08:54 02/07/19 09:02 02/07/19 08:43 Oxygen Devices in Use Now: Nasal Cannula Appearance: sitting on edge of bed, A+Ox3, cooperative with exam, NAD Eyes: No Scleral Icterus, PERRLA Ears/Nose/Mouth/Throat: NL Teeth, Lips, Gums Neck: Trachea Midline Respiratory: - - diminished throughout, slight inspiratory crackles noted in bases. Cardiovascular: No Edema, - - Diminished S1, S2, RRR no murmur gallop or rub. Extremities: No Edema Skin: No Rash or Ulcers Neurological: Alert and Oriented x 3 Lines/Tubes/Other Access: Clean, Dry and Intact Peripheral IV Laboratory Results: 02/07/19 06:34 02/07/19 06:34 INR (Anticoag Therapy) 1.06 (0.82-1.09) 02/06/19 12:46 Total Bilirubin 0.50 mg/dL (0.2-1.0) 02/06/19 12:46 AST 18 U/L (13-39) 02/06/19 12:46 ALT 12 U/L (7-52) 02/06/19 12:46 Alkaline Phosphatase 83 U/L (34-104) 02/06/19 12:46 Total Protein 6.5 g/dL (6.4-8.9) 02/06/19 12:46 Albumin 4.1 g/dL (3.2-5.2) 02/06/19 12:46 Globulin 2.4 g/dL (2-4) 02/06/19 12:46 Albumin/Globulin Ratio 1.7 (1-3) 02/06/19 12:46 Triglycerides 151 mg/dL 02/07/19 06:34 Cholesterol 133 mg/dL 02/07/19 06:34 LDL Cholesterol 70 mg/dL 02/07/19 06:34 HDL Cholesterol 32.7 mg/dL 02/07/19 06:34 02/06/19 02/06/19 02/06/19 12:46 15:34 18:35 Troponin I 0.00 0.00 0.00 Laboratory Results - last 24 hr 02/06/19 02/06/19 02/06/19 12:46 12:46 12:46 WBC 7.6 RBC 4.54 Hgb 13.8 L Hct 40 L MCV 89 MCH 30 MCHC 34 RDW 16 H Plt Count 180 MPV 8.2 Neut % (Auto) 68.2 Lymph % (Auto) 20.7 Thomas % (Auto) 7.4 Eos % (Auto) 3.1 Baso % (Auto) 0.6 Absolute Neuts (auto) 5.2 Absolute Lymphs (auto) 1.6 Absolute Monos (auto) 0.6 Absolute Eos (auto) 0.2 Absolute Basos (auto) 0.0 Absolute Nucleated RBC 0.0 Nucleated RBC % 0.0 INR (Anticoag Therapy) 1.06 D-Dimer, Quantitative 265 H Sodium 138 Potassium 3.7 Chloride 103 Carbon Dioxide 30 Anion Gap 5 BUN 11 Creatinine 1.15 Est GFR ( Amer) 78.2 Est GFR (Non-Af Amer) 64.7 BUN/Creatinine Ratio 9.6 Glucose 104 H Calcium 9.2 Total Bilirubin 0.50 AST 18 ALT 12 Alkaline Phosphatase 83 Troponin I 0.00 Total Protein 6.5 Albumin 4.1 Globulin 2.4 Albumin/Globulin Ratio 1.7 Triglycerides Cholesterol LDL Cholesterol HDL Cholesterol 02/06/19 02/06/19 02/07/19 15:34 18:35 06:34 WBC 4.9 RBC 4.31 Hgb 13.1 L Hct 38 L MCV 88 MCH 30 MCHC 34 RDW 15 Plt Count 157 MPV 8.0 Neut % (Auto) 65.6 Lymph % (Auto) 22.8 Thomas % (Auto) 6.6 Eos % (Auto) 4.1 Baso % (Auto) 0.9 Absolute Neuts (auto) 3.2 Absolute Lymphs (auto) 1.1 Absolute Monos (auto) 0.3 Absolute Eos (auto) 0.2 Absolute Basos (auto) 0.0 Absolute Nucleated RBC 0.0 Nucleated RBC % 0.0 INR (Anticoag Therapy) D-Dimer, Quantitative Sodium Potassium Chloride Carbon Dioxide Anion Gap BUN Creatinine Est GFR ( Amer) Est GFR (Non-Af Amer) BUN/Creatinine Ratio Glucose Calcium Total Bilirubin AST ALT Alkaline Phosphatase Troponin I 0.00 0.00 Total Protein Albumin Globulin Albumin/Globulin Ratio Triglycerides Cholesterol LDL Cholesterol HDL Cholesterol 02/07/19 06:34 WBC RBC Hgb Hct MCV MCH MCHC RDW Plt Count MPV Neut % (Auto) Lymph % (Auto) Thomas % (Auto) Eos % (Auto) Baso % (Auto) Absolute Neuts (auto) Absolute Lymphs (auto) Absolute Monos (auto) Absolute Eos (auto) Absolute Basos (auto) Absolute Nucleated RBC Nucleated RBC % INR (Anticoag Therapy) D-Dimer, Quantitative Sodium 137 Potassium 3.9 Chloride 104 Carbon Dioxide 27 Anion Gap 6 BUN 11 Creatinine 1.10 Est GFR ( Amer) 82.3 Est GFR (Non-Af Amer) 68.1 BUN/Creatinine Ratio 10.0 Glucose 102 H Calcium 8.9 Total Bilirubin AST ALT Alkaline Phosphatase Troponin I Total Protein Albumin Globulin Albumin/Globulin Ratio Triglycerides 151 Cholesterol 133 LDL Cholesterol 70 HDL Cholesterol 32.7 Diagnostic Imaging: *[facility]* [place] [address] Fax #: [phone] Transthoracic Echocardiogram Patient: Cholo Rosenthal : 1955 Study Date: 02/06/2019 Age: 63 Gender: M HR: 67 bpm Height: 71 in /180.3 cm BSA: 2.31 m^2 Weight: 248.5 lb /112.9 kg BMI: 34.7 kg/m^2 *Nuclear Supervising Operator: [facility] *Referring Physician: * Yumiko Michelle *Reading Physician: * Mel Gibson MD Indications: Chest Pain, unspecified. SOB. History: S/P AICD insert,angioplasty in the past,COPD,asthma,GERD, former smoker. Conclusions Summary: - Procedure narrative: Image quality was suboptimal. The study was technically limited due to COPD. - Left ventricle: The cavity size is moderately dilated. Systolic function is severely reduced. The estimated ejection fraction is 20-25%. Severe diffuse hypokinesis with regional variations, lateral wall moves best. The end-diastolic diameter (PLAX) is 5.9 cm. - Right ventricle: Systolic function is moderately to severely reduced. - Mitral valve: There is mild regurgitation, directed centrally. - Compared with prior echocardiogram of 08/10/10, ejection fraction has decreased from 30-35%, left ventricle dilatation previously 6.4 cm, right ventricle hypokinesis is new, mitral regurgitation is newly noted. This report is only to be considered final once signed by the Provider(s) as displayed in the "<Electronically Signed by >" field (s). Absence of a signature indicates the report is in a draft status and still needs to be finalized. In the event this document was created by someone other than the signing Provider, the individual initiating the document will be listed in the "Entered by:" or "Dictated by:" jasso. Single Chamber ICD Device Interrogation; SVT 01/11/2019 longest was 4:24 minutes max heart rate 164 BPM none since. EKG Data: ECG 02/07/2019; sinus rhythum rate 68 with flat TW noted diffusely. Telemetry reviewed; sinus rhythm rate 60-70's with occasional PVC no VT Assessment/Plan #1 Atypical chest pain; Patient had a 20 hour episode of constant chest pain with negative enzymes. Pain worse with inspiration and apparently was reproducible with palpation yesterday per patient. He has a known h/o CAD with CABG. Reviewed. [facility] from 05/2018. At that time he had known occlusion of spahenous vein graft to OM and RCA with Patent L/LAD. Patient has collateral flow to Lcx. Previous attempt to open SURGICAL SCHEDULER Lcx was unsuccessful per report. PTCA to diag was still patent. He has been treated for angina with toprol and Ranexa therapy. Currently pain free. LVEF 20-25% with diffuse hypokinesis. Will sign off case. No further cardiac testing needed. Device interrogated. He had PSVT in december but none since. I spojke with [facility] with PA who follows patient who states he will contact patient and bring him in to be seen within the next month given LVEF is now 20-25% previous remote study in 2010 LVEF was 30-35%. No ischemic ECG changes appreciated. #2 h/o CAD with prior CABG; Continue ASA 81/day, Plavix 75/day, toprol 25mg PO BID, Ranexa 1gram BID and Statin therapy. #3 ICM; LVEF 20-25%; primary cardiology [facility] unfortunately did not have a echo to compare to thus last assessment was in 2010 at that time 30-35%. I did review C from 05/2018 LV gram not performed. On toprol therapy. No ACEI, ARB, Entresto, Aldactone due to BP. Has ICD in situ. #4 Disposition pending course. Will d/w Dr. Rivas however I anticipate we will sign off case mildredlydia chest pain appears to be non cardiac. Patient to have VQ scan. Continue current medications. <Jessica Rivas - Last Filed: 02/07/19 14:34> Medications Active Medications: Hydrocodone Bitart/Acetaminophen ([place] 5-325 Tab*) 2 tab PO Q4H PRN PRN Reason: PAIN - MODERATE Last Admin: 02/07/19 11:55 Dose: 2 tab Al Hydrox/Mg Hydrox/Simethicone (Maalox Plus*) 30 ml PO Q6H PRN PRN Reason: INDIGESTION Albuterol (Ventolin 2.5 Mg/3 Ml Neb.Riccardo*) 2.5 mg INH QID PRN PRN Reason: SOB/WHEEZING Albuterol (Ventolin Hfa Inhaler*) 2 puff INH Q6HR PRN PRN Reason: SOB/WHEEZING Allopurinol (Zyloprim Tab*) 300 mg PO QPM [facility] Last Admin: 02/06/19 18:02 Dose: 300 mg Aspirin (Aspirin Ec Tab*) 81 mg PO QAM [facility] Last Admin: 02/07/19 08:54 Dose: 81 mg Atorvastatin Calcium (Lipitor*) 20 mg PO BEDTIME [facility] Last Admin: 02/06/19 21:30 Dose: 20 mg Cholecalciferol (Vitamin D Tab*) 2,000 units PO QAM [facility] Last Admin: 02/07/19 08:54 Dose: 2,000 units Clopidogrel Bisulfate (Plavix Tab*) 75 mg PO DAILY [facility] Last Admin: 02/07/19 08:54 Dose: 75 mg Ezetimibe (Zetia Tab*) 10 mg PO QPM [facility] Last Admin: 02/06/19 18:02 Dose: 10 mg Fluticasone Propionate (Flonase Nasal [place] 50mcg*) 2 spray BOTH NARES BEDTIME [facility] Last Admin: 02/06/19 21:02 Dose: 2 spray Furosemide (Lasix Tab*) 20 mg PO QAM [facility] Last Admin: 02/07/19 08:53 Dose: 20 mg Gabapentin (Neurontin Cap(*)) 300 mg PO BID [facility] Last Admin: 02/07/19 08:54 Dose: 300 mg Heparin Sodium (Porcine) (Heparin Vial(*)) 5,000 units SUBCUT Q8HR [facility] Last Admin: 02/07/19 14:02 Dose: 5,000 units Metoclopramide HCl (Reglan Tab*) 10 mg PO TID AC [facility] Last Admin: 02/07/19 11:55 Dose: 10 mg Metoprolol Succinate (Toprol Xl Tab*) 25 mg PO BID [facility] Last Admin: 02/07/19 08:55 Dose: 25 mg Nitroglycerin (Nitroglycerin Tab 0.6 Mg*) 0.6 mg SL Q5M PRN PRN Reason: ANGINA Pantoprazole Sodium (Protonix Tab*) 40 mg PO BID@0900,1700 [facility] Last Admin: 02/07/19 08:59 Dose: 40 mg Potassium Chloride (Klor Con Er Tab*) 10 meq PO QAM [facility] Last Admin: 02/07/19 08:54 Dose: 10 meq Ranolazine (Ranexa (Nf)) 1,000 mg PO BID [facility]; Protocol Last Admin: 02/07/19 08:59 Dose: 1,000 mg Tiotropium Streetman/Olodaterol (Stiolto Respimat Inh [place] (60 Puff)) 2 puff INH DAILY@0600 [facility] Last Admin: 02/07/19 05:54 Dose: 2 puff Tobramycin/Dexamethasone (Tobradex 0.3-0.1%*) 1 drop LEFT EYE BID [facility] Last Admin: 02/07/19 08:59 Dose: 1 drop Home Medications: Albuterol HFA INHALER* [Ventolin HFA Inhaler*] 2 puff INH Q6HR PRN 04/23/12 [ History Confirmed 02/06/19] Clopidogrel TAB* [Plavix TAB*] 75 mg PO QAM 04/23/12 [History Confirmed 02/06/19 ] Nitroglycerin TAB 0.4 MG* 0.6 mg SL Q5M PRN 04/10/13 [History Confirmed 02/06/19 ] Albuterol 2.5MG/3ML (0.083%)* [Ventolin 2.5 MG/3 ML NEB.RICCARDO*] 2.5 mg INH QID PRN 10/17/13 [History Confirmed 02/06/19] Cyanocobalamin (Vitamin B-12) [Vitamin B-12] 1,000 mcg PO QAM 07/13/14 [History Confirmed 02/06/19] Ezetimibe TAB* [Zetia TAB*] 10 mg PO QPM 12/08/14 [History Confirmed 02/06/19] Colchicine* [Colcrys*] 0.6 mg PO SEE INSTRUCTIONS 01/19/16 [History Confirmed ] Fluticasone NASAL SPRAY 50MCG* [Flonase NASAL SPRAY 50MCG*] 2 spray BOTH NARES QPM 03/25/16 [History Confirmed 02/06/19] Furosemide TAB* [Lasix TAB*] 20 mg PO QAM 09/20/16 [History Confirmed 02/06/19] Metoprolol Succinate XL TAB* [Toprol XL TAB*] 25 mg PO BID 09/20/16 [History Confirmed 02/06/19] Pantoprazole TAB * [Protonix TAB (NF)] 40 mg PO BID 09/20/16 [History Confirmed 02/06/19] Ranolazine (NF) [Ranexa (NF)] 1,000 mg PO BID 09/20/16 [History Confirmed ] Albuterol/Ipratropium RESP(NF) [Combivent Respimat (NF)] 1 puff INH BID PRN [History Confirmed 02/06/19] Cholecalciferol TAB* [Vitamin D TAB*] 2,000 units PO QAM 11/13/17 [History Confirmed 02/06/19] Pravastatin Sodium [Pravachol] 80 mg PO BEDTIME 11/13/17 [History Confirmed 04/16] Potassium 10 meq PO QAM 11/20/17 [History Confirmed 02/06/19] Aspirin [Aspir-Low] 81 mg PO QAM 03/26/18 [History Confirmed 02/06/19] Acetaminophen [Tylenol Extra Strength] 1,000 mg PO Q4HR PRN 07/16/18 [History Confirmed 02/06/19] Allopurinol [Zyloprim 300 MG TAB] 300 mg PO QPM 10/25/18 [History Confirmed 04/16] Hydrocodone/Acetaminophen [Hydrocodone/Acetaminophen 5-325 mg] 1 tab PO Q6H PRN 10/25/18 [History Confirmed 02/06/19] Clopidogrel TAB* [Plavix TAB*] 75 mg PO DAILY 02/06/19 [History Confirmed ] Gabapentin CAP(*) [Neurontin 300 CAP(*)] 300 mg PO BID 02/06/19 [History Confirmed 02/06/19] Metoclopramide TAB* [Reglan TAB*] 10 mg PO TID 02/06/19 [History Confirmed 02/06] Tobramycin/Dexameth OPTH.SUSP* [Tobradex 0.3-0.1%*] 1 applic LEFT EYE BID [History Confirmed 02/06/19] Review of Systems - Measurements Intake and Output: Intake and Output Last 24 Hours 02/05/19 02/06/19 02/07/19 02/08/19 06:59 06:59 06:59 06:59 Intake Total 360 960 Output Total 0 Balance 360 960 Weight 241 lb 240 lb Intake: Oral 360 960 Output: Urine 0 - Review of Systems Review of Systems Statement: All other review of systems negative, unless stated above. Objective Vital Signs: Temp Pulse Resp BP Pulse Ox 98.9 F 64 18 101/62 98 02/07/19 11:20 02/07/19 11:20 02/07/19 14:01 02/07/19 11:20 02/07/19 11:20 Laboratory Results: 02/07/19 06:34 02/07/19 06:34 INR (Anticoag Therapy) 1.06 (0.82-1.09) 02/06/19 12:46 Total Bilirubin 0.50 mg/dL (0.2-1.0) 02/06/19 12:46 AST 18 U/L (13-39) 02/06/19 12:46 ALT 12 U/L (7-52) 02/06/19 12:46 Alkaline Phosphatase 83 U/L (34-104) 02/06/19 12:46 Total Protein 6.5 g/dL (6.4-8.9) 02/06/19 12:46 Albumin 4.1 g/dL (3.2-5.2) 02/06/19 12:46 Globulin 2.4 g/dL (2-4) 02/06/19 12:46 Albumin/Globulin Ratio 1.7 (1-3) 02/06/19 12:46 Triglycerides 151 mg/dL 02/07/19 06:34 Cholesterol 133 mg/dL 02/07/19 06:34 LDL Cholesterol 70 mg/dL 02/07/19 06:34 HDL Cholesterol 32.7 mg/dL 02/07/19 06:34 02/06/19 02/06/19 02/06/19 12:46 15:34 18:35 Troponin I 0.00 0.00 0.00 Assessment/Plan 02.07.2019 2:31 PM:pt seen and examined. Pt's clinical case and previous cardiac eval and plan of care d/w pt and [employer] A Eddie. Known CAD, CABG, CMP, ICD and comorbidities. for now he is CP free. will review if available recent echo from [facility] for LV EF comparison given discrepancy of LV EF echo yesterday and Lv EF ?? cath at [facility]'s 2019 50%.
--- NOTE | 2019-02-07 11:44 | PN ---
Subjective Date of Service: 02/07/19 Interval History: pt continues to c/o substernal CP at 01/05, "only IV morphine helps it" Denies SOB, but at baseline get SOB with exertion and was just started on 02 to be used when walking Objective Active Medications: Hydrocodone Bitart/Acetaminophen (Dyke 5-325 Tab*) 2 tab PO Q4H PRN PRN Reason: PAIN - MODERATE Last Admin: 02/07/19 07:45 Dose: 2 tab Al Hydrox/Mg Hydrox/Simethicone (Maalox Plus*) 30 ml PO Q6H PRN PRN Reason: INDIGESTION Albuterol (Ventolin 2.5 Mg/3 Ml Neb.Isaura*) 2.5 mg INH QID PRN PRN Reason: SOB/WHEEZING Albuterol (Ventolin Hfa Inhaler*) 2 puff INH Q6HR PRN PRN Reason: SOB/WHEEZING Allopurinol (Zyloprim Tab*) 300 mg PO QPM [facility] Last Admin: 02/06/19 18:02 Dose: 300 mg Aspirin (Aspirin Ec Tab*) 81 mg PO QAM [facility] Last Admin: 02/07/19 08:54 Dose: 81 mg Atorvastatin Calcium (Lipitor*) 20 mg PO BEDTIME [facility] Last Admin: 02/06/19 21:30 Dose: 20 mg Cholecalciferol (Vitamin D Tab*) 2,000 units PO QAM [facility] Last Admin: 02/07/19 08:54 Dose: 2,000 units Clopidogrel Bisulfate (Plavix Tab*) 75 mg PO DAILY [facility] Last Admin: 02/07/19 08:54 Dose: 75 mg Ezetimibe (Zetia Tab*) 10 mg PO QPM [facility] Last Admin: 02/06/19 18:02 Dose: 10 mg Fluticasone Propionate (Flonase Nasal United 50mcg*) 2 spray BOTH NARES BEDTIME [facility] Last Admin: 02/06/19 21:02 Dose: 2 spray Furosemide (Lasix Tab*) 20 mg PO QAM [facility] Last Admin: 02/07/19 08:53 Dose: 20 mg Gabapentin (Neurontin Cap(*)) 300 mg PO BID [facility] Last Admin: 02/07/19 08:54 Dose: 300 mg Heparin Sodium (Porcine) (Heparin Vial(*)) 5,000 units SUBCUT Q8HR [facility] Last Admin: 02/07/19 05:53 Dose: 5,000 units Metoclopramide HCl (Reglan Tab*) 10 mg PO TID AC [facility] Last Admin: 02/07/19 07:45 Dose: 10 mg Metoprolol Succinate (Toprol Xl Tab*) 25 mg PO BID [facility] Last Admin: 02/07/19 08:55 Dose: 25 mg Nitroglycerin (Nitroglycerin Tab 0.6 Mg*) 0.6 mg SL Q5M PRN PRN Reason: ANGINA Pantoprazole Sodium (Protonix Tab*) 40 mg PO BID@0900,1700 [facility] Last Admin: 02/07/19 08:59 Dose: 40 mg Potassium Chloride (Klor Con Er Tab*) 10 meq PO QAM [facility] Last Admin: 02/07/19 08:54 Dose: 10 meq Ranolazine (Ranexa (Nf)) 1,000 mg PO BID [facility]; Protocol Last Admin: 02/07/19 08:59 Dose: 1,000 mg Tiotropium [place]/Olodaterol (Stiolto Respimat Inh United (60 Puff)) 2 puff INH DAILY@0600 [facility] Last Admin: 02/07/19 05:54 Dose: 2 puff Tobramycin/Dexamethasone (Tobradex 0.3-0.1%*) 1 drop LEFT EYE BID [facility] Last Admin: 02/07/19 08:59 Dose: 1 drop Vital Signs - 8 hr 02/07/19 02/07/19 02/07/19 04:37 07:45 08:00 Pulse Rate Respiratory 16 16 Rate Blood Pressure (mmHg) O2 Sat by Pulse 99 Oximetry 02/07/19 02/07/19 02/07/19 08:43 08:54 09:02 Pulse Rate 68 Respiratory 20 16 Rate Blood Pressure 97/61 112/76 (mmHg) O2 Sat by Pulse 99 Oximetry 02/07/19 02/07/19 10:19 11:05 Pulse Rate Respiratory 18 16 Rate Blood Pressure (mmHg) O2 Sat by Pulse Oximetry Oxygen Devices in Use Now: Nasal Cannula Appearance: 63 yo m in nAD, aAOx3 Eyes: No Scleral Icterus, PERRLA Ears/Nose/Mouth/Throat: NL Teeth, Lips, Gums, Mucous Membranes Moist Neck: NL Appearance and Movements; NL JVP, Trachea Midline Respiratory: Symmetrical Chest Expansion and Respiratory Effort, Clear to Auscultation Cardiovascular: NL Sounds; No Murmurs; No JVD, RRR Abdominal: NL Sounds; No Tenderness; No Distention Lymphatic: No Cervical Adenopathy Extremities: No Clubbing, Cyanosis, - - trace pedal edema b/l Skin: No Rash or Ulcers, No Nodules or Sclerosis Neurological: Alert and Oriented x 3, NL Muscle Strength and Tone Result Diagrams: 02/07/19 06:34 02/07/19 06:34 Assess/Plan/Problems-Billing Assessment: 63 yo m with h/o ischemic cardiomyopathy, ICD/pacer, CABG, COPD on 02 - Patient Problems (1) Chest pain Comment: The patient has ruled out for AK with teop of 0x3 EKG shows no acute changes. suspect the pain is noncardiac and pt had been using a lot of Dyke as outpatient for his b/l ankle surgeried this year. we did not pursue stress test as the suspicion is it would be abnormal given his history. But if pt's EF of 25% is new he may need a stress tomorrow V/Q neg (2) CAD (coronary artery disease) Comment: cont ASA, metoprolol, statin and Zetia, plavix (3) COPD (chronic obstructive pulmonary disease) Comment: No signs of exacerbation. Continue 02 (4) Ischemic cardiomyopathy Comment: EF of 25%, but no recent Echo noted apart for EF40 in 2016 Awaiting med records from [place] in 2018, cardiology following. If drop in EF new, will need either another cath or stress test (5) Non-insulin dependent type 2 diabetes mellitus Comment: not on DM meds, will check HbA1C (6) DVT prophylaxis Comment: HSQ Status and Disposition: OBV
[2019-02-07 12:22] VITALS: BP 101/62
--- NOTE | 2019-02-08 | DS ---
CC: Dr. Rivas, Cardiology, [facility]; Dr. Wall; Dr. Bartlett * DISCHARGE SUMMARY: DATE OF ADMISSION: 02/06/19 DATE OF DISCHARGE: 02/07/19 PRIMARY CARE PROVIDER: Dr. Crystal Bartlett from [facility]. SERGING MACHINE OPERATOR AUTOMATIC: Dr. Arnie Wall from [facility] [place]. DISCHARGE DIAGNOSIS: Chest pain, likely noncardiac in the patient with history of ischemic cardiomyopathy and documented ejection fraction during his hospital stay of 25%. SECONDARY DIAGNOSES: 1. History of coronary artery disease, status post bypass and multiple stents in the past, last stent in 2018, last cardiac catheterization at [facility] in June 2018 which showed proximal ostial lesion of 25% stenosis, proximal circ to mid circ lesion of 100% stenosis, and proximal LAD lesion of 50 % stenosis and LAD to mid LAD lesion of 99% stenosis. There was also noted to have collaterals and unchanged comparing with anatomy reported from [facility] from August of 2017 in medical treatment. 2. History of ischemic cardiomyopathy with ejection fraction ranging between 25 reported yesterday to 37 reported in 2017. 3. Hypertension. 4. Hyperlipidemia. 5. Chronic systolic congestive heart failure. 6. History of chronic obstructive pulmonary disease, recently started on oxygen. 7. History of gastroesophageal reflux disease. 8. History of partial colectomy for diverticulitis. 9. History of pancreatitis related to Victoza. 10. Bariatric surgery in 2016. 11. Left eye trauma. 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 12. History of bilateral foot surgeries in 2019 involving the bilateral ankles by Dr. Barbour. 13. Pacemaker/ICD placement. MEDICATIONS AT DISCHARGE: Medications at discharge are unchanged from admission and include: 1. TobraDex 1 application to left eye b.i.d. 2. Plavix 75 mg daily. 3. Ranexa 1000 mg b.i.d. 4. Reglan 10 mg 3 times a day p.r.n. 5. Pravachol 80 mg at bedtime. 6. Potassium chloride 10 mEq q.a.m. 7. Protonix 40 mg b.i.d. 8. Nitroglycerin on a p.r.n. basis. 9. Toprol-XL 25 mg b.i.d. 10. Gabapentin 300 mg b.i.d. 11. Hydrocodone with acetaminophen 1 tablet every 4 hours p.r.n. 12. Furosemide 20 mg daily. 13. Flonase nasal spray 2 sprays both nostrils q.p.m. 14. Zetia 10 mg daily. 15. Vitamin B12 of 1000 mcg q.a.m. p.o. 16. Colchicine 0.6 mg as needed p.r.n. 17. Vitamin D3 of 2000 units daily. 18. Aspirin 81 mg daily. 19. Combivent Respimat 1 puff b.i.d. p.r.n. 20. Albuterol inhaler on a p.r.n. basis. 21. Stiolto Respimat 2 puffs inhalation daily. LABORATORY DATA: Performed during the hospital stay included: Troponin throughout the patient's hospital stay was 0 x3. The patient's triglycerides were 151, cholesterol total of 133, LDL of 70, and HDL of 32. V/Q scan documented on 02/07/19 showed "normal V/Q scan." CONSULTATIONS DURING THE HOSPITAL STAY: Included: Dr. Rivas from cardiology. The patient's transthoracic echocardiogram reported on 02/06/19 showed left ventricle moderately dilated, systolic function severely reduced with estimated ejection fraction of 20 to 25% with severe diffuse hypokinesis with regional variations with lateral wall moving best. Compared with prior echocardiogram in 2010 ejection fraction was decreased from 30 to 35 previously. The right ventricle hypokinesis is new, mitral regurgitation is newly noted and mild. HOSPITAL COURSE: Cholo Rosenthal is a 63-year-old male with a history of significant coronary artery disease and known ischemic cardiomyopathy, who was admitted to the hospital with chest pain. He stated that the chest pain is external and feels like "an elephant sitting on my chest." It was similar to presentation to [facility] in May 2018, during which time he had a cardiac catheterization which showed significant coronary artery disease, but unchanged since 2018. His last EF documented via stress test was in 2017 and was noted to be 36 [facility] The patient also stated that he has chronic pain, approximately 6/10, it is his baseline, but when he came into the hospital, it was at 8/10. Morphine was the only medication that eased the pain and nitroglycerin did not work. The patient was placed on overnight observation. His troponins were unremarkable and at 0, and his EKG was unchanged and showed no acute ischemic changes. The patient continues to complain of severe pain, but by the time of discharge, his pain was back to his baseline at 6/10. The pain was not pleuritic and not worse with movement. He also had a V/Q scan performed which showed no abnormalities. I asked Dr. Rivas from the Cardiology Service to see the patient in consultation. We obtained the medical records from [facility] cardiac catheterization obtained in May 2018 as well as the [facility] medical records. The only thing that is different today from the patient's hospital stay is that his EF is down to 20% to 25% and prior to that, it was close to 35% or 37%. At this point, it is recommended for the patient to follow up with his primary patient clerical assistant in regards of that. Nevertheless, Dr. Rivas felt that the pain was likely noncardiac and the patient is okay to be discharged home to follow up with his patient clerical assistant. For physical exam at discharge, please see daily progress notes. The patient's medications at discharge are unchanged from admission. Please note that this is a short summary of the patient's hospital stay. Please refer to further medical records for details. DISPOSITION ON DISCHARGE: To home. CONDITION ON DISCHARGE: Stable. [id number]/CPS #: [id number]
== END 2019-02-07 16:00 | disposition home or self-care (01) ==
LOC: ED 12:26 → MEDTELE 16:29
PROVIDERS: ADMIT Internal Medicine; ATTEND Internal Medicine
DX: R07.89 Other chest pain (principal); I25.119 Atherosclerotic heart disease of native coronary artery with unspecified angina pectoris; I25.5 Ischemic cardiomyopathy; I50.22 Chronic systolic (congestive) heart failure; I11.0 Hypertensive heart disease with heart failure; E78.5 Hyperlipidemia, unspecified; J44.9 Chronic obstructive pulmonary disease, unspecified; K21.9 Gastro-esophageal reflux disease without esophagitis; K57.92 Diverticulitis of intestine, part unspecified, without perforation or abscess without bleeding; K85.90 Acute pancreatitis without necrosis or infection, unspecified; Z98.84 Bariatric surgery status; Z95.0 Presence of cardiac pacemaker; Z79.899 Other long term (current) drug therapy; Z79.82 Long term (current) use of aspirin
CPT/HCPCS: 36415; 71045; 71046; 78582; 80048; 80053; 80061; 83036; 84484; 85025; 85379; 85610; 93005; 93306; 96372; 96374; 96375; 96376; 99285; A9270-GY; A9540; A9558; G0378; J1644; J2270; J2405; J3535

== ENCOUNTER 2019-02-25 10:32 | Emergency (ER) | payer OTHER ==
--- OUTSIDE RECORDS SUMMARY | 2019-02-25 11:03 | XMS REPORT | Continuity of Care Document ---
:1955 External Reference #:[id number] Author Name Kinjal Caban Care Team Providers Name Role Phone Patient's Choice Primary Care Physician Unavailable Payers Date Identification Numbers Payment Provider Subscriber Effective: Policy Number: [id number] [facility] Medicare Solutions Marietta Rosenthal 2018 PayID: [id number] [address] [address] [place] [address] Expires: 2018 Policy Number: [id number] Medicaid Marietta Rosenthal Group Name: 1 1 [address] PayID: [id number] [place] [address] Effective: 2018 Policy Number: [id number] Va/ Non Va Care Marietta Rosenthal Group Name: Va/ Non Va Care [address] [address] PayID: [id number] [place] [address] Expires: 2018 Policy Number: [id number] Va/ Non Va Care Marietta Rosenthal Group Name: Va/ Non Va Care [address] [address] PayID: [id number] [place] [address] Effective: 2018 Policy Number: [id number] Medicaid Marietta Rosenthal Expires: 2018 Group Name: 1 1 [address] PayID: [id number] [place] [address] Expires: 2018 Policy Number: [id number] Va/ Non Va Care Marietta Rosenthal Group Name: Va/ Non Va Care [address] [address] PayID: [id number] [place] [address] Family History Date Family Member(s) Observation Comments General Diabetes General Heart Disease General Hypertension General Stroke General Cancer General Rheumatoid Arthritis Social History Type Date Description Comments Sex Unknown Lives With Occupation Disabled Occupation Retired ETOH Use Denies alcohol use Tobacco Use Start: Unknown End: Patient is a former smoker Unknown Smoking Status Reviewed: 01/03/19 Patient is a former smoker Exercise Type/Frequency Exercises sporadically Allergies, Adverse Reactions, Alerts Active Allergies Reaction Severity Comments Date Demerol 03/23/2016 Iodine 03/23/2016 Shellfish-derived Products 03/23/2016 Victoza 12/14/2016 Medications Active Medications SIG Qnty Indications Ordering Date Provider Keflex 1 by mouth three 30caps M96.0 Topher Barbour, 01/03/2019 500mg Capsules times a day M.D. Oxycodone HCL 1 tabs by mouth 30tabs Topher Barbour, 10/29/2018 5mg Tablets every 8 hours as M.D. needed [place] 1 by mouth every 60tabs Topher Barbour, 08/06/2018 5-325mg Tablets 6 hours as M.D. needed Tramadol HCL 1 tablet by 42tabs Topher Barbour, 08/02/2018 50mg Tablets mouth every 6 M.D. hours as needed pain MS Contin 1 tab by mouth 10tabs Topher Barbour, 04/04/2018 15mg Tablets ER twice a day M.D. Pravastatin Sodium 1 tablet once 90tabs Ry Rooney 05/17/2012 80mg daily at bedtime Julius Hays, Tablets FACC, FASNC Potassium Unknown Vitamin D 1 by mouth every Unknown (Cholecalciferol) day 1000Unit Capsules Ezetimibe take one tablet Unknown 10mg Tablets daily, use generic Doxycycline Hyclate as directed Unknown B-12 Unknown Metoclopramide HCL Chemo Emerson, 5mg MD Tablets Colchicine take one tablet Unknown 0.6mg Tablets by mouth twice a day as needed for pain from gout attack Allopurinol 1 by mouth every Unknown 100mg Tablets day Prochlorperazine Maleate as needed Unknown 10mg Tablets Naproxen 1 tablet with Unknown 500mg Tablets food by mouth twice a day Lasix 1 by mouth every Unknown 20mg Tablets day Albuterol Sulfate four times a day Unknown (5mg/ML) or as needed 0.5% Nebulizer Plavix 1 by mouth every Unknown 75mg Tablets day Ranexa take 2 tablet by Unknown 500mg Tablets ER 12HR mouth daily Nitroglycerin prn Unknown 0.6mg Tablets Sub Nasal [place] 2 sprays each Unknown nostril daily Protonix 1 by mouth twice Unknown 40mg Tablets DR daily Aspirin Adult Low take one tablet Unknown Strength by mouth daily. 81mg Tablets DR Metoprolol Succinate ER 1 by mouth twice Unknown 50mg Tablets ER 24HR History Medications Medrol take as directed 21units Topher Barbour, 09/27/2018 - 4mg TBPK on pack M.D. 10/22/2018 Oxycodone HCL 1 tabs by mouth 30tabs Topher Barbour, 04/02/2018 - 5mg every 4-6 hours M.D. Unknown Tablets as needed Oxycodone HCL 1-2 tabs by 40tabs M19.172 Topher Barbour, 11/20/2017 - 5mg mouth every 4-6 M.D. 12/25/2017 Tablets hours as needed [place] 1 by mouth every 30tabs M19.172 Topher [...] 240ml Denisse B. 03/23/2016 - Pain Eckenrode, BURR GRINDER Unknown 10-300mg/15ML Elixir Hydrocodone 10ml po q4h prn 240ml Denisse B. 03/23/2016 - Bitartrate/Acetamin pain Eckenrode, BURR GRINDER Unknown ophen 7.5-325mg/15ML Solution Carvedilol 1 by mouth twice 60tabs Ry Hays, 01/15/2013 - 25mg a day M.D., FACC, FASNC Unknown Tablets Losartan Potassium 1 by mouth every 30tabs Ry Hays, 10/05/2012 - day M.D., FACC, FASNC Unknown 25mg Tablets Ranexa 1 tab by mouth 60tabs Ry Hays, 05/01/2012 - 1000mg twice a day M.D., FACC, FASNC Unknown Tablets ER 12HR Furosemide 1 tab by mouth 90tabs Ry Hays, 03/09/2012 - 20mg every morning M.D., FACC, FASNC Unknown Tablets Plavix 1 by mouth every [...] 351-400 30 units; >400 call md Gabapentin 1 Tab tid Unknown - 300mg Unknown Capsules Medications Administered in Office Medication SIG Qnty Indications Ordering Provider Date Triamcinolone (Kenalog) JOSE Germain 09/12/2018 Injection Vital Signs Date Vital Result Comment 01/03/2019 7:54am Height 71 inches 5'11" Weight 240.00 lb BP Systolic 128 mmHg BP Diastolic 86 mmHg Respiratory Rate 18 /min Body Temperature 96.4 F Pain Level 10 BMI (Body Mass Index) 33.5 kg/m2 12/06/2018 7:58am Height 71 inches 5'11" Weight 240.00 lb Heart Rate 94 /min Body Temperature 96.3 F O2 % BldC Oximetry 97 % BMI (Body Mass Index) 33.5 kg/m2 11/08/2018 8:46am Height 71 inches 5'11" Heart Rate 88 /min BP Systolic 122 mmHg BP Diastolic 90 mmHg Respiratory Rate 18 /min Body Temperature 98.0 F Pain Level 6 10/23/2018 8:07am Height 71 inches 5'11" Weight 244.00 lb BP Systolic 132 mmHg BP Diastolic 71 mmHg Respiratory Rate 16 /min Pain Level 8 BMI (Body Mass Index) 34.0 kg/m2 10/16/2018 8:11am Height 71 inches 5'11" Heart Rate 72 /min BP Systolic 132 mmHg BP Diastolic 72 mmHg Respiratory Rate 18 /min Body Temperature 97.5 F Pain Level 8 10/04/2018 8:06am Height 71 inches 5'11" Heart [...] Test Result H/L Range Note Laboratory test [facility] Surgical SEE RESULT 1 finding [address] [place] [address] [phone] Laboratory test [facility] Point of Care 110 mg/dL High 70-100 2 finding [address] [place] [address] [phone] Laboratory test [facility] Semiten SEE RESULTS 3 , 4 finding [address] BELO <[place] [address] NOTE> [phone] Xray [facility] US Soft Tissue <pending> [address] [place] [address] [phone] Laboratory test [facility] Surgical SEE RESULT 5 finding [address] [place] [address] [phone] Laboratory test [facility] Surgical SEE RESULT 6 finding [address] [place] [address] [phone] Wound [facility] Wound/Misc SEE RESULT 7 Culture/Sensi [address] [place] [address] Stain [phone] Laboratory test [facility] Point of Care 100 mg/dL Normal 70-100 8 finding [address] [place] [address] [phone] Laboratory test [facility] Anaerobic SEE RESULT 9 finding [address] [place] [address] [phone] Laboratory test [facility] Cancellous SEE RESULTS 10, 11 finding [address] Chips 5cc BELO <[place] [address] NOTE> [phone] DBX 2.5 SEE RESULTS BELO <SEE NOTE> 12 Laboratory test 11/20/2017 [facility] Point of Care 103 mg/dL High 70-100 [address] [place] [address] [phone] Wound 11/20/2017 [facility] Wound/Misc SEE RESULT 14 Culture/Sensi [address] [place] [address] Stain [phone] Laboratory test 06/26/2017 [facility] Point of Care 124 mg/dL High 70-100 [address] Glucose [place], [place] [id number] [phone] Bariatric Panel 10/04/2016 [facility] Ferritin 242.3 Normal 24 -336 16 Post Op [address] ng/[place] [address] [phone] Vitamin B12 761 pg/mL Normal 180-914 17 Folic Acid (Folate) 16.39 ng/mL Normal >3.99 18 Vitamin D Total 25(Oh) 25.1 ng/mL Low 30-50 19 Vitamin B1 (Whole Blood) 126 nmol/L Normal 70-180 20 Vitamin E Level 9.0 mg/L Normal 5.5 - 17.0 21 Comp Metabolic 10/04/2016 [facility] Sodium 141 mmol/L Normal 133-[address] [place] [address] [phone] Potassium 4.2 mmol/L Normal 3.5-5.0 Chloride 104 mmol/L Normal 101-111 Co2 Carbon Dioxide 29 mmol/L Normal 22-32 Anion Gap 8 mmol/L Normal 2-11 Glucose 100 mg/dL Normal 70-100 Creatinine 1.08 mg/dL Normal 0.67-1.17 Calcium 9.3 mg/dL Normal 8.6-10.3 Albumin 4.1 g/dL Normal 3.2-5.2 Alkaline Phosphatase 67 U/L Normal 34-104 Alt 11 U/L Normal 7-52 Ast 13 U/L Normal 13-39 Egfr Non- 70.0 Normal >60 Egfr 90.0 Normal >60 22 Blood Urea Nitrogen 12 mg/dL Normal 6-24 BUN/Creatinine Ratio 11.1 Normal 8-20 Total Protein 6.7 g/dL Normal 6.4-8.9 Globulin 2.6 g/dL Normal 2-4 Albumin/Globulin Ratio 1.6 Normal 1-3 Total Bilirubin 0.90 mg/dL Normal 0.2-1.0 CBC Auto 10/04/2016 [facility] White Blood 9.1 10^3/uL Normal 3.5-10.[address] [place] [address] [phone] Red Blood Count 5.04 10^6/uL Normal 4.0-5.4 Hemoglobin 14.4 g/dL Normal 14.0-18.0 Hematocrit 43 % Normal 42-52 Mean Corpuscular Volume 86 fL Normal 80-94 Mean Corpuscular Hemoglobin 29 pg Normal 27-31 Mean Corpuscular HGB Conc 33 g/dL Normal 31-36 Red Cell Distribution Width 14 % Normal 10.5-15 Platelet Count 187 10^3/uL Normal 150-450 Mean Platelet Volume 8 um3 Normal 7.4-10.4 Abs Neutrophils 6.9 10^3/uL Normal 1.5-7.7 Abs Lymphocytes 1.5 10^3/uL Normal 1.0-4.8 Abs Monocytes 0.5 10^3/uL Normal 0-0.8 Abs Eosinophils 0.2 10^3/uL Normal 0-0.6 Abs Basophils 0.1 10^3/uL Normal 0-0.2 Abs Nucleated RBC 0.01 10^3/uL Normal Granulocyte % 75.5 % Normal 38-83 Lymphocyte % 16.1 % Low 25-47 Monocyte % 5.6 % Normal 1-9 Eosinophil % 2.2 % Normal 0-6 Basophil % 0.6 % Normal 0-2 Nucleated Red Blood Cells % 0.1 Normal Iron & Iron Binding 10/04/2016 [facility] Iron 71 g/dL Normal 50-[address] [place] [address] [phone] Unsaturated Iron Binding 136 g/dL Normal Total Iron Binding Capacity 207 g/dL Low 250-450 % Iron Saturation 34 % Normal 15-55 Laboratory test 09/22/2016 [facility] Surgical SEE RESULT [address] [place] [address] Order [phone] CBC Auto Diff 08/02/2016 [facility] White Blood 6.7 10^3/uL Normal 3.5-[address] Count 0.8 [place], [place] [address] [phone] Red Blood Count 5.12 10^6/uL Normal 4.0-5.4 Hemoglobin 14.8 g/dL Normal 14.0-18.0 Hematocrit 44 % Normal 42-52 Mean Corpuscular Volume 85 fL Normal 80-94 Mean Corpuscular Hemoglobin 29 pg Normal 27-31 Mean Corpuscular HGB Conc 34 g/dL Normal 31-36 Red Cell Distribution Width 14 % Normal 10.5-15 Platelet Count 171 10^3/uL Normal 150-450 Mean Platelet Volume 8 um3 Normal 7.4-10.4 Abs Neutrophils 4.4 10^3/uL Normal 1.5-7.7 Abs Lymphocytes 1.6 10^3/uL Normal 1.0-4.8 Abs Monocytes 0.5 10^3/uL Normal 0-0.8 Abs Eosinophils 0.2 10^3/uL Normal 0-0.6 Abs Basophils 0 10^3/uL Normal 0-0.2 Abs Nucleated RBC 0.01 10^3/uL Normal Granulocyte % 65.7 % Normal 38-83 Lymphocyte % 23.2 % Low 25-47 Monocyte % 7.6 % Normal 1-9 Eosinophil % 2.8 % Normal 0-6 Basophil % 0.7 % Normal 0-2 Nucleated Red Blood Cells % 0.2 Normal Comp Metabolic 08/02/2016 [facility] Sodium 138 mmol/L Normal 133-[address] [place] [address] [phone] Potassium 4.2 mmol/L Normal 3.5-5.0 Chloride 101 mmol/L Normal 101-111 Co2 Carbon Dioxide 32 mmol/L Normal 22-32 Anion Gap 5 mmol/L Normal 2-11 Glucose 97 mg/dL Normal 70-100 Blood Urea Nitrogen 12 mg/dL Normal 6-24 Creatinine 1.19 mg/dL High 0.67-1.17 BUN/Creatinine Ratio 10.1 Normal 8-20 Calcium 9.4 mg/dL Normal 8.6-10.3 Total Protein 6.8 g/dL Normal 6.4-8.9 Albumin 4.2 g/dL Normal 3.2-5.2 Globulin 2.6 g/dL Normal 2-4 Albumin/Globulin Ratio 1.6 Normal 1-3 Total Bilirubin 1.00 mg/dL Normal 0.2-1.0 Alkaline Phosphatase 66 U/L Normal 34-104 Alt 13 U/L Normal 7-52 Ast 14 U/L Normal 13-39 Egfr Non- 62.6 Normal >60 Egfr 80.5 Normal >60 24 Laboratory test 04/05/2016 [facility] Surgical SEE RESULT [address] [place] [address] [phone] CBC No Diff 03/23/2016 [facility] White Blood 8.6 10^3/uL Normal 3.5-[address] Count 0.8 [place] [address] [phone] Red Blood Count 5.21 10^6/uL Normal 4.0-5.4 Hemoglobin 15.0 g/dL Normal 14.0-18.0 Hematocrit 44 % Normal 42-52 Mean Corpuscular Volume 85 fL Normal 80-94 Mean Corpuscular Hemoglobin 29 pg Normal 27-31 Mean Corpuscular HGB Conc 34 g/dL Normal 31-36 Red Cell Distribution Width 15 % Normal 10.5-15 Platelet Count 196 10^3/uL Normal 150-450 Mean Platelet Volume 8 um3 Normal 7.4-10.4 Basic Metabolic 03/23/2016 [facility] Sodium 136 mmol/L Normal 133-[address] [place] [address] [phone] Potassium 4.1 mmol/L Normal 3.5-5.0 Chloride 98 mmol/L Low 101-111 Co2 Carbon Dioxide 30 mmol/L Normal 22-32 Anion Gap 8 mmol/L Normal 2-11 Glucose 109 mg/dL High 70-100 Blood Urea Nitrogen 22 mg/dL Normal 6-24 Creatinine 1.41 mg/dL High 0.67-1.17 BUN/Creatinine Ratio 15.6 Normal 8-20 Calcium 10.0 mg/dL Normal 8.6-10.3 Egfr Non- 51.6 Normal >60 Egfr 66.4 Normal >60 26 Basic Metabolic Panel 03/09/2012 [facility] Sodium 139 mmol/L 133-[address] [place] [address] [phone] Potassium 3.8 mmol/L 3.5-5.0 Chloride 103 mmol/L 101-111 Co2 Carbon Dioxide 28.0 mmol/L 22-32 Anion Gap 8.0 mmol/L 2-11 Glucose 79 mg/dL 70-100 Blood Urea Nitrogen 12 mg/dL 6-24 Creatinine 1.20 mg/dL 0.50-1.40 BUN/Creatinine Ratio 10.0 8-20 Calcium 9.0 mg/dL 8.1-9.9 Egfr Non- 63.1 >60 Egfr 81.1 >60 27 1 SEE RESULT BELOW Name: MARIETTA ROSENTHAL : [address]: Topher Barbour MD Acct: [id number] Unit: [id number] AGE: 63 Location: OR Re10/29/18 SEX: M Status: TALIA GOMES SPEC: [id number] DANNY: 10/29/18- SUBM DR: Topher Barbour MD REQ: [id number] RECD: 10/29/182679 STATUS: SOUT _ ORDERED: LEVEL 3 FINAL [...] a small amount of chalky larsen-white speckling. Freight Inspector sections, one cassette. Signed by and Reported on: Derrick Farrell MD 09/14 1805 END OF REPORT DEPARTMENT OF PATHOLOGY, [address] [place] [address] Derrick Farrell M.D. Director [facility] # [id number] 2 Warp Yarn Sorter: [id number] PERONEAL TENDINITIS, RIGHT LEG 4 SEE RESULTS BELOW [id number] [facility] 10/29/18 1030 5 SEE RESULT BELOW Name: MARIETTA ROSENTHAL : [address]: Topher Barbour MD Acct: [id number] Unit: [id number] AGE: 63 Location: OR Re07/23/18 SEX: M Status: DEP [facility] SPEC: [id number] DANNY: 07/23/18- [facility] DR: Topher Barbour MD REQ: [id number] RECD: 07/23/18 STATUS: SOUT _ ORDERED: LEVEL [...] 1324 END OF REPORT DEPARTMENT OF PATHOLOGY, [address] [place] [address] Derrick Farrell M.D. Director [facility] # [id number] 6 SEE RESULT BELOW Name: MARIETTA ROSENTHAL : [address]: Topher Barbour MD Acct: [id number] Unit: [id number] AGE: 62 Location: OR Re04/02/18 SEX: M Status: REG [facility] SPEC: [id number] DANNY: 04/02/18- [facility] DR: Topher Barbour MD REQ: [id number] RECD: 04/02/18 STATUS: SOUT _ ORDERED: LEVEL [...] The following inscription is identified: [id number] [employer] [id number]. Received separately in the same container are nine niar to blue metallic threaded to partially threaded screws (ogm-Cxdcz-lcyhfp, orhwv-ffkmvd-wwiscd) ranging from 3.1 x 0.4 cm to [...] 0928 END OF REPORT DEPARTMENT OF PATHOLOGY, [address] [place] [address] Derrick Farrell M.D. Director [facility] # [id number] 7 SEE RESULT BELOW Name: MARIETTA ROSENTHAL : [address]: Topher Barbour MD Acct: [id number] Unit: [id number] AGE: 62 Location: OR Re04/02/18 SEX: M Status: REG [facility] SPEC: [id number] DANNY: 04/02/181131 [facility] DR: Topher Barbour MD REQ: [id number] RECD: 04/02/18 STATUS: ИВАН OSULLIVAN DR: Crystal [...] END OF REPORT DEPARTMENT OF PATHOLOGY, [address] [place] [address] Derrick Farrell M.D. Director [facility] # [id number] 8 Warp Yarn Sorter: [id number] 9 SEE RESULT BELOW Name: MARIETTA ROSENTHAL : [address]: Topher Barbour MD Acct: [id number] Unit: [id number] AGE: 62 Location: OR Re11/20/17 SEX: M Status: DEP SDC SPEC: [id number] DANNY: 11/20/17-[address] [facility] [address]: Topher Barbour MD REQ: [id number] RECD: 11/20/17-1213 STATUS: ИВАН OSULLIVAN DR: Crystal Bartlett MD _ SOURCE: WOUND SPDESC:ANKLE LEFT ORDERED: Anaerobic Cult, Culture Stain QUERIES: Specimen Description LEFT ANKLE FUSION REVISION Procedure Result Reported Site Anaerobic Culture Final 06/29/18- 1024 ML No Growth Day 4 Wound/Misc Gram Stain Final 11/20/17- 1249 ML 2+ Neutrophils No Organisms Seen Wound/Misc Culture Final 11/24/17- 1024 ML No Growth Day 4 * ML - Main Lab . END OF REPORT DEPARTMENT OF PATHOLOGY, [address] [place] [address] Derrick Farrell M.D. Director [facility] # [id number] 10 LEFT ANKLE FUSION REVISION, TIBIAL BONE GRAFT 11 SEE RESULTS BELOW [id number] CANC CHIPS 5CC [facility] 11/20/176 [id number] CANC CHIPS 5CC TRANSFUSED 11/20/176 12 SEE RESULTS BELOW [id number] DBX 2.5 TRANSFUSED 11/20/176 13 Warp Yarn Sorter: [id number] 14 SEE RESULT BELOW Name: MARIETTA ROSENTHAL : [address]: Topher Barbour MD Acct: [id number] Unit: [id number] AGE: 62 Location: OR Re11/20/17 SEX: M Status: REG SDC SPEC: [id number] DANNY: 11/20/17-[address] [facility] [address]: Topher Barbour MD REQ: [id number] RECD: 11/20/17 STATUS: RES [facility] DR: Crystal Bartlett MD _ SOURCE: WOUND SPDESC:ANKLE LEFT ORDERED: Anaerobic Cult, Culture Stain QUERIES: Specimen Description LEFT ANKLE FUSION REVISION Procedure Result Reported Site Anaerobic Culture PENDING Wound/Misc Gram Stain Final 11/20/17- 1249 ML 2+ Neutrophils No Organisms Seen Wound/Misc Culture PENDING * ML - Main Lab . END OF REPORT DEPARTMENT OF PATHOLOGY, [address] [place] [address] Derrick Farrell M.D. Director [facility] # [id number] 15 Warp Yarn Sorter: [id number] FASTING 17 Normal Range 180 to 914 Indeterminate Range 145 to 180 Deficient Range <145 18 FASTING 19 FASTING 20 ADDITIONAL INFORMATION This test was developed and its performance characteristics determined by [facility] in a manner consistent with CLIA requirements. This test has not been cleared or approved by the U.S. Food and Drug Administration. Test Performed by: [facility] [employer] [address] [place] [id number] 21 ADDITIONAL INFORMATION This test was developed and its performance characteristics determined by [facility] in a manner consistent with CLIA requirements. This test has not been cleared or approved by the [place].S. Food and Drug Administration. Test Performed by: [facility] - [address] [address] 22 Because ethnic data is not always [...] 5 Kidney failure <15 (or dialysis) 23 SEE RESULT BELOW Name: MARIETTA ROSENTHAL : [address]: Chris Mccarty MD Acct: [id number] Unit: [id number] AGE: 61 Location: ENDO Re09/22/16 SEX: M Status: DEP REF SPEC: [id number] DANNY: 09/22/[address]: Chris Mccarty MD REQ: [id number] RECD: 09/22/16 STATUS: KENDRICK OSULLIVAN DR: Earl Jose MD _ ORDERED: H [facility], LEVEL 4 Addendum: An immunohistochemical stain for [...] Fisher MD 1209 END OF REPORT * ML = Testing performed at Main Lab DEPARTMENT OF PATHOLOGY, [address] [place] [address] Derrick Farrell M.D. Director [facility] # [id number] 24 Because ethnic data is not always readily [...] 15-29 5 Kidney failure <15 (or dialysis) 25 SEE RESULT BELOW Name: MARIETTA ROSENTHAL : [address]: Earl Jose MD Acct: [id number] Unit: [id number] AGE: 60 Location: [place] [address] Re04/05/16 SEX: M Status: ADM IN SPEC: [id number] DANNY: 04/05/16- [facility] DR: Earl Jose MD REQ: [id number] RECD: 04/05/16 STATUS: SOUT _ ORDERED: LEVEL V FINAL [...] larsen-red sessile polyps and normal rugal folds. Freight Inspector sections, one cassette. Signed (signature on file) Derrick Farrell MD 1441 END OF REPORT * ML = Testing performed at Main Lab DEPARTMENT OF PATHOLOGY, [address] [place] [address] Derrick Farrell M.D. Director [facility] # [id number] 26 Because ethnic data is not always readily [...] 15-29 5 Kidney failure <15 (or dialysis) 27 Because ethnic data is not always readily [...] (or dialysis) Procedures Date Code Description Status 11/08/2018 88507 Short Leg Cast Completed 10/29/2018 77264 Repair Flexor Tendon Leg Secondary W/Wo Graft Completed 10/29/2018 50588 Repair Flexor Tendon Leg Secondary W/Wo Graft Completed 10/29/2018 78337 Repair Flexor Tendon Leg Secondary W/Wo Graft Completed 10/29/2018 03642 Repair Flexor Tendon Leg Secondary W/Wo Graft Completed 09/12/2018 51257 Inject/Drain Joint/Bursa Major W/O US Completed 07/23/2018 48258 Removal Implant Deep Wire,Screw Nail,Ronny Or Plate Completed 07/23/201816854 Removal Implant Deep Wire,Screw Nail,Ronny Or Plate Completed 04/26/2018 29959 Short Leg Cast Completed 04/10/2018 24564 Short Leg Cast Completed 04/02/2018 87343 Arthrodesis Ankle,open Completed 04/02/2018 63845 Arthrodesis Ankle,open Completed 04/02/2018 Bone Graft Any Donor Area Minr Or SM (Eg Dowel Or Button) Completed 04/02/2018 Bone Graft Any Donor Area Minr Or SM (Eg Dowel Or Button) Completed 12/12/2017 92167 Short Leg Cast Completed 11/20/2017 52477 Arthrodesis Ankle,open Completed 11/20/2017 77596 Arthrodesis Ankle,open Completed 08/29/2017 31106 Walking Cast Completed 07/18/2017 01472 Short Leg Cast Completed 07/04/2017 45642 Short Leg Cast Completed 06/26/2017 29957 Arthrodesis Ankle,open Completed 06/26/2017 76229 Arthrodesis Ankle,open Completed 04/05/2016 36512 Laparoscopy Surg Gerard Restrict Procedure Longitudinal Completed Gastrectomy 04/05/2016 99700 Laparoscopy Surg Gerard Restrict Procedure Longitudinal Completed Gastrectomy 10/13/2015 33950 EKG, Interpretation Only Completed 07/14/2014 55051 EKG, Interpretation Only Completed 04/11/2013 97044 EKG, Interpretation Only Completed 01/01/2013 95960 Icd eval w/iterative adjment single lead Icd Completed 10/04/2012 10012 EKG Tracing & Interpretation Completed 10/01/2012 52494 ECHO Transthoracic, Real-Time 2D With Doppler And Color Completed Flow 08/30/2012 25509 Interrogation Implant Cardiovasc Monitor System Incl Completed Analysis Int 08/30/2012 42680 Interrogation Implant Cardiovasc Monitor System Incl Completed Analysis Int 08/30/2012 75725 Icd eval w/iterative adjment single lead Icd Completed 08/30/2012 85032 EKG Tracing & Interpretation Completed 05/14/2012 34651 EKG, Interpretation Only Completed 05/13/2012 04250 EKG, Interpretation Only Completed 05/01/2012 25352 Icd eval w/iterative adjment single lead Icd Completed Encounters Type Date Location Provider Dx Diagnosis Office Visit 10/16/2018 Orthopedic Services Tpoher Barbour M76.71 Peroneal 8:45a Of [facility] [place] tendinitis, right leg 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 arthrodesis Office Visit 09/12/2018 Orthopedic [facility] Mario, M25.571 Pain in right ankle 1:30p Services Of Julius and joints of right C.M.A. 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 ankle and foot Office Visit 05/15/2018 Orthopedic Topher M19.072 Primary 8:45a Services [facility] Barbour osteoarthritis, left C.M.A. 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 ankle and foot Office Visit 09/12/2017 Orthopedic Top[facility] M19.172 Post-traumatic 9:45a [facility] osteoarthritis, left C.M.A. ankle and foot Office Visit 12/14/2016 Orthopedic Topher M19.172 Post-traumatic 2:45p [facility] osteoarthritis, left C.M.A. ankle and foot Office Visit 10/03/2016 Surgical Earl Jose, R11.2 Nausea with 9:15a [facility] vomiting, District Wildlife Manager unspecified R10.11 Right upper quadrant pain Z98.84 Bariatric surgery status Office Visit 08/03/2016 1:30p Surgical Earl Jose, K25.9 Gastric ulcer, [facility] District Wildlife Manager [facility] unsp as acute or chronic, w/o hemor or perf R11.2 Nausea with vomiting, unspecified Z98.84 Bariatric surgery status Office Visit 08/01/2016 11:00a Surgical Earl Jose, R11.2 Nausea with [facility], FACS vomiting, unspecified R10.11 Right upper quadrant pain Z98.84 Bariatric surgery status Office Visit 04/08/2016 [facility] E11.8 Type 2 diabetes 12:41p Assoc,pc Jhonny, BURR GRINDER mellitus with Hospitalists unspecified complications E78.5 Hyperlipidemia, unspecified I25.10 Athscl heart disease of [place] coronary artery w/o ang pctrs I10 Essential (primary) hypertension Office Visit 04/07/2016 [facility] E11.8 Type 2 diabetes 12:40p Assoc,pc Jhonny, BURR GRINDER mellitus with Hospitalists unspecified complications E78.5 Hyperlipidemia, unspecified I10 Essential (primary) hypertension I25.10 Athscl heart disease of [place] coronary artery w/o ang pctrs Office Visit 04/06/2016 12:40p [facility] Joellen I25.10 Athscl heart Assoc,pc Letty, JOHANN disease of Hospitalists [place] coronary artery w/o ang pctrs E11.8 Type 2 diabetes mellitus with unspecified complications E78.5 Hyperlipidemia, unspecified I10 Essential (primary) hypertension Office Visit 04/05/2016 12:38p [facility] Desmond I25.10 Athscl heart Assoc,pc Al, N.P. 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 pain Hospitalists E11.9 Type 2 diabetes mellitus without complications I25.10 Athscl heart disease of [place] coronary artery w/o ang pctrs I10 Essential (primary) hypertension Office Visit 10/13/2015 1:34p [facility] Hayley Lemus, R07.89 Other chest Assoc,pc D.O. pain Hospitalists E11.9 Type 2 diabetes mellitus without complications I25.10 Athscl heart disease of [place] coronary artery w/o ang pctrs I10 Essential (primary) hypertension Office Visit 07/14/2014 9:36a [facility] Shandra Cortes 786.50 Pain Chest Assoc,pc Jamie Vera Unspec Hospitalists 414.00 Coronary Atherosclerosis Unspec Type Vessel [place]/Graft 414.8 Ischemic Heart Disease Chronic Other Spec Forms Office Visit 07/13/2014 9:36a [facility] Tru Cordero 786.50 Pain Chest Assoc,yanira MALIK M.D. Unspec Hospitalists 414.00 Coronary Atherosclerosis Unspec Type Vessel [place]/Graft 414.8 Ischemic Heart Disease Chronic Other Spec Forms Office Visit 04/13/2013 6:14p [facility] Linda 786.50 Pain Chest Assoc,yanira Farris M.D. Unspec Hospitalists 414.01 Coronary Atherosclerosis [place] 401.9 Hypertension Unspec 250.00 Diabetes Mellitus W/O Compl Type II Or Unspec Controlled Office Visit 04/13/2013 2:32p [facility] Edwin Mazariegos 414.9 Ischemic Heart Of [place] Osborn M.D. Disease Chronic Unspec 786.50 Pain Chest Unspec Office Visit 04/12/2013 11:51a [facility] Mel Gibson 786.50 Pain Chest Of [place] Unspec 414.9 Ischemic Heart Disease Chronic Unspec Office Visit 04/12/2013 6:14p [facility] Linda 786.50 Pain Chest Assoc,yanira Farris M.D. Unspec Hospitalists 414.01 Coronary Atherosclerosis [place] 401.9 Hypertension Unspec 250.00 Diabetes Mellitus W/O Compl Type II Or Unspec Controlled Office Visit 04/10/2013 6:12p [facility] Linda 786.50 Pain Chest Assoc,yanira Farris M.D. Unspec Hospitalists 414.01 Coronary Atherosclerosis [place] 401.9 Hypertension Unspec 250.00 Diabetes Mellitus W/O Compl Type II Or Unspec Controlled Office Visit 12/19/2012 10:28a [facility] Linda 577.0 Pancreatitis Acute Assoc,yanira Farris M.D. Hospitalists 789.06 Pain Abdominal Epigastric 414.00 Coronary Atherosclerosis Unspec Type Vessel [place] Office Visit 12/18/2012 [facility] Salvatore 577.0 Pancreatitis Acute 10:28a Assoc,yanira Christy M.D. Hospitalists 789.06 Pain Abdominal Epigastric 414.00 Coronary Atherosclerosis Unspec Type Vessel [place]raft Office Visit 12/17/2012 [facility] Salvatore 577.0 Pancreatitis Acute 10:28a yanira Harmon M.D. Hospitalists 789.06 Pain Abdominal Epigastric 414.00 Coronary Atherosclerosis Unspec Type Vessel [place]raft Office Visit 12/16/2012 [facility] Salvatore 577.0 Pancreatitis Acute 10:27a yanira Harmon M.D. Hospitalists 789.06 Pain Abdominal Epigastric 414.00 Coronary Atherosclerosis Unspec Type Vessel [place]raft Office Visit 12/15/2012 [facility] Salvatore 577.0 Pancreatitis Acute 10:27a yanira Harmon M.D. Hospitalists 789.06 Pain Abdominal Epigastric 414.00 Coronary Atherosclerosis Unspec Type Vessel [place]raft Office Visit 10/04/2012 10:00a [facility] Ry Rooney 414.9 Ischemic Heart Of [place] Hays M.D., Disease Chronic FACC, FASNC Unspec Office Visit 05/16/2012 7:21p [facility] Linda 786.51 Pain Precordial Asscoco,yanira Farris M.D. Hospitalists Office Visit 05/15/2012 7:21p [facility] Linda 786.51 Pain Precordial Asscoco,yanira Farris M.D. Hospitalists Office Visit 05/14/2012 7:20p [facility] Linda 786.51 Pain Precordial Assyanira sepulveda M.D. Hospitalists Office Visit 05/14/2012 2:23p [facility] Edwin Mazariegos 414.9 Ischemic Heart Of [place] Osborn M.D. Disease Chronic Unspec 786.50 Pain Chest Unspec Office Visit 05/13/2012 [facility] Linda 411.1 Coronary Syndrome 7:20p yanira Harmon M.D. Intermediate Hospitalists Office Visit 05/13/2012 [facility] Tomi Cohn 414.01 Coronary 11:39a [facility] Atherosclerosis [place] 401.1 Hypertension Benign 786.50 Pain Chest Unspec 250.00 Diabetes Mellitus W/O Compl Type II Or Unspec Controlled Office Visit 10/11/2009 [facility] Tree Ann, 562.11 Diverticulitis 12:30a yanira Harmon M.D. Colon W/O Hospitalists Hemorrhage 600.00 Hypertrophy Prostate W/O Urinary Obstruction & Other Luts Office Visit 10/10/2009 [facility], 562.11 Diverticulitis 1:00a yanira Harmon M.D. Colon W/O Hospitalists Hemorrhage 414.9 Ischemic Heart Disease Chronic Unspec Office Visit 10/09/2009 12:30a [facility] Seth, 414.9 Ischemic Heart yanira Harmon M.D. Disease Chronic Hospitalists Unspec 562.11 Diverticulitis Colon W/O Hemorrhage Office Visit 10/08/2009 12:15a [facility] Annika Brown, 276.51 Dehydration Assyanira sepulveda M.D. Hospitalists 562.11 Diverticulitis Colon W/O Hemorrhage 789.00 Pain Abdominal Unspec Site 593.89 Kidney & Ureter Disorders Other 600.00 Hypertrophy Prostate W/O Urinary Obstruction & Other Luts Office Visit 08/21/2009 [facility] 562.11 Diverticulitis Colon 1:00a yanira Harmon M.D. W/O Hemorrhage Hospitalists 789.00 Pain Abdominal Unspec Site Office 08/20/2009 [facility] 562.11 Diverticulitis Visit 12:30a yanira Harmon M.D. Colon W/O Hospitalists Hemorrhage Office 08/19/2009 [facility] 562.11 Diverticulitis Visit 12:45a yanira Harmon M.D. Colon W/O Hospitalists Hemorrhage 787.03 Vomiting Alone Office 08/18/2009 [facility] 562.11 Diverticulitis Visit 3:45a yanira Harmon M.D. Colon W/O Hospitalists Hemorrhage Plan of Treatment Future Appointment(s):01/23/2019 3:15 pm - Topher Barbour M.D. at [facility] AT Pmzggtji25/08/2019 - Topher Barbour M.D.M96.0 Pseudarthrosis after fusion or arthrodesisNew Medication:Keflex 500 mg - 1 by mouth three times a dayFollow up:3 weeks
[2019-02-25 13:47] VITALS: BP 123/62
[2019-02-25] MEDS ORDERED: traMADol TAB* 50 MG PO ONE (13:58)
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
== END 2019-02-25 14:15 | disposition home or self-care (01) ==
LOC: ED 10:32
DX: M71.21 Synovial cyst of popliteal space [Baker], right knee (principal); M25.571 Pain in right ankle and joints of right foot; I11.0 Hypertensive heart disease with heart failure; I50.9 Heart failure, unspecified; J44.9 Chronic obstructive pulmonary disease, unspecified; K21.9 Gastro-esophageal reflux disease without esophagitis; Z79.01 Long term (current) use of anticoagulants; Z95.1 Presence of aortocoronary bypass graft; Z95.5 Presence of coronary angioplasty implant and graft; Z95.810 Presence of automatic (implantable) cardiac defibrillator; Z98.1 Arthrodesis status; Z88.8 Allergy status to other drugs, medicaments and biological substances; Z88.3 Allergy status to other anti-infective agents; Z88.5 Allergy status to narcotic agent; Z91.013 Allergy to seafood; Z87.891 Personal history of nicotine dependence
CPT/HCPCS: 99282; A9270-GY

== ENCOUNTER → 2019-04-15 07:52 | Day surgery (SDC) | payer OTHER ==
[~2019-04-15 07:52] MED LIST changes: +Buffered Lidocaine 1% SYRIN* 1 ML/SYRINGE INTRADERM ONE; +Bupivacaine 0.5%* 50 ML MDV VIAL ONE; +Etomidate* 2 MG/ML 10 ML VIAL ONE; -HYDROcodone/ACETAMIN 5-325 MG* 1 TAB PO ONE; -HYDROmorphone INJ1* 1 MG/ML SYRINGE IM ONE; +Lactated Ringers 1000 ML Bag* 1,000 ML IV SCH; +Midazolam* 1 MG/ML 2 ML VIAL (2 MG) ONE; +Naloxone* 0.4 MG/ML 1 ML VIAL IV PRN; +Ondansetron INJ* 2 MG/ML VIAL IV PRN; +Sodium Citrate/Citric Acid* 15 ML UDC ONE; +Sodium Citrate/Citric Acid* 15 ML UDC PO ONE; +ceFAZolin 2 GM in NS PREMIX(*) 2 GM/100 ML BAG IVPB ONE; +fentaNYL* 50 MCG/ML 2 ML VIAL (100 MCG VIAL) ONE; +oxyCODONE TAB* 5 MG TAB ONE
[2019-04-15] MEDS: fentaNYL* 50 MCG/ML 2 ML VIAL (100 MCG VIAL) IV PRN ×5 (11:07→11:28)
[2019-04-15 12:38] VITALS: BP 108/74
--- NOTE | 2019-04-15 16:00 | OP ---
DATE OF OPERATION: 04/15/19 - [facility] DATE OF : 59 SURGEON: Topher Barbour MD DAY CARE WORKER: David Leblanc PA-C PRE-OP DIAGNOSIS: Right posterior tibial tendinopathy. POST-OP DIAGNOSIS: Right posterior tibial tendinopathy. OPERATIVE PROCEDURE: Repair of right posterior tibial tendon with FDL transfer. DESCRIPTION OF PROCEDURE: The patient was taken to the operating room where we opened up longitudinally along the course of the posterior tibial tendon below the malleolus and up to the level of the malleolus. We opened up the sheath of the tendon to obtain clear viscous fluid and some degenerative changes in the bottom 3 to 4 cm. There was a nodularity in this area that was debrided with a 15-blade basically leaving a scarified plantar medial aspect of the tendon. We isolated the FDL tendon just deep to the posterior tibial tracing this down to the knot of Venkatesh. We then sewed the FDL, FHL distally together with a 0 Vicryl suture, transected the FDL tendon as a graft. This was then rerouted plantar to dorsal through the navicular using a 5 mm drill hole anchoring the tendon with a suture through the bone and then sewn over the dorsal periosteum. We then sewed the FDL tendon [id number] into the posterior tibial with a 2- 0 Vicryl suture. We irrigated thoroughly, closing the sheath with some 2-0 Vicryl, 3-0 Monocryl for the subcu, and philip for the skin. A compression dressing plaster splint was applied. [id number]/[facility] #: [id number] CELINA
== END | disposition home or self-care (01) ==
LOC: OR 07:52
PROVIDERS: ATTEND Orthopaedic Surgery
DX: M76.821 Posterior tibial tendinitis, right leg (principal); J44.9 Chronic obstructive pulmonary disease, unspecified; Z86.73 Personal history of transient ischemic attack (TIA), and cerebral infarction without residual deficits; Z79.01 Long term (current) use of anticoagulants; Z95.1 Presence of aortocoronary bypass graft; E11.9 Type 2 diabetes mellitus without complications; Z95.810 Presence of automatic (implantable) cardiac defibrillator; Z87.891 Personal history of nicotine dependence
CPT/HCPCS: A9270-GY; J0690; J2250; J3010; J3490

== ENCOUNTER 2019-04-19 13:22 | Emergency (ER) | payer OTHER ==
--- OUTSIDE RECORDS SUMMARY | 2019-04-19 13:37 | XMS REPORT | Continuity of Care Document ---
:1955 External Reference #:[id number] Author Name Topher Barbour M.D. 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 Problems Description No Information Available Social History Type Date Description Comments Sex Unknown ETOH Use Denies alcohol use Tobacco Use Start: Unknown End: Patient is a former smoker Unknown Smoking Status Reviewed: 03/13/19 Patient is a former smoker Exercise Type/Frequency Exercises sporadically Allergies, Adverse Reactions, Alerts Active Allergies Reaction Severity Comments Date Demerol 03/23/2016 Iodine 03/23/2016 Shellfish-derived Products 03/23/2016 Victoza 12/14/2016 Medications Active Medications SIG Qnty Indications Ordering Date Provider Tramadol HCL 1 tablet by 42tabs Topher Barbour, 08/02/2018 50mg Tablets mouth every 6 M.D. hours as needed pain Pravastatin Sodium 1 tablet once 90tabs Ry Rooney 05/17/2012 80mg daily at [facility], Tablets bedtime FACC, NUNO Potassium Chloride ER 1 by mouth 90tabs Unknown 10Meq every day Tablets ER Vitamin D 1 by mouth Unknown (Cholecalciferol) twice daily 1000Unit Capsules Ezetimibe take one tablet Unknown 10mg Tablets daily, use generic Vitamin B12 1 by mouth 30tabs Unknown 1000mcg Tablets every day ER Metoclopramide HCL Chemo Emerson MD 5mg Tablets [...] Nitroglycerin prn Unknown 0.6mg Tablets Sub Nasal [place] 2 sprays each Unknown nostril daily Protonix 1 by mouth Unknown 40mg Tablets DR twice daily Aspirin Adult Low take one tablet Unknown Strength by mouth daily. 81mg Tablets DR Metoprolol Succinate ER 1 by mouth Unknown 50mg twice Tablets ER 24HR History Medications [place] 1 by mouth every 60tabs M96.0 Topher Barbour, 01/23/2019 - 5-325mg 8 hours as needed M.D. 02/25/2019 Tablets for pain Keflex 1 by mouth three 30caps M96.0 Topher Barbour, 01/03/2019 - 500mg times a day M.D. 01/22/2019 Capsules Oxycodone HCL 1 tabs by mouth 30tabs Topher Barbour, 10/29/2018 - 5mg every 8 hours as M.D. 02/25/2019 Tablets needed Medrol take as directed 21units Topher Barbour, 09/27/2018 - 4mg TBPK on pack M.D. 10/22/2018 Medications Administered in Office Medication SIG Qnty Indications Ordering Provider Date Triamcinolone (Kenalog) JOSE Germain 09/12/2018 Injection Immunizations Description No Information Available Vital Signs Date Vital Result Comment 03/13/2019 9:41am Height 71 inches 5'11" Heart Rate 78 /min BP Systolic Sitting 122 mmHg BP Diastolic Sitting 82 mmHg Respiratory Rate 20 /min Pain Level 6 O2 % BldC Oximetry 98 % with 2 liters NC 02/26/2019 8:10am Height 71 inches 5'11" Weight 249.00 lb Body Temperature 98.0 F Pain Level 10 BMI (Body Mass Index) 34.7 kg/m2 Results Test Date Facility Test Result H/L Range Note Laboratory test 10/29/2018 [facility] Surgical SEE RESULT [address] [place] [address] [phone] Laboratory test 10/29/2018 [facility] Point of Care 110 mg/dL High 70-100 [address] [place] [address] [phone] Laboratory test 10/28/2018 [facility] Semiten SEE RESULTS 3 , [address] BELO <[place] [address] NOTE> [phone] Xray 10/18/2018 [facility] US Soft Tissue <pending> [address] [place] [address] [phone] 1 SEE RESULT BELOW Name: MARIETTA ROSENTHAL : [address]: Topher Barbour MD Acct: [id number] Unit: [id number] AGE: 63 Location: OR Re10/29/18 SEX: M Status: TALIA CARTER SPEC: [id number] DANNY: 10/29/18- SUBM DR: Topher Barbour MD REQ: [id number] RECD: 10/29/18415 STATUS: SOUT _ ORDERED: LEVEL 3 FINAL [...] a small amount of chalky larsen-white speckling. Agricultural Technical Officer sections, one cassette. Signed by and Reported on: Derrick Farrell MD 09/14 1805 END OF REPORT DEPARTMENT OF PATHOLOGY, [address] [place] [address] Derrick Farrell M.D. Director [facility] # [id number] 2 Business Office Technology Instructor: [id number] 3 PERONEAL TENDINITIS, RIGHT LEG 4 SEE RESULTS BELOW [id number] SEMITEN TRANSFUSED 10/29/18 1030 Procedures Date Code Description Status 02/06/2019 50716 ECHO Transthorasic Realtime 2D W Doppler & Color Flow Hosp Completed 11/08/2018 21555 Short Leg Cast Completed 10/29/2018 93460 Repair Flexor Tendon Leg Secondary W/Wo Graft Completed 10/29/2018 84065 Repair Flexor Tendon Leg Secondary W/Wo Graft Completed 10/29/2018 02089 Repair Flexor Tendon Leg Secondary W/Wo Graft Completed 10/29/2018 65439 Repair Flexor Tendon Leg Secondary W/Wo Graft Completed 09/12/2018 97453 Inject/Drain Joint/Bursa Major W/O US Completed Medical Devices Description No Information Available Encounters Type Date Location Provider Dx Diagnosis Office Visit 03/13/2019 [facility] Topher Barbour M76.821 Posterior tibial 9:45a at [facility] [place] tendinitis, right leg Office Visit 02/07/2019 [facility] Kenia Thuman, R07.89 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 unspecified Hospitalists I10 Essential (primary) hypertension E78.5 Hyperlipidemia, unspecified I50.32 Chronic diastolic (congestive) heart failure Z86.79 Personal history of other diseases of the circulatory system Z87.09 Personal history of other diseases of the respiratory system Z87.19 Personal history of other diseases of the digestive system Office Visit 02/06/2019 [facility] Yumiko Michelle, R07.9 Chest pain, 9:36a Assyanira sepulveda M.D. unspecified Hospitalists J96.11 Chronic respiratory failure with hypoxia Z86.79 Personal history of other diseases of the circulatory system Z87.891 Personal history of nicotine dependence Office Visit 01/23/2019 Ramez Obando M96.0 Pseudarthrosis after 3:15p Orthopedics anthony Barbour M.D. fusion or [place] arthrodesis Office Visit 01/03/2019 Ramez Obando M96.0 Pseudarthrosis after 8:00a Orthopedics anthony Barbour M.D. fusion or [place] arthrodesis Office Visit 10/16/2018 Ramez Obando M76.71 Peroneal tendinitis, 8:45a Orthopedics anthony Barbour M.D. 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 after fusion or [place] arthrodesis Office Visit 09/12/2018 Ramez Mario, M25.571 Pain in right ankle 1:[facility] [place] foot Assessments Date Code Description Provider 03/13/2019 M76.821 Posterior tibial tendinitis, right leg Topher Barbour M.D. 02/26/2019 M76.821 Posterior tibial tendinitis, right leg Topher Barbour M.D. 02/07/2019 R07.89 Other chest pain Kenia Morgan NP 02/07/2019 I25.810 Atherosclerosis of coronary artery bypass Keniajoshua Morgan NP graft(s) without angina pectoris 02/07/2019 Z95.1 Presence of aortocoronary bypass graft Kenia Morgan NP 02/07/2019 I25.5 Ischemic cardiomyopathy Kenia Morgan NP 02/07/2019 R07.9 Chest pain, unspecified Yumiko Michelle M.D. 02/07/2019 I10 Essential (primary) hypertension Yumiko Michelle M.D. 02/07/2019 E78.5 Hyperlipidemia, unspecified Yumiko Michelle M.D. 02/07/2019 I50.32 Chronic diastolic (congestive) heart failure Yumiko Michelle M.D. 02/07/2019 Z86.79 Personal history of other diseases of the Yumiko Michelle M.D. circulatory system 02/07/2019 Z87.09 Personal history of other diseases of the Yumiko Michelle M.D. respiratory system 02/07/2019 Z87.19 Personal history of other diseases of the Yumiko Michelle M.D. digestive system 02/06/2019 R07.9 Chest pain, unspecified Mel Gibson M.D. 02/06/2019 R07.9 Chest pain, unspecified Yumiko Michelle M.D. 02/06/2019 J96.11 Chronic respiratory failure with hypoxia Yumiko Michelle M.D. 02/06/2019 Z86.79 Personal history of other diseases of the Yumiko Michelle M.D. circulatory system 02/06/2019 Z87.891 Personal history of nicotine dependence Yumiko Michelle M.D. 01/23/2019 M96.0 Pseudarthrosis after fusion or arthrodesis [...] right ankle and joints of right foot JOSE Germain 09/12/2018 M25.571 Pain in right ankle and joints of right foot Herberth Mario M.D. Plan of Treatment Future Appointment(s):03/26/2019 8:30 am - Topher Barbour M.D. at [facility] at Gjfciw2303/13/2019 - Topher Barbour M.D.M76.821 Posterior tibial tendinitis, right legNew Medication: - Functional Status Description No Information Available Mental Status Description No Information Available Referrals Refer to Reason for Referral Status Appt Date Topher Barbour MD Created [address] [place] [address] [phone]
--- OUTSIDE RECORDS SUMMARY | 2019-04-19 13:37 | XMS REPORT | Continuity of Care Document ---
:1955 External Reference #:[id number] Author Name Topher Barbour M.D. 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 Problems Description No Information Available Social History Type Date Description Comments Sex Unknown ETOH Use Denies alcohol use Tobacco Use Start: Unknown End: Patient is a former smoker Unknown Smoking Status Reviewed: 04/04/19 Patient is a former smoker Exercise Type/Frequency Exercises sporadically Allergies, Adverse Reactions, Alerts Active Allergies Reaction Severity Comments Date Demerol 03/23/2016 Iodine 03/23/2016 Shellfish-derived Products 03/23/2016 Victoza 12/14/2016 Medications Active Medications SIG Qnty Indications Ordering Date Provider Carlotta 1 by mouth 60tabs M76.821 Topher Barbour 03/21/2019 5-325mg Tablets every 8 hours M.D. as needed for pain Cyclobenzaprine HCL take 1 tab 30tabs M76.821 Topher Barbour 03/21/2019 10mg twice a day as M.D. Tablets needed for pain/muscle spasms Tramadol HCL one pill twice 45tabs M76.821 Topher Barbour 03/13/2019 50mg Tablets day for pain M.D. Tramadol HCL 1 tablet by 42tabs Topher Barbour, 08/02/2018 50mg Tablets mouth every 6 M.D. hours as needed pain Pravastatin Sodium 1 tablet once 90tabs Ry Rooney 05/17/2012 80mg daily at [facility], Tablets bedtime FACC, FASNC Potassium Chloride ER 1 by mouth 90tabs [...] Prochlorperazine Maleate as needed Unknown 10mg Tablets Lasix 1 by mouth Unknown 20mg Tablets every day Albuterol Sulfate four times a Unknown (5mg/ML) day or as 0.5% Nebulizer needed Plavix 1 by mouth Unknown 75mg Tablets every day Ranexa take 2 tablet Unknown 500mg Tablets ER 12HR by mouth daily Nitroglycerin prn Unknown 0.6mg Tablets Sub Nasal [place] 2 sprays each Unknown nostril daily Protonix 1 by mouth Unknown 40mg Tablets DR twice daily Aspirin Adult Low take one tablet Unknown Strength by mouth daily. 81mg Tablets DR Metoprolol Succinate ER 1 by mouth Unknown 50mg twice Tablets ER 24HR History Medications [place] 1 by mouth every 60tabs M96.0 Topher Barbour, 01/23/2019 - 5-325mg 8 hours as M.D. 02/25/2019 Tablets needed for pain Keflex 1 by mouth three 30caps M96.0 Topher Barbour, 01/03/2019 - 500mg times a day M.D. 01/22/2019 Capsules Oxycodone HCL 1 tabs by mouth 30tabs Topher Barbour, 10/29/2018 - 5mg every 8 hours as M.D. 02/25/2019 Tablets needed Medications Administered in Office Medication SIG Qnty Indications Ordering Provider Date Triamcinolone (Kenalog) JOSE Germain 09/12/2018 Injection Immunizations Description No Information Available Vital Signs Date Vital Result Comment 04/04/2019 9:49am Height 71 inches 5'11" Weight 249.00 lb pt stated Heart Rate 64 /min BP Systolic 110 mmHg BP Diastolic 74 mmHg Respiratory Rate 17 /min Body Temperature 99.0 F Pain Level 8 BMI (Body Mass Index) 34.7 kg/m2 03/21/2019 8:20am Height 71 inches 5'11" Weight 245.00 lb Heart Rate 88 /min BP Systolic 118 mmHg BP Diastolic 88 mmHg BMI (Body Mass Index) 34.2 kg/m2 Results Test Acquired Date Facility Test Result H/L Range Note Laboratory test 10/29/2018 [facility] Surgical SEE RESULT [address] [place] [address] [phone] Laboratory test 10/29/2018 [facility] Point of Care 110 mg/dL High 70-100 [address] [place] [address] [phone] Laboratory test 10/28/2018 [facility] Semiten SEE RESULTS 3 , [address] BELO <[place] [address] NOTE> [phone] Xray 10/18/2018 [facility] US Soft Tissue <pending> [address] [place] [address] [phone] 1 SEE RESULT BELOW Name: MARIETTA EID : [address]: Topher Barbour MD Acct: [id number] Unit: [id number] AGE: 63 Location: OR Re10/29/18 SEX: M Status: TALIA CARTER SPEC: [id number] DANNY: 10/29/18- SUBM DR: Topher Barbour MD REQ: [id number] RECD: 10/29/18-7154 STATUS: SOUT _ ORDERED: LEVEL 3 FINAL [...] a small amount of chalky larsen-white speckling. High Court Justice sections, one cassette. Signed by and Reported on: Derrick Farrell MD 09/14 1806 END OF REPORT DEPARTMENT OF PATHOLOGY, [address] [place] [address] Derrick Farrell M.D. Director [facility] # [id number] 2 Diamond Cleaner: [id number] PERONEAL TENDINITIS, RIGHT LEG 4 SEE RESULTS BELOW [id number] SEMITEN TRANSFUSED 10/29/18 1030 Procedures Date Code Description Status 02/07/2019 15528 EKG, Interpretation Only Completed 02/06/2019 31134 ECHO Transthorasic Realtime 2D W Doppler & Color Flow Hosp Completed 11/08/2018 27941 Short Leg Cast Completed 10/29/2018 49310 Repair Flexor Tendon Leg Secondary W/Wo Graft Completed 10/29/2018 80272 Repair Flexor Tendon Leg Secondary W/Wo Graft Completed 10/29/2018 12135 Repair Flexor Tendon Leg Secondary W/Wo Graft Completed 10/29/2018 74988 Repair Flexor Tendon Leg Secondary W/Wo Graft Completed Medical Devices Description No Information Available Encounters Type Date Location Provider Dx Diagnosis Office Visit 03/13/2019 [facility] Topher Barbour M76.821 Posterior tibial 9:45a at [place] [facility] tendinitis, right leg Office Visit 02/26/2019 [facility] Topher Barbour M76.821 Posterior tibial 8:00a at [place] [facility] tendinitis, right leg Office Visit 02/07/2019 [facility] Keniajoshua Morgan, R07.89 Other chest pain 5:51p 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 EXAMINER 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.1 Presence of aortocoronary bypass graft I25.5 Ischemic cardiomyopathy Office Visit 02/07/2019 [facility] Yumiko Michelle, R07.9 Chest pain, 9:37a Assoc,yanira [place] unspecified Hospitalists I10 Essential (primary) hypertension E78.5 Hyperlipidemia, unspecified I50.32 Chronic diastolic (congestive) heart failure Z86.79 Personal history of other diseases of the circulatory system Z87.09 Personal history of other diseases of the respiratory system Z87.19 Personal history of other diseases of the digestive system Office Visit 02/06/2019 [facility] Yumiko Michelle, R07.9 Chest pain, 9:36a Assocyanira M.D. unspecified Hospitalists J96.11 Chronic respiratory failure with hypoxia Z86.79 Personal history of other diseases of the circulatory system Z87.891 Personal history of nicotine dependence Office Visit 01/23/2019 [place] [facility] Topher M96.0 Pseudarthrosis after 3:15p Orthopedics anthony Barbour M.D. fusion or [place] arthrodesis Office Visit 01/03/2019 Ramez Obando M96.0 Pseudarthrosis after 8:00a Orthopedics anthony Barbour M.D. 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 03/21/2019 MBharati.821 Posterior tibial tendinitis, right leg Topher Barbour M.D. 03/13/2019 MBharati.821 Posterior tibial tendinitis, right leg Topher Barbour M.D. 02/26/2019 M76.821 Posterior tibial tendinitis, right leg Topher Barbour M.D. 02/07/2019 R07.9 Chest pain, unspecified Mel Gibson M.D. 02/07/2019 R07.89 Other chest pain Kenia Morgan NP 02/07/2019 I25.810 Atherosclerosis of coronary artery bypass Kenia Morgan NP graft(s) without angina pectoris 02/07/2019 [...] after fusion or arthrodesis Topher Barbour M.D. Plan of Treatment Future Appointment(s):04/15/2019 10:15 am - JOSE Bolton at [facility] at Frutvl7604/30/2019 8:30 am - Topher Barbour M.D. at [facility] at Sdsmku5204/15/2019 10:15 am - Topher Barbour M.D. at [facility] at Mejcph8904/04/2019 - Topher Barbour M.D.M76.821 Posterior tibial tendinitis, right legFollow up:10-14 days postop Functional Status Description No Information Available Mental Status Description No Information Available Referrals Refer to Reason for Referral Status Appt Date Topher Barbour MD Created [address] [place] [address] [phone]
--- OUTSIDE RECORDS SUMMARY | 2019-04-19 13:37 | XMS REPORT | Continuity of Care Document ---
:1955 External Reference #:[id number] Author Name Topher Barbour M.D. 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 [...] Nitroglycerin prn Unknown 0.6mg Tablets Sub Nasal [place] 2 sprays each Unknown nostril daily Protonix 1 by mouth Unknown 40mg Tablets DR twice daily Aspirin Adult Low take one tablet Unknown Strength by mouth daily. 81mg Tablets DR Metoprolol Succinate ER 1 by mouth Unknown 50mg twice Tablets ER 24HR History Medications [place] 1 by mouth every 60tabs M96.0 Topher [...] Result H/L Range Note Laboratory test 10/29/2018 [facility] Surgical SEE RESULT [address] [place] [address] [phone] Laboratory test 10/29/2018 [facility] Point of Care 110 mg/dL High 70-100 [address] [place] [address] [phone] Laboratory test 10/28/2018 [facility] Semiten SEE RESULTS 3 , [address] BELO <[place] [address] NOTE> [phone] Xray 10/18/2018 [facility] US Soft Tissue <pending> [address] [place] [address] [phone] 1 SEE RESULT BELOW Name: MARIETTA EID : [address]: Topher Barbour MD Acct: [id number] Unit: [id number] AGE: 63 Location: OR Re10/29/18 SEX: M Status: [facility] [place] SPEC: [id number] DANNY: 10/29/18- [facility] DR: Topher Barbour MD REQ: [id number] RECD: 10/29/18-0762 STATUS: SOUT _ ORDERED: LEVEL 3 FINAL [...] a small amount of chalky larsen-white speckling. Ibm Websphere Commerce Developer sections, one cassette. Signed by and Reported on: Derrick Farrell MD 09/14 1805 END OF REPORT DEPARTMENT OF PATHOLOGY, [address] [place] [address] Derrick Farrell M.D. Director [facility] # [id number] 2 Historical Manuscripts Curator: [id number] PERONEAL TENDINITIS, RIGHT LEG 4 SEE RESULTS BELOW [id number] SEMITEN TRANSFUSED 10/29/18 1030 Procedures Date Code Description Status 02/06/2019 12787 ECHO Transthorasic Realtime 2D W Doppler & Color Flow Hosp Completed 11/08/2018 22053 Short Leg Cast Completed 10/29/2018 07779 Repair Flexor Tendon Leg Secondary W/Wo Graft Completed 10/29/2018 41411 Repair Flexor Tendon Leg Secondary W/Wo Graft Completed 10/29/2018 86696 Repair Flexor Tendon Leg Secondary W/Wo Graft Completed 10/29/2018 87946 Repair Flexor Tendon Leg Secondary W/Wo Graft Completed 09/12/2018 55719 Inject/Drain Joint/Bursa Major W/O US Completed Medical Devices Description No Information Available Encounters Type Date Location Provider Dx Diagnosis Office Visit 02/07/2019 [facility] Kenia Morgan NP R07.89 Other chest pain 5:51p 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 Yumiko Hohn, R07.9 Chest pain, 9:37a yanira Harmon M.D. unspecified Hospitalists I10 Essential (primary) hypertension E78.5 Hyperlipidemia, unspecified I50.32 Chronic diastolic (congestive) heart failure Z86.79 Personal history of other diseases of the circulatory system Z87.09 Personal history of other diseases of the respiratory system Z87.19 Personal history of other diseases of the digestive system Office Visit 02/06/2019 [facility] Yumiko Hohn, R07.9 Chest pain, 9:36a yanira Harmon M.D. unspecified Hospitalists J96.11 Chronic respiratory failure with hypoxia Z86.79 Personal history of other diseases of the circulatory system Z87.891 Personal history of nicotine dependence Office Visit 01/23/2019 Ramez Obando M96.0 Pseudarthrosis after 3:15p Orthopedics at [facility] fusion or [place] arthrodesis Office Visit 01/03/2019 Ramez Obando M96.0 Pseudarthrosis after 8:00a Orthopedics at [facility] fusion or [place] arthrodesis Office Visit 10/16/2018 Ramez Obando M76.71 Peroneal tendinitis, 8:45a Orthopedics anthony Barbour M.D. 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 at [facility] at Oeubwm8203/13/2019 - Topher Barbour M.D.M76.821 Posterior tibial tendinitis, right legNew Medication:Tramadol HCL 50 mg - one pill twice day for pain Functional Status Description No Information Available Mental Status Description No Information Available Referrals Refer to Reason for Referral Status Appt Date Topher Barbour MD Created [address] [place] [address] [phone]
--- OUTSIDE RECORDS SUMMARY | 2019-04-19 13:37 | XMS REPORT | Continuity of Care Document ---
:1955 External Reference #:[id number] Author Name Topher Barbour M.D. 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 81mg Tablets DR Metoprolol Succinate ER 1 by mouth Unknown 50mg twice Tablets ER 24HR History Medications [place] 1 by mouth every 60tabs M96.0 Topher [...] Medication SIG Qnty Indications Ordering Provider Date Tricinolone (Kenalog) Polly Xiongjoy, RPA-Andre 09/12/2018 Injection Immunizations Description No Information Available Vital Signs Date Vital Result Comment 03/21/2019 8:20am Height 71 inches 5'11" Weight 245.00 lb Heart Rate 88 /min BP Systolic 118 mmHg BP Diastolic 88 mmHg BMI (Body Mass Index) 34.2 kg/m2 03/13/2019 9:41am Height 71 inches 5'11" Heart Rate 78 /min BP Systolic Sitting 122 mmHg BP Diastolic Sitting 82 mmHg Respiratory Rate 20 /min Pain Level 6 O2 % BldC Oximetry 98 % with 2 liters NC Results Test Date Facility Test Result H/L Range Note Laboratory test 10/29/2018 [facility] Surgical SEE RESULT [address] [place] [address] [phone] Laboratory test 10/29/2018 [facility] Point of Care 110 mg/dL High 70-100 [address] [place] [address] [phone] Laboratory test 10/28/2018 [facility] Semiten SEE RESULTS 3 , [address] BELO <[place] [address] NOTE> [phone] Xray 10/18/2018 [facility] US Soft Tissue <pending> [address] [place] [address] [phone] 1 SEE RESULT BELOW Name: MARIETTA EID : [address]: Topher Barbour MD Acct: [id number] Unit: [id number] AGE: 63 Location: OR Re10/29/18 SEX: M Status: DEP [place] SPEC: [id number] DANNY: 10/29/18- SUBM DR: Topher Barbour MD REQ: [id number] RECD: 10/29/[id number] STATUS: SOUT _ ORDERED: LEVEL 3 FINAL DIAGNOSIS Right ankle, tendon, resection: -- Tophaceous gout. -- Tendon tissue with degenerative features. PRE-OPERATIVE DIAGNOSIS Right ankle pain GROSS DESCRIPTION The specimen is received in formalin labeled, Right Ankle Foreign Tendon, and consists of a 3.2 x 2.5 x 1.1 cm aggregate of larsne-red irregular rubbery fibrous tissue fragments admixed with scant bone. The cut surface is rubbery larsen-pink with a small amount of chalky larsen-white speckling. 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 Signed by and Reported on: Derrick Farrell MD 09/14 1805 END OF REPORT DEPARTMENT OF PATHOLOGY, [address] [place] [address] Derrick Farrell M.D. Director [facility] # [id number] 2 Slip Operator: [id number] 3 PERONEAL TENDINITIS, RIGHT LEG 4 SEE RESULTS BELOW [id number] SEMITEN TRANSFUSED 10/29/18 1030 Procedures Date Code Description Status 02/07/2019 53485 EKG, Interpretation Only Completed 02/06/2019 08207 ECHO Transthorasic Realtime 2D W Doppler & Color Flow Hosp Completed 11/08/2018 46923 Short Leg Cast Completed 10/29/2018 60131 Repair Flexor Tendon Leg Secondary W/Wo Graft Completed 10/29/2018 00780 Repair Flexor Tendon Leg Secondary W/Wo Graft Completed 10/29/2018 73263 Repair Flexor Tendon Leg Secondary W/Wo Graft Completed 10/29/2018 93958 Repair Flexor Tendon Leg Secondary W/Wo Graft Completed Medical Devices Description No Information Available Encounters Type Date Location Provider Dx Diagnosis Office Visit 02/07/2019 [facility] Kenia Morgan NP R07.89 Other chest pain 5:51p 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 unspecified Hospitalists I10 Essential (primary) hypertension E78.5 Hyperlipidemia, unspecified I50.32 Chronic diastolic (congestive) heart failure Z86.79 Personal history of other diseases of the circulatory system Z87.09 Personal history of other diseases of the respiratory system Z87.19 Personal history of other diseases of the digestive system Office Visit 02/06/2019 [facility] Yumiko Michelle, R07.9 Chest pain, 9:36a yanira Harmon M.D. unspecified Hospitalists J96.11 Chronic respiratory failure with hypoxia Z86.79 Personal history of other diseases of the circulatory system Z87.891 Personal history of nicotine dependence Office Visit 01/23/2019 Ramez Obando M96.0 Pseudarthrosis after 3:15p [facility] at [facility] fusion or [place] arthrodesis Office Visit 01/03/2019 Ramez Obando M96.0 Pseudarthrosis after 8:00a Orthopedics anthony Barbour M.D. fusion or [place] arthrodesis Office Visit 10/16/2018 Ramez Obando M76.71 Peroneal tendinitis, 8:45a Orthopedics anthony Barbour M.D. right leg [place] S84.11xA Injury of peroneal nerve at lower leg level, right leg, init M25.571 Pain in right ankle and joints of right foot Office Visit 10/04/2018 Ramez Obando M96.0 Pseudarthrosis after 8:15a [facility] at [facility] fusion or [place] arthrodesis Assessments Date Code Description Provider 03/21/2019 M76.821 Posterior tibial tendinitis, right leg Topher Barbour M.D. 03/13/2019 M76.821 Posterior tibial tendinitis, right leg [...] Topher Barbour M.D. Plan of Treatment Future Appointment(s):04/04/2019 10:45 am - Topher Barbour M.D. at [facility]03/26/2019 8:30 am - Topher Barbour M.D. at [facility]03/21/2019 - Topher Barbour M.D.M76.821 Posterior tibial tendinitis, right legNew Medication:[place] 5-325 mg - 1 by mouth every 8 hours as needed for painCyclobenzaprine HCL 10 mg - take 1 tab twice a day as needed for pain/muscle spasmsFollow up:after testing is completed Functional Status Description No Information Available Mental Status Description No Information Available Referrals Refer to Reason for Referral Status Appt Date Topher Barbour MD Created [address] [place] [address] [phone]
[2019-04-19] MEDS ORDERED: Morphine INJ* 2 MG/ML 1 ML SYRINGE (TWO MG - NEW SYRINGE VERSION) IV ONE ×2 (14:18→15:20)
[2019-04-19 14:23] LABS: ABS Eosinophils 0.2 10^3/ul (0-0.6); ABS Monocytes 0.7 10^3/ul (0-0.8); Eosinophil % 2.3 %; Hematocrit 39 % (42-52); Hemoglobin 13.5 g/dL (14.0-18.0); Lymphocyte % 12.2 %; Mean Corpuscular HGB Conc 35 g/dL (31-36); Mean Corpuscular Hemoglobin 31 pg (27-31); Mean Corpuscular Volume 90 fL (80-94); Mean Platelet Volume 7.4 fL (7.4-10.4); Platelet Count 165 10^3/uL (150-450); Red Blood Count 4.33 10^6 /uL (4.18-5.48); Red Cell Distribution Width 14 % (10-15); White Blood Count 7.9 10^3/uL (3.5-10.8)
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
[2019-04-19 14:47] LABS: Albumin 3.6 g/dL (3.2-5.2); BUN/Creatinine Ratio 12.2 (8-20); Calcium 9.4 mg/dL (8.6-10.3); EGFR African American 78.2 (>60); EGFR Non-African American 64.7 (>60); Globulin 3.5 g/dL (2-4); Potassium 3.9 mmol/L (3.5-5.0); Total Protein 7.1 g/dL (6.4-8.9)
[2019-04-19 14:48] LABS: C Reactive Protein 289.22 mg/L (<8.01); Total Bilirubin 1.2 mg/dL (0.2-1.0)
[2019-04-19 14:49] LABS: Troponin I 0.01 ng/mL (<0.03)
[2019-04-19] MEDS ORDERED: NS 0.9% 1000 ML** 1,000 ML IV ONE (15:08)
[2019-04-19] MEDS ORDERED: Morphine 4 MG/ML VIAL (1 ml) 4 MG/ML VIAL IV ONE (16:21)
[2019-04-19 17:38] VITALS: BP 101/66
== END 2019-04-19 17:37 | disposition home or self-care (01) ==
LOC: ED 13:22
DX: M79.604 Pain in right leg (principal); I50.9 Heart failure, unspecified; E11.9 Type 2 diabetes mellitus without complications; I25.10 Atherosclerotic heart disease of native coronary artery without angina pectoris; E78.00 Pure hypercholesterolemia, unspecified; I11.0 Hypertensive heart disease with heart failure; J44.9 Chronic obstructive pulmonary disease, unspecified; K21.9 Gastro-esophageal reflux disease without esophagitis; Z86.73 Personal history of transient ischemic attack (TIA), and cerebral infarction without residual deficits; I25.2 Old myocardial infarction; Z95.1 Presence of aortocoronary bypass graft; Z95.5 Presence of coronary angioplasty implant and graft; Z95.810 Presence of automatic (implantable) cardiac defibrillator; Z87.891 Personal history of nicotine dependence; Z79.01 Long term (current) use of anticoagulants; Z79.82 Long term (current) use of aspirin; Z79.84 Long term (current) use of oral hypoglycemic drugs; Z79.899 Other long term (current) drug therapy; Z88.5 Allergy status to narcotic agent; Z88.8 Allergy status to other drugs, medicaments and biological substances; Z91.041 Radiographic dye allergy status
CPT/HCPCS: 36415; 71046; 78582; 80053; 83880; 84484; 85025; 86140; 93005; 96374; 96376; 99283; A9540; A9558; J2270

== ENCOUNTER 2019-08-05 09:39 | Day surgery (SDC) | payer OTHER ==
[~2019-08-05 09:39] MED LIST changes: -Bupivacaine 0.5%* 50 ML MDV VIAL ONE; -Etomidate* 2 MG/ML 10 ML VIAL ONE; -Midazolam* 1 MG/ML 2 ML VIAL (2 MG) ONE; -Naloxone* 0.4 MG/ML 1 ML VIAL IV PRN; -Ondansetron INJ* 2 MG/ML VIAL IV PRN; -Sodium Citrate/Citric Acid* 15 ML UDC ONE; -Sodium Citrate/Citric Acid* 15 ML UDC PO ONE; -ceFAZolin 2 GM in NS PREMIX(*) 2 GM/100 ML BAG IVPB ONE; -fentaNYL* 50 MCG/ML 2 ML VIAL (100 MCG VIAL) ONE; -oxyCODONE TAB* 5 MG TAB ONE
[2019-08-05] MEDS ORDERED: ceFAZolin 2 GM PREMIX in ORs 2 GM/50 ML BAG ONE (09:54)
[2019-08-05] MEDS ORDERED: Buffered Lidocaine 1% SYRIN* 1 ML/SYRINGE INTRADERM ONE (10:11)
[2019-08-05] MEDS ORDERED: fentaNYL* 50 MCG/ML 2 ML VIAL (100 MCG VIAL) ONE (11:07)
[2019-08-05] MEDS ORDERED: Midazolam* 1 MG/ML 2 ML VIAL (2 MG) ONE (11:07)
[2019-08-05] MEDS ORDERED: Rocuronium* 10 MG/ML VIAL ONE (12:09)
[2019-08-05] MEDS ORDERED: Ondansetron INJ* 2 MG/ML VIAL ONE (12:11)
[2019-08-05] MEDS ORDERED: Etomidate* 2 MG/ML 10 ML VIAL ONE (12:11)
[2019-08-05] MEDS ORDERED: Propofol* 10 MG/ML 20 ML BTL ONE (12:11)
[2019-08-05] MEDS ORDERED: Dexamethasone IV* 4 MG/ML 1 ML (4 MG) ONE (12:11)
[2019-08-05] MEDS ORDERED: Lidocaine 2% PF * 5 ML VIAL ONE (12:12)
[2019-08-05] MEDS ORDERED: Sugammadex * 200 MG/2 ML VIAL IV PUSH ONE (13:00)
[2019-08-05] MEDS ORDERED: Acetaminophen TAB* 325 MG PO PRN (13:19)
[2019-08-05] MEDS ORDERED: Naloxone* 0.4 MG/ML 1 ML VIAL IV PRN (13:19)
[2019-08-05] MEDS ORDERED: Ketorolac INJ* 30 MG/ML 1 ML VIAL IV PRN (13:19)
[2019-08-05] MEDS ORDERED: HYDROmorphone INJ1* 1 MG/ML SYRINGE ONE ×2 (13:21→14:02)
[2019-08-05] MEDS: HYDROmorphone INJ1* 1 MG/ML SYRINGE IV PRN ×2 (13:22→13:34)
[2019-08-05] MEDS ORDERED: Acetaminophen TAB* 325 MG ONE (13:25)
[2019-08-05] MEDS ORDERED: Bupivacaine 0.5%* 50 ML MDV VIAL ONE (13:31)
[2019-08-05] MEDS ORDERED: Ketorolac INJ* 30 MG/ML 1 ML VIAL ONE (13:41)
[2019-08-05] MEDS ORDERED: HYDROmorphone INJ1* 1 MG/ML SYRINGE IV PRN (14:03)
[2019-08-05] MEDS ORDERED: oxyCODONE TAB* 5 MG TAB PO PRN (14:03)
[2019-08-05] MEDS ORDERED: oxyCODONE TAB* 5 MG TAB ONE (14:25)
[2019-08-05 14:34] VITALS: BP 110/74
--- NOTE | 2019-08-06 05:36 | OP ---
DATE OF OPERATION: 08/05/19 - [facility] DATE OF : 59 SURGEON: Topher Barbour MD MATERIALS DIRECTOR: David Leblanc PA-C PRE-OP DIAGNOSIS: Painful left tibiotalar calcaneal hindfoot nail. POST-OP DIAGNOSIS: Painful left tibiotalar calcaneal hindfoot nail. OPERATIVE PROCEDURE: Removal of nail, left hindfoot. DESCRIPTION OF PROCEDURE: The patient was taken to the operating room in lateral positioning. Using the C-arm, we were able to identify the posterior plantar and mid portion screws of the locking portion of the nail. This was removed percutaneously with a 5 mm star screwdriver. We then tunneled down to the base of the nail through the plantar heel. We were able to place the targeting device back on to the end of the nail. There was a small which we removed. We then targeted directly through the posterolateral hindfoot to find the talar screw. This was removed also with a 5 mm star screwdriver. We then backed out the nail, closing all 3 wounds with irrigation and Monocryl sutures and 2-0 Prolene for the skin and a compression dressing plaster splint applied. [id number]/[facility] #: [id number] CELINA
== END 2019-08-05 14:15 | disposition home or self-care (01) ==
LOC: OR 09:39
PROVIDERS: ATTEND Orthopaedic Surgery
DX: T84.84XA Pain due to internal orthopedic prosthetic devices, implants and grafts, initial encounter (principal); E11.8 Type 2 diabetes mellitus with unspecified complications; I10 Essential (primary) hypertension; E78.00 Pure hypercholesterolemia, unspecified; M54.5 Low back pain; M62.830 Muscle spasm of back; I25.10 Atherosclerotic heart disease of native coronary artery without angina pectoris; J44.9 Chronic obstructive pulmonary disease, unspecified; K21.9 Gastro-esophageal reflux disease without esophagitis; J45.909 Unspecified asthma, uncomplicated; Z98.84 Bariatric surgery status; Z91.013 Allergy to seafood; Z88.8 Allergy status to other drugs, medicaments and biological substances; Z79.01 Long term (current) use of anticoagulants; Z87.891 Personal history of nicotine dependence; Z79.84 Long term (current) use of oral hypoglycemic drugs; Z79.82 Long term (current) use of aspirin
CPT/HCPCS: 76000; 88300; A9270-GY; J0690; J1100; J1170; J1885; J2250; J2405; J2704; J3010; J3490

== ENCOUNTER 2021-01-11 14:16 | Inpatient (IN) ==
[2021-01-11 17:12] LABS: Venous Bicarbonate HCO3 27.5 mmol/L (24-28)
[2021-01-11 17:13] LABS: ABS Eosinophils 0.1 10^3/ul (0-0.6); ABS Lymphocytes 1.3 10^3/ul (1.0-4.8); ABS Monocytes 0.6 10^3/ul (0-0.8); Eosinophil % 0.9 %; Hematocrit 39 % (42-52); Hemoglobin 13.4 g/dL (14.0-18.0); Lymphocyte % 13.1 %; Mean Corpuscular HGB Conc 34 g/dL (31-36); Mean Corpuscular Hemoglobin 31 pg (27-31); Mean Corpuscular Volume 89 fL (80-94); Mean Platelet Volume 7.8 fL (7.4-10.4); Nucleated Red Blood Cells % 0.1; Platelet Count 195 10^3/uL (150-450); Red Blood Count 4.38 10^6 /uL (4.18-5.48); Red Cell Distribution Width 15 % (10-15)
[2021-01-11 17:31] LABS: Albumin 4.1 g/dL (3.2-5.2); Albumin/Globulin Ratio 1.2 (1-3); C Reactive Protein 76.71 mg/L (<8.01); EGFR African American 53.1 (>60); EGFR Non-African American 43.9 (>60); Globulin 3.3 g/dL (2-4); Potassium 3.7 mmol/L (3.5-5.0); Total Bilirubin 0.8 mg/dL (0.2-1.0); Total Protein 7.4 g/dL (6.4-8.9)
[2021-01-11 21:54] LABS: Urine Appearance Clear; Urine Bilirubin Negative (Negative); Urine Blood Negative (Negative); Urine Color Yellow; Urine Glucose 3+(>=500 mg/dL) (Negative); Urine Ketones Negative (Negative); Urine Nitrite Negative (Negative); Urine Protein Negative (Negative); Urine Specific Gravity 1.022 (1.002-1.030); Urine Urobilinogen Positive (Negative)
[2021-01-12] MEDS ORDERED: Albuterol/Ipratropium NEB.SOL (2.5/0.5 MG) 3 ML NEB.SOLN INH ONE (01:33)
[2021-01-12] MEDS: Lidocaine PATCH 5% PATCH TRANSDERM SCH (04:51)
[2021-01-12] MEDS ORDERED: Dextrose 50% Syringe 50 ml 25 GM/50 ML SYRINGE IV PUSH PRN (05:23)
[2021-01-12] MEDS ORDERED: Albuterol HFA INHALER 8 gm MDI INH PRN (05:52)
[2021-01-12] MEDS ORDERED: Albuterol 2.5mg/3 ml (0.083%) NEB.SOLN INH PRN (05:52)
[2021-01-12] MEDS: Aspirin EC 81 mg TAB.EC (enteric coated) PO SCH (08:13)
[2021-01-12] MEDS: Enoxaparin 40 MG/0.4 ML SYR SUBCUT SCH (08:13)
[2021-01-12] MEDS: Azithromycin 500 mg/250 ml NS 500 MG/250 ML BAG IVPB SCH (12:05)
[2021-01-12] MEDS ORDERED: Lidocaine Patch REMOVE PATCH PATCH OFF SCH (17:00)
[2021-01-12] MEDS ORDERED: Albuterol/Ipratropium NEB.SOL (2.5/0.5 MG) 3 ML NEB.SOLN INH SCH (19:00)
[2021-01-12] MEDS: Albuterol HFA INHALER 8 gm MDI INH SCH (19:16)
[2021-01-12] MEDS: Cholecalciferol (VIT D3) 1,000 unit TAB PO SCH (20:09)
[2021-01-12] MEDS: Erythromycin OPTH OINT APPLIC OINT LEFT EYE SCH (20:12)
[2021-01-12] MEDS ORDERED: CMC:Pravastatin 20 mg TAB (NF) PO SCH (21:00)
[2021-01-13] MEDS: Albuterol HFA INHALER 8 gm MDI INH SCH ×3 (02:15→13:27)
[2021-01-13 07:16] LABS: ABS Lymphocytes 1.3 10^3/ul (1.0-4.8); ABS Monocytes 0.5 10^3/ul (0-0.8); ABS Neutrophils 7.3 10^3/ul (1.5-7.7); Eosinophil % 0.4 %; Hematocrit 36 % (42-52); Hemoglobin 12.6 g/dL (14.0-18.0); Lymphocyte % 13.7 %; Mean Corpuscular HGB Conc 35 g/dL (31-36); Mean Corpuscular Hemoglobin 31 pg (27-31); Mean Corpuscular Volume 89 fL (80-94); Platelet Count 202 10^3/uL (150-450); Red Cell Distribution Width 15 % (10-15); White Blood Count 9.1 10^3/uL (3.5-10.8)
[2021-01-13 07:37] LABS: Calcium 9.1 mg/dL (8.6-10.3); EGFR African American 60.4 (>60); EGFR Non-African American 49.9 (>60); Magnesium 2.1 mg/dL (1.9-2.7); Phosphorus 4.1 mg/dL (2.5-5.0); Potassium 3.9 mmol/L (3.5-5.0)
[2021-01-13] MEDS ORDERED: Insulin GLARGINE 100 un/ml 10 ml VIAL SUBCUT SCH (09:00)
[2021-01-13] MEDS ORDERED: RANOLAZINE 500 MG PO SCH (09:00)
[2021-01-13] MEDS: Enoxaparin 40 MG/0.4 ML SYR SUBCUT SCH (09:10)
[2021-01-13] MEDS: Cholecalciferol (VIT D3) 1,000 unit TAB PO SCH (09:11)
[2021-01-13] MEDS: Aspirin EC 81 mg TAB.EC (enteric coated) PO SCH (09:11)
[2021-01-13] MEDS: Erythromycin OPTH OINT APPLIC OINT LEFT EYE SCH (09:12)
[2021-01-13] MEDS: Lidocaine PATCH 5% PATCH TRANSDERM SCH (09:15)
[2021-01-13] MEDS: Azithromycin 500 mg/250 ml NS 500 MG/250 ML BAG IVPB SCH (09:27)
[2021-01-13 12:48] VITALS: BP 106/79
== END 2021-01-13 12:03 | disposition home or self-care (01) | DRG 191 ==
LOC: ED 14:16 → MED 01-12 00:16 → SUATTDRO 01-12 00:16 → MED 01-12 02:41
PROVIDERS: ADMIT Internal Medicine; ATTEND Internal Medicine

== ENCOUNTER 2024-01-02 05:19 | Observation (INO) ==
[2024-01-02 05:50] LABS: ABS Basophils 0.1 10^3/uL (0.0-0.1); ABS Eosinophils 0.1 10^3/uL (0.0-0.5); ABS Lymphocytes 1.4 10^3/uL (1.0-4.8); ABS Monocytes 0.5 10^3/uL (0.0-1.1); ABS Neutrophils 7.1 10^3/uL (1.5-7.6); ABS Nucleated RBC 0.01 10^3/ul; Eosinophil % 0.9 %; Hemoglobin 13.1 g/dL (13.2-16.3); Lymphocyte % 15.2 %; Mean Corpuscular Hemoglobin 30.5 pg (27-33); Mean Corpuscular Hgb Conc 33.6 g/dL (31-36); Mean Corpuscular Volume 90.9 fL (80-97); Mean Platelet Volume 7.8 fL (7.5-11.2); Nucleated Red Blood Cells % 0.1 %/100WBC (0.0-0.8); Platelet Count 154 10^3/uL (150-450); Red Blood Count 4.29 10^6/uL (4.06-5.63); Red Cell Distribution Width 14.2 % (12-17); White Blood Count 9.1 10^3/uL (3.6-10.2)
[2024-01-02 06:10] LABS: INR 1.11 (0.83-1.13)
[2024-01-02 06:41] LABS: Albumin 3.9 g/dL (3.2-5.2); Albumin/Globulin Ratio 1.3 (1-3); Calcium 9.3 mg/dL (8.6-10.3); Creatinine, Serum 1.47 mg/dL (0.67-1.17); Potassium 3.9 mmol/L (3.5-5.0); Total Bilirubin 0.8 mg/dL (0.2-1.0); Total Protein 6.9 g/dL (6.4-8.9); eGFR CKD-EPI 52.3 (>60)
[2024-01-02 07:06] LABS: High Sensitivity Troponin 1 Hr 7 pg/mL (<20)
[2024-01-02] MEDS: Ondansetron 4 mg VIAL 2 MG/ML 2 ml VIAL IV ONE (07:32)
[2024-01-02] MEDS: Morphine 4 MG/ML VIAL (1 ml) IV ONE (07:38)
[2024-01-02] MEDS ORDERED: Senna TAB 8.6 mg TAB PO PRN (08:14)
[2024-01-02] MEDS ORDERED: Ondansetron 4 mg VIAL 2 MG/ML 2 ml VIAL IV PRN (08:14)
[2024-01-02] MEDS ORDERED: Polyethylene Glycol 3350 17 GM PACKET PO PRN (08:14)
[2024-01-02] MEDS ORDERED: Albuterol HFA INHALER 8 gm MDI INH PRN (09:28)
[2024-01-02] MEDS: Aspirin EC 81 mg TAB.EC (enteric coated) PO SCH (09:39)
[2024-01-02] MEDS: Morphine ER 15 mg TAB ** extended release PO SCH (10:50)
[2024-01-02] MEDS: Prochlorperazine 5 mg/ml 2 ml VIAL (10 mg) IV PRN (10:53)
[2024-01-02] MEDS: Sulfur Hexaflouride MICROSPHR 25 MG VIAL IV ONE (13:20)
[2024-01-02] MEDS ORDERED: Sulfur Hexaflouride MICROSPHR 25 MG VIAL ONE (14:19)
[2024-01-02] MEDS: CMCS:Ranolazine 500 mg TAB ER (NF) PO SCH (20:06)
[2024-01-02] MEDS: Enoxaparin 40 MG/0.4 ML SYR SUBCUT SCH (20:11)
[2024-01-03] MEDS: Fluticasone NASAL SPRAY 50MCG 16 gm SPRAY BTL BOTH NARES SCH (00:05)
[2024-01-03 05:56] LABS: Calcium 9.2 mg/dL (8.6-10.3); Creatinine, Serum 1.46 mg/dL (0.67-1.17); Magnesium 1.5 mg/dL (1.9-2.7); Potassium 3.8 mmol/L (3.5-5.0); eGFR CKD-EPI 52.7 (>60)
[2024-01-03] MEDS ORDERED: Regadenoson 0.4 MG/5 ML SYRINGE ONE (07:31)
[2024-01-03] MEDS: Insulin GLARGINE 100 un/ml 10 ml VIAL SUBCUT SCH (08:16)
[2024-01-03] MEDS: Potassium Chlor 20 meq TAB.ER PO SCH (08:17)
[2024-01-03] MEDS: Cholecalciferol (VIT D3) 1,000 unit TAB PO SCH (08:18)
[2024-01-03] MEDS: Magnesium Sulf 4 GM/100 ML IV 4,000 MG/100 ML BAG IVPB ONE (09:19)
[2024-01-03] MEDS ORDERED: AMINOPHYLLINE 25 MG/ML ONE (12:02)
[2024-01-03 17:12] VITALS: BP 131/80
== END 2024-01-03 17:35 | disposition home or self-care (01) ==
LOC: ED 05:19 → EDHOLD 05:19 → MEDTELE 11:18
PROVIDERS: ADMIT Internal Medicine; ATTEND Internal Medicine